=== PATIENT | female | born 1990 | race Caucasian/White ===

== ENCOUNTER 2016-04-29 23:47 | Emergency (ER) | payer MEDICAID ==
[~2016-04-29] VITALS: Ht 165.1 cm; Wt 167.8 kg
[~2016-04-29 23:47] MED LIST: ALBUTEROL0.09 MG/A3 IH; AMOXIL500 M1 PO; AMOXIL500 MG PO; ATENOLOL25 M1 PO; AUGMENTIN1 TA2 PO; BIAXIN500 MG PO; DARVOCET-N 1001 EACH PO; DIFLUCAN150 MG PO; FERROUS SULFAT325 M2 PO; LABETALOL 100M100 M1 PO; MACROBID100 M3 PO; MEDROL 4MG. DOSE4 MG PO; MOTRIN 400MG.400 MG PO; NADOLOL 20 MG T20 MG PO; ORTHO TRI-CYCLE1 TA1 OR; PRENATAL PLUS1 TA1 PO; PRENATAL TABLE1 EACH PO; PYRIDIUM200 M2 PO; SEPTRA DS 800 M1 TAB PO; VISTARIL25 MG PO; ZYRTEC-D 12HR 51 TER PO
[2016-04-29] MEDS ORDERED: BISOPROLOL FM5 MG PO (23:51)
[2016-04-30 00:29] LABS: URINE BILIRUBIN - DIPSTICK NEGATIVE (NEG); URINE BLOOD NEGATIVE (NEG)
--- NOTE | 2016-04-30 00:33 | Emergency Room Report ---
History of Present Illness Time Seen by [id number] Presenting Problem in Triage Pt arrived:Walked Presenting Problem:PT ADVISES SHE WAS LAYING IN BED AND STARTED HAVING A TIGHTNESS IN HER CHEST AND TINGLING IN BOTH ARMS LAST FOR A FEW MINS. 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 N Clinical Suspician of Infection? N Mental Status: 1 - Regular (Normal Baseline) Sepsis Risk:Low Sepsis Risk Have you (or family members/close friends) recently traveled outside the [place]? N If Yes, where/when: Have you had exposure to infectious disease within the past month? N TB? Other? Specify: Source patient, RN notes reviewed, family, old records Exam Limitations no limitations Comment acute episode of ant chest pain with no def palpatation or syncope with no known ht disease Cardiac Chest Pain Chest pain indicative of cardiac No Timing/Duration this evening Severity moderate ALLERGIES Coded Allergies: latex (Mild, I-ITCHING 10/07/15) Onion (R-[id number]/THROAT 10/07/15) PEANUTS (FOOD) (From PEANUTS (FOOD/DRUG)) (E-[id number]/THROAT 10/07/15) Shrimp (10/07/15) cinnamon (10/07/15) methylprednisolone (10/07/15) onion (10/07/15) Home Medications Reported Medications Bisoprolol Fumarate 5 MG PO DAILY #30 History Medical History General CAD? No Angina: No [place]: No Hypertension? Yes Hyperlipidemia? No CHF? No DVT? No PE? No COPD? No Asthma? Yes Anemia? No GERD? Yes Gastric ulcers? No GI Bleed? No Hernia? No Thyroid Problems? No Hypothyroidism? No CVA? No Seizures? No Diabetes? No Insulin Dependent: No Insulin Pump: No Home FSBS? No Renal Insuffiency? No End Stage Renal Disease? No UTI? No Stones? No BPH? No GB Disease: No Nephritic Syndrome? No Asplenia? No Hepatitis? No Sickle Cell Disease? No Arthritis? No Migraines? No Cataracts? No Glaucoma? No MRSA? No HIV? No TB? No Anxiety? No Depression? No Cancer? No More? 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 Respiratory denies cough, denies shortness of breath, denies wheezing Cardiovascular see HPI, chest pain, denies palpitations, denies syncope Gastrointestinal denies abdominal pain, denies diarrhea, denies vomiting Genitourinary denies: dysuria, frequency, hesitancy, hematuria. Musculoskeletal denies back pain, denies joint pain, denies neck pain Skin denies rash Psychiatric/Neurological denies headache, denies seizure Physical Exam Vital Signs Vital Signs Date Time Temp Pulse Resp B/P Pulse O2 O2 Flow FiO2 Ox Delivery Rate 04/29 2348 98.1 71 16 157/92 98 - WBC >12,000 or <4,000 or 10% bands? 2 or more SIRS Criteria Met? B/P:157/92 MAP:113 Creatinine >2.0? UA output<0.5ml/kg/hr for 2 hrs? Platelet count >100,000? Lactate >2.0mmol/1? INR >1.2 or PTT > than 60 sec? Evidence of Organ Dysfunction? Provider documented clinical suspician of infection? N Sepsis Criteria Count: 0 Sepsis Risk: Low Sepsis Risk General Appearance no apparent distress Eye Exam - bilateral eye PERRL, bilateral eye EOMI Ear, Nose, Throat normal ENT inspection Neck supple Respiratory Status No: respiratory distress. Lung Sounds bilateral: lungs clear. 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 No Results/Orders Laboratory Tests 04/30/16 0010: Sodium 140, Potassium 3.9, Chloride 105, Carbon Dioxide 29, BUN 13, Creatinine 0.8, Estimated Creat Clear 290 H, Estimated GFR (MDRD) 89, Glucose 98, Calcium 9.1, Total Bilirubin 0.2, AST 10 L, ALT 21, Alkaline Phosphatase 122 H, Creatine Kinase 71, CK-MB (CK-2) Rel Index 0.7, CK and CKMB Interp 0.5, Troponin I < 0.02, Total Protein 7.5, Albumin 3.3 L, Globulin 4.2 H, Albumin/Globulin Ratio 0.8 L, D-Dimer 110, WBC 10.2, RBC 4.93, Hgb 14.1, Hct 40.4, MCV 82.0 L, RDW 13.8, Plt Count 264, MPV 6.9 L, Gran % 58.0, Gran # 5.9, Lymphocytes % 36.2 , Monocytes % 4.9, Eosinophils % 0.7, Basophils % 0.2, Lymphocytes # 3.7, Monocytes # 0.5, Eosinophils # 0.1, Basophils # 0.0, PUBS MCHC 35.0, MCH 28.7, Urine Color YELLOW, Urine Appearance CLEAR, Urine pH 6.0, Ur Specific [place] 1.025, Urine Protein NEGATIVE, Urine Ketones NEGATIVE, Urine Blood NEGATIVE, Urine Nitrate NEGATIVE, Urine Bilirubin NEGATIVE, Urine Urobilinogen 0.2, Ur Leukocyte Esterase NEGATIVE, Urine WBC OCC, Ur Squamous Epith Cells OCC, Urine Bacteria 1+, Urine Mucus 1+, Urine Glucose NEGATIVE Current Medication Orders Sig/Ramon Start time Last Medication Dose Route Stop Time Status Admin Sodium Chloride 10 ML PRN PRN 04/29 234 AC IV 04/30 2351 Orders Procedure Date/time Status D-DIMER 04/30 0036 Complete CHEST(2 VIEWS-NOT PORTABLE) 04/30 0000 Active ELECTROCARDIOGRAM REQUEST 04/29 2352 Active IV SALINE LOCK 04/29 2352 Active URINALYSIS/COMPLETE 04/29 2352 Complete URINE 04/29 2352 Complete CBC WITH AUTO DIFF 04/29 2352 Complete CARDIAC ENZYMES 04/29 2352 Complete CHEM 12 PROFILE 04/29 2352 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 of ischemic chgs XRAY/CT/US XRAY/CT/US XRAY chest XR interpretation by reviewed by me Xray Results normal/NAD Departure Departure Time of Disposition 0205 Disposition DC Home or Self Care(routine) Clinical Impression Primary Impression: Chest pain Qualifiers: Chest pain type: unspecified Qualified Code: R07.9 - Chest pain, unspecified Condition STABLE Referrals Duane Ayala MD (Family) Patient Instructions DI for Atypical Chest Pain Additional Instructions see pcp for follow up and addt tests Discharge Counseling Counseled pt/family regarding diagnosis, test results, follow up needs ED Critical Care Critical Care No at 0210
--- NOTE | 2016-04-30 00:33 | Emergency Room Report ---
History of Present Illness Time Seen by [id number] Presenting Problem in Triage Pt arrived:Walked Presenting Problem:PT ADVISES SHE WAS LAYING IN BED AND STARTED HAVING A TIGHTNESS IN HER CHEST AND TINGLING IN BOTH ARMS LAST FOR A FEW MINS. 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 N Clinical Suspician of Infection? N Mental Status: 1 - Regular (Normal Baseline) Sepsis Risk:Low Sepsis Risk Have you (or family members/close friends) recently traveled outside the [place]? N If Yes, where/when: Have you had exposure to infectious disease within the past month? N TB? Other? Specify: Source patient, RN notes reviewed, family, old records Exam Limitations no limitations Comment acute episode of ant chest pain with no def palpatation or syncope with no known ht disease Cardiac Chest Pain Chest pain indicative of cardiac No Timing/Duration this evening Severity moderate ALLERGIES Coded Allergies: latex (Mild, I-ITCHING 10/07/15) Onion (A-[id number]-KFLV/THROAT 10/07/15) PEANUTS (FOOD) (From PEANUTS (FOOD/DRUG)) (N-[id number]/THROAT 10/07/15) Shrimp (10/07/15) cinnamon (10/07/15) methylprednisolone (10/07/15) onion (10/07/15) Home Medications Reported Medications Bisoprolol Fumarate 5 MG PO DAILY #30 History Medical History General CAD? No Angina: No [place]: No Hypertension? Yes Hyperlipidemia? No CHF? No DVT? No PE? No COPD? No Asthma? Yes Anemia? No GERD? Yes Gastric ulcers? No GI Bleed? No Hernia? No Thyroid Problems? No Hypothyroidism? No CVA? No Seizures? No Diabetes? No Insulin Dependent: No Insulin Pump: No Home FSBS? No Renal Insuffiency? No End Stage Renal Disease? No UTI? No Stones? No BPH? No GB Disease: No Nephritic Syndrome? No Asplenia? No Hepatitis? No Sickle Cell Disease? No Arthritis? No Migraines? No Cataracts? No Glaucoma? No MRSA? No HIV? No TB? No Anxiety? No Depression? No Cancer? No More? 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 Respiratory denies cough, denies shortness of breath, denies wheezing Cardiovascular see HPI, chest pain, denies palpitations, denies syncope Gastrointestinal denies abdominal pain, denies diarrhea, denies vomiting Genitourinary denies: dysuria, frequency, hesitancy, hematuria. Musculoskeletal denies back pain, denies joint pain, denies neck pain Skin denies rash Psychiatric/Neurological denies headache, denies seizure Physical Exam Vital Signs Vital Signs Date Time Temp Pulse Resp B/P Pulse O2 O2 Flow FiO2 Ox Delivery Rate 04/29 2348 98.1 71 16 157/92 98 - WBC >12,000 or <4,000 or 10% bands? 2 or more SIRS Criteria Met? B/P:157/92 MAP:113 Creatinine >2.0? UA output<0.5ml/kg/hr for 2 hrs? Platelet count >100,000? Lactate >2.0mmol/1? INR >1.2 or PTT > than 60 sec? Evidence of Organ Dysfunction? Provider documented clinical suspician of infection? N Sepsis Criteria Count: 0 Sepsis Risk: Low Sepsis Risk General Appearance no apparent distress Eye Exam - bilateral eye PERRL, bilateral eye EOMI Ear, Nose, Throat normal ENT inspection Neck supple Respiratory Status No: respiratory distress. Lung Sounds bilateral: lungs clear. 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 No Results/Orders Laboratory Tests 04/30/16 0010: Sodium 140, Potassium 3.9, Chloride 105, Carbon Dioxide 29, BUN 13, Creatinine 0.8, Estimated Creat Clear 290 H, Estimated GFR (MDRD) 89, Glucose 98, Calcium 9.1, Total Bilirubin 0.2, AST 10 L, ALT 21, Alkaline Phosphatase 122 H, Creatine Kinase 71, CK-MB (CK-2) Rel Index 0.7, CK and CKMB Interp 0.5, Troponin I < 0.02, Total Protein 7.5, Albumin 3.3 L, Globulin 4.2 H, Albumin/Globulin Ratio 0.8 L, D-Dimer 110, WBC 10.2, RBC 4.93, Hgb 14.1, Hct 40.4, MCV 82.0 L, RDW 13.8, Plt Count 264, MPV 6.9 L, Gran % 58.0, Gran # 5.9, Lymphocytes % 36.2 , Monocytes % 4.9, Eosinophils % 0.7, Basophils % 0.2, Lymphocytes # 3.7, Monocytes # 0.5, Eosinophils # 0.1, Basophils # 0.0, PUBS MCHC 35.0, MCH 28.7, Urine Color YELLOW, Urine Appearance CLEAR, Urine pH 6.0, Ur Specific [place] 1.025, Urine Protein NEGATIVE, Urine Ketones NEGATIVE, Urine Blood NEGATIVE, Urine Nitrate NEGATIVE, Urine Bilirubin NEGATIVE, Urine Urobilinogen 0.2, Ur Leukocyte Esterase NEGATIVE, Urine WBC OCC, Ur Squamous Epith Cells OCC, Urine Bacteria 1+, Urine Mucus 1+, Urine Glucose NEGATIVE Current Medication Orders Sig/Ramon Start time Last Medication Dose Route Stop Time Status Admin Sodium Chloride 10 ML PRN PRN 04/29 234 AC IV 04/30 2351 Orders Procedure Date/time Status D-DIMER 04/30 0036 Complete CHEST(2 VIEWS-NOT PORTABLE) 04/30 0000 Active ELECTROCARDIOGRAM REQUEST 04/29 2352 Active IV SALINE LOCK 04/29 2352 Active URINALYSIS/COMPLETE 04/29 2352 Complete URINE 04/29 2352 Complete CBC WITH AUTO DIFF 04/29 2352 Complete CARDIAC ENZYMES 04/29 2352 Complete CHEM 12 PROFILE 04/29 2352 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 of ischemic chgs XRAY/CT/US XRAY/CT/US XRAY chest XR interpretation by reviewed by me Xray Results normal/NAD Departure Departure Time of Disposition 0205 Disposition DC Home or Self Care(routine) Clinical Impression Primary Impression: Chest pain Qualifiers: Chest pain type: unspecified Qualified Code: R07.9 - Chest pain, unspecified Condition STABLE Referrals Duane Ayala MD (Family) Patient Instructions DI for Atypical Chest Pain Additional Instructions see pcp for follow up and addt tests Discharge Counseling Counseled pt/family regarding diagnosis, test results, follow up needs ED Critical Care Critical Care No at 0210
[2016-04-30 00:34] LABS: HEMOGLOBIN 14.1 g/dL (12.2-16.2); LYMPH # 3.7 K/mm3 (0.7-4.5); LYMPH % 36.2 % (10-50.0)
[2016-04-30 00:36] LABS: URINE SQUAMOUS CELLS OCC #/hpf (0-5)
[2016-04-30 00:59] LABS: BUN 13 mg/dL (7-18)
[2016-04-30 01:00] LABS: GFR (ESTIMATED) 89 ML/MIN (59-)
[2016-04-30 02:14] VITALS: BP 150/70
--- NOTE | 2016-04-30 05:48 | RADIOLOGY REPORT PS360 ---
CHEST(2 VIEWS-NOT PORTABLE) HISTORY: CHEST PAIN ORDERING PHYSICIAN: Kenia Leone MD PATIENT AGE: 25 years COMPARISON: 11/21/2013 FINDINGS: The cardiomediastinal silhouette and pulmonary vascularity are within normal limits. The lungs are clear without infiltrates, suspicious nodules, or pleural effusions. No acute bony abnormalities. IMPRESSION: Negative chest, no acute finding
== END 2016-04-30 02:14 | disposition home or self-care (01) ==
LOC: ER 23:47
PROVIDERS: Emergency Medicine
DX: R07.9 Chest pain, unspecified (principal); I10 Essential (primary) hypertension; K21.9 Gastro-esophageal reflux disease without esophagitis

== ENCOUNTER 2016-09-07 16:12 | Emergency (ER) | payer MEDICAID ==
[~2016-09-07] VITALS: Ht 165.1 cm; Wt 159.7 kg
[~2016-09-07 16:12] MED LIST changes: +BISOPROLOL FM5 MG PO
[2016-09-07] MEDS ORDERED: VENTOLIN H0.09 MG/Ac IH (16:29)
--- OUTSIDE RECORDS SUMMARY | 2016-09-07 16:35 | External Medical Summary Rpt ---
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 20 50 10 10 D JR 1 PH MG AR WI MA LL TA CY IA BL M ET 03 F 93 8 # 03 93 00 07 09 3 28 28 RI 84 FL Ac 06 -1 -2 .0 TE 19 OR ti 21 6- 0- 00 22 EN ve 25 20 20 AI CE 11 10 10 D 5 PH SA AR RA MA H CY L 03 93 8 # 03 93 NA 00 07 09 5 30 30 RI 84 MC Ac DO 09 -2 -2 .0 TE 29 KE ti LO 34 6- 0- 00 96 RI ve L 23 20 20 AI E 20 50 10 10 D JR 1 PH MG AR WI MA LL TA CY IA BL M ET 03 F 93 8 # 03 93 00 07 08 3 28 28 RI 84 FL Ac 06 -1 -2 .0 TE 19 OR ti 21 6- 3- 00 22 EN ve 25 20 20 AI CE 11 10 10 D 5 PH SA AR RA MA H CY L 03 93 8 # 03 93 NA 00 07 08 5 30 30 RI 84 MC Ac DO 09 -2 -2 .0 TE 29 KE ti LO 34 6- 2- 00 96 RI ve L 23 20 20 AI E 20 50 10 10 D JR 1 PH MG AR WI MA LL TA CY IA BL M ET 03 F 93 8 # 03 93 NA 00 07 07 5 30 30 RI 84 MC Ac DO 37 -2 -2 .0 TE 29 KE ti LO 80 6- 6- 00 96 RI ve L 02 20 20 AI E 20 80 10 10 D JR 1 PH MG AR WI MA LL TA CY IA BL M ET 03 F 93 8 # 03 93 00 07 07 3 28 28 RI 84 FL Ac 06 -1 -1 .0 TE 19 OR ti 21 6- 6- 00 22 EN ve 25 20 20 AI CE 11 10 10 D 5 PH SA AR RA MA H CY L 03 93 8 # 03 93 HY 00 06 06 9. 3 [address] 18 -2 -2 00 TE 95 IN ti OX 50 5- 6- 0 30 EY ve YZ 61 20 20 AI IN 30 10 10 D RI E 1 PH CH PA AR AE M MA L 25 CY S MG 03 93 CA 8 P # 03 93 JIMÉNEZ 00 06 06 14 7 RI 83 GA Ac LF 60 -2 -2 .0 TE 95 IN ti AM 35 5- 6- 00 31 EY ve ET 78 20 20 AI HO 12 10 10 D RI XA 8 PH CH ZO AR AE LE MA L -T CY S MP 03 DS 93 8 TA # BL 03 ET 93 NA 00 04 06 2 30 30 RI 83 MC Ac DO 37 -2 -2 .0 TE 09 KE ti LO 80 3- 5- 00 64 RI ve L 02 20 20 AI E 20 80 10 10 D JR 1 PH MG AR WI MA LL TA CY IA BL M ET 03 F 93 8 # 03 93 NA 00 04 05 2 30 30 RI 83 MC Ac DO 37 -2 -2 .0 TE 09 KE ti LO 80 3- 5- 00 64 RI ve L 02 20 20 AI E 20 80 10 10 D JR 1 PH MG AR WI MA LL TA CY IA BL M ET 03 F 93 8 # 03 93 CE 00 05 05 20 10 RI 83 BE Ac FD 78 -1 -1 .0 TE 45 SS ti IN 12 9- 9- 00 39 ON ve IR 17 20 20 AI [address] 30 0 PH EP 0 AR HE MG MA N CY A CA PS 03 UL 93 E 8 # 03 93 TR 45 05 05 80 15 RI 83 MC Ac IA 80 -0 -0 .0 TE 29 KE ti MC 20 7- 7- 00 81 RI ve IN 06 20 20 AI E OL 43 10 10 D JR ON 6 PH E AR WI 0. MA LL 1% CY IA M CR 03 F EA 93 M 8 # 03 93 NA 00 04 04 2 30 30 RI 83 MC Ac DO 37 -2 -2 .0 TE 09 KE ti LO 80 3- 3- 00 64 RI ve L 02 20 20 AI E 20 80 10 10 D JR 1 PH MG AR WI MA LL TA CY IA BL M ET 03 F 93 8 # 03 93 NA 00 01 03 2 30 30 RI 82 MC Ac DO 37 -2 -2 .0 TE 71 KE ti LO 80 1- 5- 00 55 RI ve L 02 20 20 AI E 20 80 10 10 D JR 1 PH MG AR WI MA LL TA CY IA BL M ET 03 F 93 8 # 03 93 NA 00 01 01 00 30 30 RI 81 MC Ac DO 37 -2 -2 .0 TE 81 KE ti LO 80 1- 8- 00 46 RI ve L 02 20 20 AI E 20 80 10 10 D JR 1 PH MG AR WI M LL TA #3 IA BL 93 M ET 8 F NA 00 07 12 05 30 30 RI 79 MC Ac DO 37 -2 -3 .0 TE 32 KE ti LO 80 7- 1- 00 99 RI ve L 02 20 20 AI E 20 80 09 09 D JR 1 PH MG AR WI M LL TA #3 IA BL 93 M ET 8 F NA 00 07 12 04 30 30 RI 79 Ac DO 37 -2 -0 .0 TE 32 KE ti LO 80 7- 3- 00 99 RI ve L 02 20 20 AI E 20 80 09 09 D JR 1 PH MG AR WI M LL TA #3 IA BL 93 M ET 8 F NA 00 07 11 03 30 30 RI 79 Ac DO 37 -2 -0 .0 TE 32 KE ti LO 80 7- 5- 00 99 RI ve L 02 20 20 AI E 20 80 09 09 D JR 1 PH MG AR WI M LL TA #3 IA BL 93 M ET 8 F CE 00 10 10 00 20 7 RI 80 MC Ac FD 78 -1 -2 .0 TE 39 KE ti IN 12 3- 2- 00 50 RI ve IR 17 20 20 AI E 66 09 09 D JR 30 0 PH 0 AR WI MG M LL #3 IA CA 93 M PS 8 F UL E YA 50 10 10 00 28 28 RI 80 MC Ac Z 41 -1 -2 .0 TE 39 KE ti 28 90 3- 2- 00 52 RI ve 40 20 20 AI E TA 50 09 09 D JR BL 3 PH ET AR WI M LL #3 IA 93 M 8 F OF 61 10 10 00 5. 10 RI 80 MC Ac LO 31 -1 -2 00 TE 39 KE ti XA 40 3- 2- 0 51 RI ve CI 01 20 20 AI E N 50 09 09 D JR 0. 5 PH 3% AR WI M LL EA #3 IA R [address] 8 F OP S NA 00 07 10 02 30 30 RI 79 MC Ac DO 37 -2 -0 .0 TE 32 KE ti LO 80 7- 8- 00 99 RI ve L 02 20 20 AI E 20 80 09 09 D JR 1 PH MG AR WI M LL TA #3 IA BL 93 M ET 8 F NA 00 07 09 01 30 30 RI 79 MC Ac DO 37 -2 -1 .0 TE 32 KE ti LO 80 7- 0- 00 99 RI ve L 02 20 20 AI E 20 80 09 09 D JR 1 PH MG AR WI M LL TA #3 IA BL 93 M ET 8 F AM 65 08 09 00 40 10 RI 79 FL Ac OX 86 -2 -1 .0 TE 77 AN ti IC 20 9- 0- 00 79 AG ve IL 01 20 20 AI AN LI 70 09 09 D N 5 PH JA 50 AR ME 0 M S MG #3 P 93 CA 8 PS UL E JIMÉNEZ 00 08 08 00 20 10 RI 79 MC Ac LF 60 -0 -1 .0 TE 45 KE ti AM 35 5- 3- 00 14 RI ve ET 78 20 20 AI E HO 12 09 09 D JR XA 8 PH ZO AR WI LE M LL -T #3 IA MP 93 M 8 F DS TA BL ET NA 00 07 08 00 30 30 RI 79 MC Ac DO 37 -2 -1 .0 TE 32 KE ti LO 80 7- 3- 00 99 RI ve L 02 20 20 AI E 20 80 09 09 D JR 1 PH MG AR WI M LL TA #3 IA BL 93 M ET 8 F YA 50 07 07 00 28 28 RI 79 JU Ac Z 41 -2 -3 .0 TE 28 DY ti 28 90 2- 0- 00 52 ve 40 20 20 AI NA TA 50 09 09 D TA BL 3 PH LI ET AR E M E #3 93 8 JIMÉNEZ 00 07 07 00 20 10 RI 79 JU Ac LF 60 -2 -3 .0 TE 28 DY ti AM 35 2- 0- 00 51 ve ET 78 20 20 AI NA HO 12 09 09 D TA XA 8 PH LI ZO AR E LE M E -T #3 MP 93 8 DS TA BL ET NA 00 01 07 05 30 30 RI 76 BE Ac DO 37 -2 -0 .0 TE 83 SS ti LO 80 6- 2- 00 56 ON ve L 02 20 20 AI 20 [address] 1 PH EP MG AR HE M N TA #3 A BL 93 ET 8 NA 00 01 06 04 30 30 RI 76 BE Ac DO 37 -2 -0 .0 TE 83 SS ti LO 80 6- 4- 00 56 ON ve L 02 20 20 AI 20 [address] 1 PH EP MG AR HE M N TA #3 A BL 93 ET 8 NA 00 01 05 03 30 30 RI 76 BE Ac DO 37 -2 -0 .0 TE 83 SS ti LO 80 6- 7- 00 56 ON ve L 02 20 20 AI 20 [address] 1 PH EP MG AR HE M N TA #3 A BL 93 ET 8 NA 00 01 04 02 30 30 RI 76 BE Ac DO 37 -2 -0 .0 TE 83 SS ti LO 80 6- 9- 00 56 ON ve L 02 20 20 AI 20 [address] 1 PH EP MG AR HE M N TA #3 A BL 93 ET 8 NA 00 01 03 01 30 30 RI 76 BE Ac DO 37 -2 -1 .0 TE 83 SS ti LO 80 6- 2- 00 56 ON ve L 02 20 20 AI 20 [address] 1 PH EP MG AR HE M N TA #3 A BL 93 ET 8 NA 00 01 02 00 30 30 RI 76 BE Ac DO 37 -2 -1 .0 TE 83 SS ti LO 80 6- 2- 00 56 ON ve L 02 20 20 AI 20 [address] 1 PH EP MG AR HE M N TA #3 A BL 93 ET 8 NA 00 08 01 00 30 30 RI 76 BE Ac DO 37 -1 -1 .0 TE 44 SS ti LO 80 7- 5- 00 70 ON ve L 02 20 20 AI 20 [address] 1 PH EP MG AR HE M N TA #3 A BL 93 ET 8 NA 00 08 12 03 30 30 RI 74 BE Ac DO 37 -1 -0 .0 TE 57 SS ti LO 80 7- 4- 00 31 ON ve L 02 20 20 AI 20 [address] 1 PH EP MG AR HE M N TA #3 A BL 93 ET 8 NA 00 08 10 02 30 30 RI 74 BE Ac DO 37 -1 -2 .0 TE 57 SS ti LO 80 7- 3- 00 31 ON ve L 02 20 20 AI 20 [address] 1 PH EP MG AR HE M N TA #3 A BL 93 ET 8 NA 00 08 09 01 30 30 RI 74 BE Ac DO 37 -1 -2 .0 TE 57 SS ti LO 80 7- 6- 00 31 ON ve L 02 20 20 AI 20 [address] 1 PH EP MG AR HE M N TA #3 A BL 93 ET 8 NA 00 08 08 00 30 30 RI 74 BE Ac DO 37 -1 -2 .0 TE 57 SS ti LO 80 7- 8- 00 31 ON ve L 02 20 20 AI 20 [address] 1 PH EP MG AR HE M N TA #3 A BL 93 ET 8 NA 00 03 08 04 30 30 RI 72 BE Ac DO 37 -2 -0 .0 TE 63 SS ti LO 80 7- 1- 00 16 ON ve L 02 20 20 AI 20 [address] 1 PH EP MG AR HE M N TA #3 A BL 93 ET 8 NA 00 03 07 03 30 30 RI 72 BE Ac DO 37 -2 -0 .0 TE 63 SS ti LO 80 7- 3- 00 16 ON ve L 02 20 20 AI 20 [address] 1 PH EP MG AR HE M N TA #3 A BL 93 ET 8 NA 00 03 06 02 30 30 RI 72 BE Ac DO 37 -2 -0 .0 TE 63 SS ti LO 80 7- 5- 00 16 ON ve L 02 20 20 AI 20 [address] 1 PH EP MG AR HE M N TA #3 A BL 93 ET 8 NA 00 03 05 01 30 30 RI 72 No Ac DO 37 -2 -0 .0 TE 63 t ti LO 80 7- 8- 00 16 Av ve L 02 20 20 AI ai 20 80 08 08 D la 1 PH bl MG AR e M TA #3 BL 93 ET 8 NA 00 03 04 00 30 30 RI 72 No Ac DO 37 -2 -1 .0 TE 63 t ti LO 80 7- 0- 00 16 Av ve L 02 20 20 AI ai 20 80 08 08 D la 1 PH bl MG AR e M TA #3 BL 93 ET 8 NA 00 10 04 05 30 30 RI 70 No Ac DO 37 -0 -0 .0 TE 00 t ti LO 80 3- 7- 00 18 Av ve L 02 20 20 AI ai 20 80 07 08 D la 1 PH bl MG AR e M TA #3 BL 93 ET 8 NA 00 10 03 04 30 30 RI 70 No Ac DO 37 -0 -2 .0 TE 00 t ti LO 80 3- 6- 00 18 Av ve L 02 20 20 AI ai 20 80 07 08 D la 1 PH bl MG AR e M TA #3 BL 93 ET 8 WV 00 02 03 00 8. 2 RI 71 No Ac OM 60 -1 -2 00 TE 93 t ti ET 35 0- 6- 0 51 Av ve [place] 43 20 20 AI ai ZI 82 08 08 D la NE 1 PH bl AR e 25 M #3 MG 93 8 TA BL ET Immunization Name Date Route CVX Reacti Commen Provid Is Given on t er Refuse d MCV4 114 Mening CHAVEZ No MENACW [place] [facility] ACYW1 admini 35 IM stered USE ; formul ation not specif ied. MCV4 136 Mening CHAVEZ No MENACW 2011 [facility] [facility] ACYW-1 admini 35 IM stered USE ; formul ation not specif ied. Vital Signs 03-05-2013 23:12 Name Value Interpretat Reference Comment ion Range BP 77 mm[Hg] Diastolic BP Systolic 128 mm[Hg] Heart 96 /min Rate/Pulse O2% 99 % Respiratory 20 /min Rate 03-05-2013 21:03 Name Value Interpretat Reference Comment ion Range BP 68 mm[Hg] Diastolic BP Systolic 117 mm[Hg] Heart 98 /min Rate/Pulse O2% 97 % Respiratory 18 /min Rate 02-02-2013 16:34 Name Value Interpretat Reference Comment ion Range BP 100 mm[Hg] Diastolic BP Systolic 154 mm[Hg] Heart 80 /min Rate/Pulse O2% 96 % Respiratory 20 /min Rate 02-02-2013 15:40 Name Value Interpretat Reference Comment ion Range BP 79 mm[Hg] Diastolic BP Systolic 159 mm[Hg] Heart 79 /min Rate/Pulse O2% 95 % Respiratory 20 /min Rate 01-23-2013 13:40 Name Value Interpretat Reference Comment ion Range BP 69 mm[Hg] Diastolic BP Systolic 104 mm[Hg] Heart 92 /min Rate/Pulse O2% 99 % Respiratory 18 /min Rate 01-23-2013 11:32 Name Value Interpretat Reference Comment ion Range Heart 95 /min Rate/Pulse O2% 97 % Respiratory 12 /min Rate 01-23-2013 11:04 Name Value Interpretat Reference Comment ion Range BP 71 mm[Hg] Diastolic BP Systolic 119 mm[Hg] 01-17-2013 21:25 Name Value Interpretat Reference Comment ion Range Body 98.2 [degF] Temperature BP 98 mm[Hg] Diastolic BP Systolic 129 mm[Hg] Heart 90 /min Rate/Pulse O2% 100 % Respiratory 20 /min Rate 01-17-2013 20:52 Name Value Interpretat Reference Comment ion Range Heart 81 /min Rate/Pulse O2% 96 % Respiratory 21 /min Rate 01-12-2013 22:54 Name Value Interpretat Reference Comment ion Range Body 97.5 [degF] Temperature BP 88 mm[Hg] Diastolic BP Systolic 129 mm[Hg] Heart 91 /min Rate/Pulse O2% 100 % Respiratory 20 /min Rate 01-12-2013 21:51 Name Value Interpretat Reference Comment ion Range Heart 96 /min Rate/Pulse O2% 98 % Respiratory 20 /min Rate 01-12-2013 21:22 Name Value Interpretat Reference Comment ion Range BP 92 mm[Hg] Diastolic BP Systolic 165 mm[Hg] Results Labs Lab Lab Date Result Refere Interp Status Commen Order Detail nces retati t Range on URINALYSIS/COMPLETE (03-05-2013 20:14) URINE 12-15-2 YELLOW YELLOW complet COLOR 013 ed 20:14 URINE 12-15-2 SL CLEAR complet APPEARA 013 CLOUDY ed NCE 20:14 URINE 12-15-2 NEGATIV NEG complet GLUCOSE 013 E ed - 20:14 DIPSTIC K URINE 12-15-2 NEGATIV NEG complet BILIRUB 013 E ed IN - 20:14 DIPSTIC K URINE 12-15-2 NEGATIV NEG complet KETONE 013 E mg/dL ed 20:14 URINE 12-15-2 Greater 1.005-1 complet SPECIFI 013 than .030 ed C 20:14 or GRAVITY equal to 1.030 URINE 12-15-2 NEGATIV NEG complet BLOOD 013 E ed 20:14 URINE 12-15-2 5.5 UNK 5.0-8.5 complet PH 013 ed 20:14 URINE 12-15-2 NEGATIV NEG complet PROTEIN 013 E mg/dL ed - 20:14 DIPSTIC K URINE 12-15-2 0.2 NEG complet UROBILI 013 E.U./dL ed NOGEN - 20:14 DIPSTIC K URINE 12-15-2 NEGATIV NEG complet NITRATE 013 E ed - 20:14 DIPSTIC K URINE 12-15-2 NEGATIV NEG complet LEUK 013 E ed ESTERAS 20:14 E URINE 12-15-2 10-20 0-5 complet SQUAMOU 013 #/hpf ed S CELLS 20:14 URINE 15-2 4+ NONE complet CALCIUM 013 #/hpf ed 20:14 OXALATE CRYSTAL S URINE 15-2 TRACE OCC complet MUCUS 013 ed 20:14 URINALYSIS/COMPLETE (02-02-2013 16:30) URINE 11-14-2 YELLOW YELLOW complet COLOR 013 ed 16:30 URINE 11-14-2 CLEAR CLEAR complet APPEARA 013 ed NCE 16:30 URINE 11-14-2 NEGATIV NEG complet GLUCOSE 013 E ed - 16:30 DIPSTIC K URINE 11-14-2 NEGATIV NEG complet BILIRUB 013 E ed IN - 16:30 DIPSTIC K URINE 11-14-2 NEGATIV NEG complet KETONE 013 E mg/dL ed 16:30 URINE 11-14-2 Less 1.005-1 complet SPECIFI 013 than or .030 ed C 16:30 equal GRAVITY to 1.005 URINE 11-14-2 NEGATIV NEG complet BLOOD 013 E ed 16:30 URINE 11-14-2 6.5 UNK 5.0-8.5 complet PH 013 ed 16:30 URINE 11-14-2 NEGATIV NEG complet PROTEIN 013 E mg/dL ed - 16:30 DIPSTIC K URINE 11-14-2 0.2 NEG complet UROBILI 013 E.U./dL ed NOGEN - 16:30 DIPSTIC K URINE 11-14-2 NEGATIV NEG complet NITRATE 013 E ed - 16:30 DIPSTIC K URINE 11-14-2 NEGATIV NEG complet LEUK 013 E ed ESTERAS 16:30 E URINE 11-14-2 3-5 O complet WBC 013 wbc/hpf ed 16:30 URINE 11-14-2 OCC 0-5 complet SQUAMOU 013 #/hpf ed S CELLS 16:30 AMNISURE RUPTURE TEST (02-02-2013 15:40) AMNISUR 11-14-2 NEGATIV complet E 013 E FOR ed 15:40 RUPTURE RUPTURE TEST URINALYSIS/COMPLETE (01-23-2013 11:15) URINE 11-04-2 YELLOW YELLOW complet COLOR 013 ed 11:15 URINE 11-04-2 CLEAR CLEAR complet APPEARA 013 ed NCE 11:15 URINE 11-04-2 NEGATIV NEG complet GLUCOSE 013 E ed - 11:15 DIPSTIC K URINE 01-23-2 NEGATIV NEG complet BILIRUB 013 E ed IN - 11:15 DIPSTIC K URINE 01-23-2 NEGATIV NEG complet KETONE 013 E mg/dL ed 11:15 URINE 01-23-2 1.010 1.005-1 complet SPECIFI 013 UNK .030 ed C 11:15 GRAVITY URINE 01-23-2 NEGATIV NEG complet BLOOD 013 E ed 11:15 URINE 01-23-2 7.5 UNK 5.0-8.5 complet PH 013 ed 11:15 URINE 01-23-2 NEGATIV NEG complet PROTEIN 013 E mg/dL ed - 11:15 DIPSTIC K URINE 01-23-2 0.2 NEG complet UROBILI 013 E.U./dL ed NOGEN - 11:15 DIPSTIC K URINE 01-23-2 NEGATIV NEG complet NITRATE 013 E ed - 11:15 DIPSTIC K URINE 01-23-2 NEGATIV NEG complet LEUK 013 E ed ESTERAS 11:15 E URINE 01-23-2 OCC 0 complet RBC 013 rbc/hpf ed 11:15 URINE 01-23-2 3-5 O complet WBC 013 wbc/hpf ed 11:15 URINE 01-23-2 3-5 0-5 complet SQUAMOU 013 #/hpf ed S CELLS 11:15 B-HCG Ur Ql (01-17-2013 20:12) B-HCG 01-17-2 POSITIV NEG complet Ur Ql 013 E ed 20:12 URINALYSIS/COMPLETE (01-17-2013 20:12) URINE 01-17-2 YELLOW YELLOW complet COLOR 013 ed 20:12 URINE 01-17-2 SL CLEAR complet APPEARA 013 CLOUDY ed NCE 20:12 URINE 01-17-2 NEGATIV NEG complet GLUCOSE 013 E ed - 20:12 DIPSTIC K URINE 01-17-2 NEGATIV NEG complet BILIRUB 013 E ed IN - 20:12 DIPSTIC K URINE 01-17-2 NEGATIV NEG complet KETONE 013 E mg/dL ed 20:12 URINE 01-17-2 Greater 1.005-1 complet SPECIFI 013 than .030 ed C 20:12 or GRAVITY equal to 1.030 URINE 01-17-2 NEGATIV NEG complet BLOOD 013 E ed 20:12 URINE 01-17-2 6.0 UNK 5.0-8.5 complet PH 013 ed 20:12 URINE 01-17-2 NEGATIV NEG complet PROTEIN 013 E mg/dL ed - 20:12 DIPSTIC K URINE 01-17-2 0.2 NEG complet UROBILI 013 E.U./dL ed NOGEN - 20:12 DIPSTIC K URINE 01-17-2 NEGATIV NEG complet NITRATE 013 E ed - 20:12 DIPSTIC K URINE 01-17-2 NEGATIV NEG complet LEUK 013 E ed ESTERAS 20:12 E URINE 01-17-2 3-5 0 complet RBC 013 rbc/hpf ed 20:12 URINE 01-17-2 OCC O complet WBC 013 wbc/hpf ed 20:12 URINE 01-17-2 10-20 0-5 complet SQUAMOU 013 #/hpf ed S CELLS 20:12 URINE 01-17-2 1+ O complet BACTERI 013 ed A 20:12 URINE 01-17-2 1+ OCC complet MUCUS 013 ed 20:12 URINALYSIS/COMPLETE (01-12-2013 22:30) URINE 24-2 YELLOW YELLOW complet COLOR 013 ed 22:30 URINE 01-12-2 CLEAR CLEAR complet APPEARA 013 ed NCE 22:30 URINE 01-12-2 NEGATIV NEG complet GLUCOSE 013 E ed - 22:30 DIPSTIC K URINE 01-12-2 NEGATIV NEG complet BILIRUB 013 E ed IN - 22:30 DIPSTIC K URINE 01-12-2 1+ NEG complet KETONE 013 mg/dL ed 22:30 URINE 10-24-2 Less 1.005-1 complet SPECIFI 013 than or .030 ed C 22:30 equal GRAVITY to 1.005 URINE 10-24-2 3+ NEG complet BLOOD 013 ed 22:30 URINE 10-24-2 6.0 UNK 5.0-8.5 complet PH 013 ed 22:30 URINE 10-24-2 NEGATIV NEG complet PROTEIN 013 E mg/dL ed - 22:30 DIPSTIC K URINE 10-24-2 0.2 NEG complet UROBILI 013 E.U./dL ed NOGEN - 22:30 DIPSTIC K URINE 10-24-2 NEGATIV NEG complet NITRATE 013 E ed - 22:30 DIPSTIC K URINE 10-24-2 NEGATIV NEG complet LEUK 013 E ed ESTERAS 22:30 E URINE 24-2 5-10 0 complet RBC 013 rbc/hpf ed 22:30 URINE 1024-2 20-50 0-5 complet SQUAMOU 013 #/hpf ed S CELLS 22:30 Procedures Procedure DOS Code Location Performer Comment FIBRIN 24126 LEANDRO REEVES DGRADJ 7 [facility] PRODUCTS INC INC D-DIMER QUAL/SEMI COMFORT ECG 66665 LEANDRO REEVES ROUTINE 7 [facility] ECG INC INC W/LEAST 12 LDS TRCG ONLY W/O I&R CREATINE 84634 LEANDRO REEVES KINASE 7 [facility] TOTAL INC INC BLOOD 79974 LEANDRO REEVES COUNT 7 [facility] COMPLETE INC INC AUTO&AUTO DIFRNTL WBC URNLS DIP 02537 LEANDRO REEVES 7 [facility] STICK/TAB INC INC [place] [address] LEANDRO REEVES TROPONIN 7 [facility] QUANTITAT INC INC OPAL ECG 86432 LEANDRO FERRELL ROUTINE 7 [facility] W/LEAST P 12 LDS I&R ONLY RADIOLOGI 11719 [facility] C EXAM 7 MEDICAL MEDICAL CHEST 2 IMAGING IMAGING VIEWS ASS ASS FRONTAL&L ATERAL URINE 40430 LEANDRO REEVES 7 [facility] TEST INC INC VISUAL COLOR CMPRSN METHS COMPREHEN 98232 LEANDRO REEVES SIVE 7 [facility] METABOLIC INC INC PANEL CREATINE 82643 LEANDRO REEVES KINASE MB 7 [facility] FRACTION INC INC ONLY ECHO 47983 [place] [facility] R-T 6 MEDICAL 2D SERV W/WOM-MOD FOUNDATIO E COMPL N SPEC&COLR D LIPID 76033 LEANDRO REEVES PANEL 6 [facility] INC INC BLOOD 67264 LEANDRO REEVES COUNT 6 [facility] COMPLETE INC INC AUTO&AUTO DIFRNTL WBC COLLECTIO 67134 LEANDRO REEVES N VENOUS 6 [facility] BLOOD INC INC VENIPUNCT URE COMPREHEN 03443 LEANDRO REEVES SIVE 6 [facility] [address] LEANDRO REEVES THYROID 6 [facility] STIMULATI INC INC NG HORMONE TSH DELIVERY [id number] LEANDRO REEVES PRODUCTS 6 [facility] OF INC INC CONCEPTIO N EXTERNAL NEURAXIAL 42311 [facility] FEEBACK LABOR 6 ANESTH REE ANALG/ANE OF THE S PLND BLUE VAGINAL DELIVERY VAGINAL 31424 [facility] DELIVERY 6 PHYSICIAN VARUN ONLY S GROUP W/POSTPAR MIC CARE URNLS DIP 12401 LEANDRO REEVES 6 [facility] STICK/TAB INC INC LET REAGENT AUTO MICROSCOP Y EVAL C/V 98814 LEANDRO REEVES AMNIOTIC 6 [facility] FLUID INC INC PROTEIN QUAL EA SPECIMEN 73204 LEANDRO REEVES NONSTRESS 6 [facility] TEST INC INC BASIC 59954 LEANDRO REEVES METABOLIC 6 [facility] [place] [address] LEANDRO REEVES BLOOD/URI 6 [facility] C ACID INC INC TRANSFERA 28438 LEANDRO REEVES SE 6 [facility] ASPARTATE INC INC AMINO AST SGOT TRANSFERA 08826 LEANDRO REEVES SE 6 [facility] ALANINE INC INC AMINO ALT SGPT URNLS DIP 21090 LEANDRO REEVES 6 [facility] STICK/TAB INC INC LET REAGENT AUTO MICROSCOP Y BLOOD 40051 LEANDRO REEVES COUNT 6 [facility] COMPLETE INC INC AUTO&AUTO DIFRNTL WBC ECG 96395 ASHLEY SINHA ROUTINE 6 MEDICAL NAN ECG SERV W/LEAST FOUNDATIO 12 LDS N I&R ONLY THROMBOPL 05825 LEANDRO REEVES ASTIN 6 [facility] TIME INC INC PARTIAL PLASMA/WH OLE BLOOD CULTURE 42871 LEANDRO REEVES BACTERIAL 6 [facility] INC INC QUANTTATI VE COLONY COUNT URINE FIBRIN 72874 LEANDRO REEVES DGRADJ 6 [facility] PRODUCTS INC INC D-DIMER QUAL/SEMI COMFORT FIBRINOGE 88722 LEANDRO REEVES N 6 [facility] ACTIVITY INC INC PROTHROMB 30793 LEANDRO REEVES IN TIME 6 [facility] INC INC ECG 48188 [facility] ROUTINE 6 Y Y ECG [facility] W/LEAST 12 LDS TRCG ONLY W/O I&R 82367 [facility] NONSTRESS 6 PHYSICIAN CORI TEST S GROUP 65138 [facility] NONSTRESS 6 PHYSICIAN VARUN TEST S GROUP URNLS DIP 61185 LEANDRO REEVES 6 [facility] STICK/TAB INC INC LET REAGENT AUTO MICROSCOP Y CULTURE 59636 [facility] BACTERIAL 6 [facility] INC INC QUANTTATI VE COLONY COUNT URINE US PREG 59649 [facility] UTERUS 6 PHYSICIAN VARUN REAL TIME S GROUP F/U TRNSABDL PER FETUS HANDLG&/O 67122 [facility] R CONVEY 6 PHYSICIAN VARUN OF SPEC S GROUP FOR TR OFFICE TO LAB 54885 [facility] 6 PHYSICIAN VARUN AL S GROUP PROFILE W/O NON-STRES S TESTING PARTICLE 47977 [facility] AGGLUTINA 6 [facility] [place] [address] [facility] INFUSION 6 [facility] THERAPY/P INC INC ROPHYLAXI S /DX 1ST TO 1 HR [address]1998 [facility] NONSTRESS 6 [facility] TEST INC INC UNCLASSIF J3490 [facility] IED DRUGS 6 [facility] INC INC COLLECTIO 15878 [facility] N 6 PHYSICIAN VARUN CAPILLARY S GROUP BLOOD SPECIMEN GLUCOSE 23878 [facility] POST 6 PHYSICIAN PHYSICIAN GLUCOSE S GROUP S GROUP DOSE URNLS DIP 66608 [facility] STICK/TAB INC INC LET REAGENT AUTO MICROSCOP Y EVAL C/V 65408 [facility] AMNIOTIC 6 [facility] FLUID INC INC PROTEIN QUAL EA SPECIMEN 95055 [facility] NONSTRESS 6 PHYSICIAN VARUN TEST S GROUP 35316 [facility] NONSTRESS 6 PHYSICIAN VARUN TEST S GROUP URNLS DIP 20085 [facility] STICK/TAB INC INC LET REAGENT AUTO [place]CROSCOP [place] PREG 03700 [facility] UTERUS 6 [facility] AFTER 1ST IMAGING TRIMEST ASS GESTATION [place] PREG 35852 [facility] UTERUS 6 [facility] W/DETAIL INC INC MONALISA 1ST GESTATION IAADIADOO 36963 [facility]ON 6 [facility] INTERNAL CCUS MED GROUP A UNCLASSIF J3490 [facility] IED DRUGS 6 [facility] INC INC CULTURE 59447 [facility] BCT 6 [facility] ISOL&PRSM INC INC PTV ID ISOLATE EA URINE CULTURE 91278 [facility] BACTERIAL 6 [facility] INC INC QUANTTATI VE COLONY COUNT URINE SUSCEPTIB 06141 [facility] LTY STDY 6 [facility] ANTIMICRB INC INC IAL MICRO/AGA R DILUTJ URNLS DIP 21960 [facility] STICK/TAB INC INC LET REAGENT AUTO MICROSCOP Y RADEX 32122 [facility] ANKLE 6 [facility] COMPLETE INC INC MINIMUM 3 VIEWS RADIOLOGI 77271 [facility] C 6 [facility] EXAMINATI INC INC ON KNEE 3 VIEWS RADIOLOGI 51457 [facility]LE[facility] ALL C 6 MEDICAL EXAMINATI IMAGING ON ANKLE ASS 2 VIEWS RADIOLOGI 62719 [facility] ALL C 6 MEDICAL EXAMINATI IMAGING ON KNEE ASS 1/2 VIEWS INF AGT G0432 [facility] AB DETECT 6 [facility] EIA TECH INC INC HIV-1&/HI V-2 SCR ALPHA-FET 25872 [facility] OPROTEIN 6 [facility] SERUM INC INC OBSTETRIC 74469 [facility] PANEL 6 [facility] INC INC COLLECTIO 82522 [facility] N VENOUS 6 [facility] BLOOD INC INC VENIPUNCT URE GONADOTRO 50942 [facility] PIN 6 [facility] [place] [address] [facility]AN[facility] ESTRIOL [address] [facility] [place] PREG [address]29 [facility] GUILHERME UTERUS 5 PHYSICIAN VARUN REAL TIME S GROUP W/IMAGE DCMTN TRANSVAG IADNA 79574 [facility] CHLAMYDIA 5 [facility] INC INC TRACHOMAT IS AMPLIFIED PROBE TQ IADNA 71904 [facility] NEISSERIA 5 [facility] INC [place] [address] [facility] THYROID 5 [facility] STIMULATI INC INC NG HORMONE TSH COMPREHEN 13286 [facility] SIVE 5 [facility] [facility] METABOLIC INC INC PANEL COLLECTIO 66238 LEANDRO REEVES N VENOUS 5 [facility] BLOOD INC INC VENIPUNCT URE CUL BACT 10181 LEANDRO REEVES XCPT 5 [facility] URINE INC INC BLOOD/STO OL AEROBIC ISOL BLOOD 91295 LEANDRO REEVES COUNT 5 [facility] COMPLETE INC INC AUTO&AUTO DIFRNTL WBC BASIC 77495 LEANDRO REEVES METABOLIC 5 [facility] PANEL INC INC CALCIUM TOTAL TX MISSED 23130 [facility] GUILHERME 5 PHYSICIAN VARUN FIRST S GROUP TRIMESTER SURGICAL ECG 01948 LEANDRO BERRY JR ROUTINE 5 [facility] W/LEAST P 12 LDS I&R ONLY BLOOD 38397 LEANDRO REEVES COUNT 5 [facility] COMPLETE INC INC AUTO&AUTO DIFRNTL WBC ANESTHESI 32497 [facility] NARVAEZ MICHELE A 5 ANESTH INCOMPLET OF THE E/[place] [address] [facility], MICHAEL SURG 5 [facility] PATHOLOGY GROSS&TONY ROSCOPIC EXAM BLOOD 57948 LEANDRO REEVES COUNT 5 [facility] COMPLETE INC INC AUTO&AUTO DIFRNTL WBC URNLS DIP 44790 LEANDRO REEVES 5 [facility] STICK/TAB INC INC LET REAGENT AUTO MICROSCOP Y COMPREHEN 76839 LEANDRO REEVES SIVE 5 [facility] METABOLIC INC INC PANEL GONADOTRO 41663 LEANDRO REEVES PIN 5 [facility] CHORIONIC INC INC QUANTITAT OPAL US PREG 94882 ALVIN RUIZ UTERUS 5 [facility]ICAL JANE REAL TIME IMAGING W/IMAGE ASS DCMTN TRANSVAG US PREG 80983 LEANDRO REEVES UTERUS 5 [facility] REAL TIME INC INC W/IMAGE DCMTN TRANSVAG INF AGT G0432 LEANDRO REEVES AB DETECT 5 [facility] EIA TECH INC INC HIV-1&/HI V-2 SCR OBSTETRIC 49007 LEANDRO REEVES PANEL 5 [facility] INC INC COLLECTIO 95504 LEANDRO REEVES N VENOUS 5 [facility] BLOOD INC INC VENIPUNCT URE IADNA 21988 [facility], SALVADOR CHLAMYDIA 5 [facility] TRACHOMAT IS AMPLIFIED PROBE TQ IADNA 50894 [facility], [facility] NEISSERIA 5 LLC GONORRHOE AE AMPLIFIED PROBE TQ CYTP 91145 [facility], SAL[facility]ADOR CERVICAL/ 5 LLC VAGINAL REQ INTERP PHYSICIAN CYTP C/V 35756 [facility], SAL[facility] AUTO THIN 5 LLC LYR PREPJ SCR MNL RESCR PHYS CONTRACEP A4267 [facility] TIVE 5 [facility] SUPPLY [facility] DEPT [facility] DEPT CONDOM KORI KORI MALE EACH IADNA 57642 [facility] NEISSERIA 5 [facility] DEPT [facility] DEPT GONORRHOE KORI KORI AE AMPLIFIED PROBE TQ URNLS DIP 30415 [facility] 5 [facility] STICK/TAB [facility] DEPT [facility] DEPT LET RGNT KORI KORI NON-AUTO W/O MICRSCP IADNA 25703 [facility] CHLAMYDIA 5 [facility] DEPT TRACHOMAT KORI KORI IS AMPLIFIED PROBE TQ ECG [address] [facility] ROUTINE 4 NNAMDI ECG EMERGENCY W/LEAST PHYS 12 LDS I&R ONLY VAGINAL 51759 GUILHERME VANEGAS DELIVERY 4 VARUN VARUN ONLY W/POSTPAR MCI CARE NEURAXIAL 27660 ALEE [facility] 4 ANALG/ANE S PLND VAGINAL DELIV[place]PA[place] OF 7569 LEANDRO REEVES OTHER 4 [facility] CURRENT INC INC OBSTETRIC LACERATIO N 38620 GUILHERME VANEGAS BIOPHYSIC 4 VARUN VARUN AL PROFILE W/O NON-STRES S TESTING CUL BACT 78238 COMBINED COMBINED XCPT 4 PHYSICIAN PHYSICIAN URINE S LA S LA BLOOD/STO OL AEROBIC ISOL US PREG 93331 VANEGAS VANEGAS UTERUS 4 VARUN VARUN REAL TIME F/U TRNSABDL PER FETUS DOPPLER 66776 VANEGAS VANEGAS VELOCIMET 4 VARUN VARUN RY UMBILICAL ARTERY DOPPLER 32960 VANEGAS VANEGAS VELOCIMET 4 VARUN VARUN RY UMBILICAL ARTERY US PREG 67927 VANEGAS VANEGAS UTERUS 4 VARUN VARUN REAL TIME F/U TRNSABDL PER FETUS 89685 VANEGAS VANEGAS BIOPHYSIC 4 VARUN VARUN AL PROFILE W/O NON-STRES S TESTING COLLECTIO 23909 VANEGAS VANEGAS N 4 VARUN VARUN CAPILLARY BLOOD SPECIMEN GLUCOSE 77114 VANEGAS VANEGAS TOLERANCE 4 VARUN VARUN TEST GTT 3 SPECIMENS 41516 MARBELLA SHEIKHPEL NONSTRESS 4 CORI CORI TEST 67667 MANNIE SHEIKHPEL NONSTRESS 3 MARBELLA CABRERA CORI TEST US PREG 94763 GUILHERME VANEGAS UTERUS 3 VARUN VARUN AFTER TRIMEST GESTATION TISS JENNIFER 86014 LEANDRO REEVES SLIDE 3 [facility] SAMPS INC INC SKN/HR/NL S FNGI/ECTO PARASIT SMR PRIM 72355 LEANDRO REEVES SRC WET 3 [facility] MOUNT INC INC NFCT AGT URNLS DIP 72331 LEANDRO REEVES 3 [facility] STICK/TAB INC INC LET REAGENT AUTO MICROSCOP Y US PREG 58043 SARA SARA UTERUS 3 JANE JANE REAL TIME W/IMAGE DCMTN TRANSVAG URNLS DIP 96504 LEANDRO REEVES 3 [facility] STICK/TAB INC [place] [address] LEANDRO REEVES 3 [facility] UTERUS INC INC LIMITED 1/> FETUSES EVAL C/V 70405 LEANDRO REEVES AMNIOTIC 3 [facility] FLUID INC INC PROTEIN QUAL EA SPECIMEN US PREG 89329 SARA SARA UTERUS 3 JANE JANE AFTER 1ST TRIMEST 1/ GESTATION TISS JENNIFER 30437 LEANDRO REEVES SLIDE 3 [facility] SAMPS INC INC SKN/HR/NL S FNGI/ECTO PARASIT SMR PRIM 22211 LEANDRO REEVES SRC WET 3 [facility] MOUNT INC INC NFCT AGT US PREG 12850 LEANDRO REEVES UTERUS 3 [facility] REAL TIME INC INC W/IMAGE DCMTN TRANSVAG URNLS DIP 86895 LEANDRO REEVES 3 [facility] STICK/TAB INC INC LET REAGENT AUTO MICROSCOP Y URNLS DIP 61707 LEANDRO REEVES 3 [facility] STICK/TAB INC INC LET REAGENT AUTO MICROSCOP Y URINE 61246 LEANDRO REEVES 3 [facility] TEST INC INC VISUAL COLOR CMPRSN METHS US PREG 64941 GUILHERME SNOWE UTERUS 3 VARUN VARUN REAL TIME W/IMAGE DCMTN TRANSVAG URNLS DIP 03994 LEANDRO REEVES 3 [facility] STICK/TAB INC INC LET REAGENT AUTO MICROSCOP Y US PREG 94016 SARA SARA UTERUS 3 JANE JANE REAL TIME W/IMAGE DCMTN TRANSVAG US PREG 72651 VANEGAS VANEGAS UTERUS 3 VARUN VARUN REAL TIME W/IMAGE DCMTN TRANSVAG ANTIBODY 71982 COMBINED COMBINED CHLAMYDIA 3 PHYSICIAN PHYSICIAN S LA S LA CUL BACT 47594 COMBINED COMBINED XCPT 3 PHYSICIAN PHYSICIAN URINE S LA S LA BLOOD/STO OL AEROBIC ISOL URINE 43373 GUILHERME SNOWE 3 VARUN VARUN TEST VISUAL COLOR CMPRSN METHS URINE 47894 LEANDRO REEVES 3 [facility] CENTER VISUAL COLOR CMPRSN METHS DEMO&/PETR 94125 KAILASH KAILASH L OF PT 2 NIKKY NIKKY UTILIZ AERSL GEN/NEB/I NHLR/IP INTRACUTA 22277 KAILASH KAILASH NEOUS 2 NIKKY NIKKY TESTS W/ALLERGE LUCY EXTRACTS PERCUTANE 65478 KAILASH KAILASH OUS TESTS 2 NIKKY NIKKY W/ALLERGE LUCY EXTRACTS BRNCDILAT 69472 KALIASH KAILASH RSPSE 2 NIKKY NIKKY SPMTRY PRE&POST- BRNCDILAT ADMN IM ADM 88263 LEANDRO CHAVEZON PRQ ID 2 [facility] SUB[facility]IM C[facility] CENTER NJXS 1 VACCINE MCV4 14179 LEANDRO REEVES MENACWY 2 [facility] CON[facility] VACC CENTER CENTER GRPS ACYW-135 IM USE URINE 90651 LEANDRO REEVES 2 [facility] TEST INC INC VISUAL COLOR CMPRSN METHS PRESSURIZ 42189 LEANDRO REEVES ED/NONPRE 2 [facility] SSURIZED INC INC INHALATIO N TREATMENT RADIOLOGI 82127 LEANDRO REEVES C EXAM 2 [facility] CHEST 2 INC INC VIEWS FRONTAL&L ATERAL FRAMES V2020 [place] [facility] FELIX YULIYA PURCHASES 2 FITTING 35489 [place] [facility] [place] [facility] SPECTACLE 2 S XCPT APHAKIA MONOFOCAL SPHERE V2100 [place] YUL[facility]YA [place] YUL[facility]YA SINGLE 2 VISION [facility]AN[facility] +/- 4.00 PER LENS DETERMINA 99652 [place] [facility] [place] [facility] TION 2 [facility]RACTIV E STATE OPHTH 19483 [facility] DWYER [place] [facility] MEDICAL 2 XM&EVAL COMPRHNSV ESTAB PT 1/> COMPREHEN 14662 LEANDRO REEVES SIVE 1 [facility] METABOLIC INC INC PANEL IMMUNOASS 53448 LEANDRO LUIS AY NFCT 1 [facility] AGT ANTB INC QUAL/SEMI COMFORT 1 STEP ANTIBODY 04444 LEANDRO REEVES IRASEMA-B 1 [facility] ARR EB INC INC VIRUS VIRAL CAPSID VCA BLOOD 92284 LEANDRO REEVES COUNT 1 [facility] COMPLETE INC INC AUTO&AUTO DIFRNTL WBC IM ADM 10353 LEANDRO REEVES PRQ ID 1 [facility] SUB[facility] CENTER CENTER NJXS 1 [place] [address] LEANDRO REEVES STREPTOCO 1 [facility] CCUS INC INC GROUP A SUSCEPTIB 38959 LEANDRO REEVES LTY STDY 1 [facility] ANTIMICRB INC INC IAL MICRO/AGA R DILUTJ CUL BACT 12623 LEANDRO REEVES AEROBIC 1 [facility] ADDL INC INC METHS DEFINITIV E EA ISOL CUL BACT 42632 LEANDRO REEVES XCPT 1 [facility] URINE INC INC BLOOD/STO OL AEROBIC ISOL RADIOLOGI 91752 LEANDRO REEVES C 1 [facility] EXAMINATI INC INC ON KNEE 3 VIEWS RADEX 92110 LEANDRO REEVES ANKLE 1 [facility] COMPLETE INC [place] [address] [place] [address] LEANDRO REEVES HEAD/BRAI 1 [facility] N W/O INC INC CONTRAST MATERIAL URINE 53153 LEANDRO REEVES 1 [facility] TEST INC INC VISUAL COLOR CMPRSN METHS BASIC 78305 LEANDRO REEVES METABOLIC 1 [facility] PANEL INC INC CALCIUM TOTAL BLOOD 33735 LEANDRO REEVES COUNT 1 [facility] COMPLETE INC INC AUTO&AUTO DIFRNTL WBC URNLS DIP 49075 LEANDRO REEVES 1 [facility] STICK/TAB INC INC LET REAGENT AUTO MICROSCOP Y 3D 44679 LEANDRO REEVES RENDERING 1 [facility] W/INTERP INC INC & POSTPROCE SS SUPERVISI ON OPHTH 97538 ZAKI SHEFFIELD MEDICAL 1 XM&EVAL COMPRE NEW PT 1/> VST FITTING 08875 ZAKI SHEFFIELD SPECTACLE 1 S XCPT APHAKIA MONOFOCAL SPHERE V2100 ZAKI SHEFFIELD SINGLE 1 VISION PLANO +/- 4.00 PER LENS DETERMINA 04425 ZAKI SHEFFIELD TION 1 REFRACTIV E STATE FRAMES V2020 ZAKI SHEFFIELD PURCHASES 1 RADEX 30709 LEANDRO CHAVEZON ANKLE 0 [facility] COMPLETE INC INC MINIMUM 3 VIEWS CLOSURE 8659 LEANDRO REEVES SKIN&SUBC 0 [facility] UTANEOUS INC INC TISSUE OTHER SITES SIMPLE 96958 KRIS NEGRETEMAN REPAIR 0 EMERGENCY III, SCALP/NEC SERVICES JONATAN K/AX/RAJIV T/TRUNK ASSOCIATE 2.5CM/< S CULTURE 41845 LEANDROMURPHY REEVES BACTERIAL 0 [facility] INC INC QUANTTATI VE COLONY COUNT URINE URNLS DIP 11536 LEANDRO REEVES 0 [facility] STICK/TAB INC INC LET REAGENT AUTO MICROSCOP Y URNLS DIP 86628 LEANDRO LEANDRO 9 [facility] STICK/TAB INC INC LET REAGENT AUTO MICROSCOP Y CULTURE 90830 LEANDRO REEVES BCT 9 [facility] ISOL&PRSM INC INC PTV ID ISOLATE EA URINE SUSCEPTIB 40131 LEANDROMURPHY REEVES LTY STDY 9 [facility] ANTIMICRB INC INC IAL MICRO/AGA R DILUTJ CULTURE 34994 LEANDRO REEVES BACTERIAL 9 [facility] INC INC QUANTTATI VE COLONY COUNT URINE BLOOD 12778 LEANDRO REEVES COUNT 9 [facility] COMPLETE INC INC AUTO&AUTO DIFRNTL WBC URNLS DIP 64965 LEANDRO CHAVEZON 9 [facility] STICK/TAB INC INC LET REAGENT AUTO MICROSCOP Y CORTISOL 50963 LEANDRO REEVES TOTAL 9 [facility] INC INC COMPREHEN 18203 LEANDRO REEVES SIVE 9 [facility] [address] LEANDRO REEVES THYROID 9 [facility] STIMULATI INC INC NG HORMONE TSH US PELVIC 42241 LEANDRO REEVES 8 [facility] NONOBSTET INC INC NIHARIKA REAL-TIME IMAGE COMPLETE BLOOD 82044 MANNIE TYSON, COUNT 8 MARBELLA Vazquez HEMOGLOBI N BLOOD 47479 LEANDRO REEVES COUNT 8 [facility] COMPLETE INC INC AUTO&AUTO DIFRNTL WBC CT PELVIS 38032 LEANDRO REEVES W/O 8 [facility] CONTRAST INC INC MATERIAL CULTURE 85129 LEANDRO REEVES BACTERIAL 8 [facility] INC INC QUANTTATI VE COLONY COUNT URINE BASIC 38100 LEANDRO LEANDRO METABOLIC 8 [facility] PANEL INC INC CALCIUM TOTAL URNLS DIP 74017 LEANDRO REEVES 8 [facility] STICK/TAB INC [place] [address] IOWA SARA, ABDOMEN 8 MEDICAL YUMI W/O IMAGING CONTRAST ASSOCIATE MATERIAL S URINE 53065 LEANDRO REEVES 8 [facility] TEST INC INC VISUAL COLOR CMPRSN METHS 3D 08667 LEANDRO REEVES RENDERING 8 [facility] INC INC W/INTERP& POSTPROC DIFF WORK STATION CLOSURE 8659 LEANDRO REEVES SKIN&SUBC 8 [facility] UTANEOUS INC INC TISSUE OTHER SITES SPHERE V2100 FELIX [place], SINGLE 8 AMBER A AMBER A VISION PLANO +/- 4.00 PER LENS FRAMES V2020 FELIX [place], PURCHASES 8 AMBER A AMBER A OPHTH 67774 FELIX [place], MEDICAL 8 AMBER A AMBER A XM&EVAL COMPRE NEW PT 1/> [place] [address] LEANDRO REEVES ABDOMINAL 8 [facility] REAL INC INC TIME W/IMAGE LIMITED URNLS DIP 97247 KEV ANGULO 8 [facility] STICK/TAB [facility] LET REAGENT AUTO MICROSCOP Y BLOOD 75578 KEV ANGULO COUNT 8 [facility] AUTO&AUTO DIFRNTL WBC CULTURE 09459 KEV ANGULO BACTERIAL 8 [facility] QUANTTATI VE COLONY COUNT URINE COMPREHEN 48227 KEV ANGULO SIVE 8 [facility] PANEL COLLECTIO 30858 KEV ANGULO N VENOUS 8 [facility] VENIPUNCT URE FITTING 74442 FELIX, FELIX, SPECTBHUMI 8 AMBER A AMBER A S XCPT APHAKIA MONOFOCAL Encounters Encounter Start End Date Code Location Performer Type Date OFFICE 67466 [facility] OUTPAT[facility]EN 7 7 T VISIT 10 MINUTES EMERGENCY 09382 [facility]DR[facility] 7 7 [facility] DEPARTMEN INC T VISIT MODERATE SEVERITY [facility]OSP[facility] - 7 7 [facility] OUTPATIEN INC T EMERGENCY 76877 [facility] DEPT 7 7 PHYSICIAN VISIT S, PLLC HIGH SEVERITY& THREAT FUNJ OFFICE 24750 [facility] 6 [facility] T VISIT INTERNAL 10 MED MINUTES [facility]OSP[facility] - 6 6 [facility] T [facility] - 6 6 [facility] OUTPATIEN INC T OFFICE 96137 [facility] MIS OUTPATIEN 6 6 [facility] T VISIT INTERNAL 15 MED MINUTES HOSPITAL LE[facility] - 6 6 [facility] INPATIENT INC OFFICE 17677 [facility]L OUTPATIEN 6 6 PHYSICIAN CORI T VISIT S GROUP 15 MINUTES HOSPITAL [facility] - 6 6 [facility] OUTPATIEN INC T OFFICE 86913 [place] [facility] OUTPATIEN 6 6 MEDICAL NAN T VISIT SERV 25 FOUNDATIO MINUTES N OFFICE 00814 [facility] OUTPATI[facility] 6 6 Y T VISIT 5 [facility] UNIVERSIT - 6 6 Y OUTPATIEN HOSPITAL T OFFICE 29155 [facility] VANEGAS OUTPATIEN 6 6 PHYSICIAN VARUN T VISIT S GROUP 15 MINUTES OFFICE 16622 [facility] VANEGAS OUTPATIEN 6 6 PHYSICIAN VARUN T VISIT S GROUP 15 MINUTES HOSPITAL LE[facility]O - 6 6 [facility] T HOSPITAL LE[facility] - 6 6 [facility] OUTPATIEN INC T HOSPITAL LEANDRO - 6 6 [facility] OUTPATIEN INC T OFFICE 20956 [facility] VANEGAS OUTPATIEN 6 6 PHYSICIAN VARUN T VISIT S GROUP 15 MINUTES OFFICE 58419 [facility] VANEGAS OUTPATIEN 6 6 PHYSICIAN VARUN T VISIT S GROUP 15 MINUTES OFFICE 96875 [facility] VANEGAS OUTPATIEN 6 6 PHYSICIAN VARUN T VISIT S GROUP 15 MINUTES HOSPITAL LEANDRO - 6 6 [facility] OUTPATIEN [facility] T OFFICE 13449 [facility] VANEGAS OUTPATIEN 6 6 PHYSICIAN VARUN T VISIT S GROUP 15 MINUTES HOSPITAL LEANDRO - 6 6 [facility] OUTPATIEN [facility] T OFFICE 08881 [facility] VANEGAS OUTPATIEN 6 6 PHYSICIAN VARUN T VISIT S GROUP 15 MINUTES OFFICE 41229 [facility] VANEGAS OUTPATIEN 6 6 PHYSICIAN VARUN T VISIT S GROUP 15 MINUTES HOSPITAL LEANDRO - 6 6 [facility] OUTPATIEN INC T OFFICE 09183 [facility] LUÍSSON OUTPATIEN 6 6 [facility] AV[facility] T VISIT INTERNAL 15 MED MINUTES OFFICE 04690 [facility] VANEGAS OUTPATIEN 6 6 PHYSICIAN VARUN T VISIT S GROUP 15 MINUTES EMERGENCY 98904 DYLAN LEONE 6 6 PHYSICIAN TONY DEPARTMEN S, [facility] T VISIT HIGH/URGE NT SEVERITY HOSPITAL LEANDRO - 6 6 [facility] OUTPATIEN INC T EMERGENCY 47176 LEANDRO 6 6 [facility] DEPARTMEN INC T VISIT LOW/MODER SEVERITY EMERGENCY 47674 [facility] 6 6 [facility] DEPARTMEN INC T VISIT LOW/MODER SEVERITY EMERGENCY 00278 DYLAN LEONE DEPT 6 6 PHYSICIAN TONY VISIT [facility] HIGH SEVERITY& THREAT [facility] LEANDRO - 6 6 [facility] OUTPATIEN INC T OFFICE 72187 [facility] OUTPATIEN 6 6 [facility] T VISIT INTERNAL 15 MED MINUTES HOSPITAL LE[facility]DR[facility] - 6 6 [facility] OUTPATIEN INC T OFFICE 18544 [facility] OUTPATIEN 6 6 PHYSICIAN VARUN T VISIT S GROUP 15 MINUTES HOSPITAL LE[facility] - 5 5 [facility] OUTPATIEN INC T OFFICE 70538 [facility] ERIKA OUTPATIEN 5 5 [facility] T VISIT INTERNAL 15 MED MINUTES HOSPITAL [facility] - 5 5 [facility] OUTPATIEN INC T [facility] - 5 5 [facility] OUTPATIEN INC T [facility]PITAL [facility] - 5 5 [facility] OUTPATIEN INC T EMERGENCY 74690 [facility] 5 5 [facility] DEPARTMEN INC T VISIT LOW/MODER SEVERITY EMERGENCY 27819 DYLAN JON DEPT 5 5 PHYSICIAN U MALAIKA VISIT [facility] HIGH SEVERITY& THREAT [facility] LEANDRO - 5 5 [facility] OUTPATIEN INC T [facility]OSPITAL LE[facility] - 5 5 [facility] OUTPATIEN INC T OFFICE 47243 [facility] 5 5 [facility] T VISIT [facility] DEPT [facility] DEPT 10 [facility] LEANDRO - 5 5 [facility] OUTPATIEN INC T EMERGENCY 72135 DYLAN JON 5 5 PHYSICIAN U MALAIKA DEPARTMEN [facility], PLL[facility] T VISIT MODERATE SEVERITY EMERGENCY 15420 [facility]DRO 5 5 [facility] DEPARTMEN INC T VISIT LIMITED/M INOR PROB EMERGENCY 92438 [facility] DEPT 4 4 NNAMDI VISIT EMERGENCY HIGH PHYS SEVERITY& THREAT FUNCJ EMERGENCY 13359 CHAD CHAD 4 4 TONY TONY DEPARTMEN T VISIT MODERATE SEVERITY HOSPITAL [facility] - 4 4 [facility] OUTPATIEN INC T EMERGENCY 41555 [facility]DR[facility] 4 4 [facility] DEPARTMEN INC T VISIT LOW/MODER SEVERITY [facility]OSPITAL [facility] - 4 4 [facility] INPATIENT INC OFFICE 92068 [facility] VANEGAS OUTPATIEN 4 4 VARUN VARUN T VISIT 15 MINUTES OFFICE 64404 [facility]AS OUTPATIEN 4 4 VARUN VARUN T VISIT 15 MINUTES OFFICE 56268 [facility] VANEGAS OUTPATIEN 4 4 VARUN VARUN T VISIT 15 MINUTES OFFICE 90275 [facility]GAS OUTPATIEN 4 4 VARUN VARUN T VISIT 15 MINUTES OFFICE 29503 [facility] VANEGAS OUTPATIEN 4 4 VARUN VARUN T VISIT 15 MINUTES OFFICE 54175 [facility]AS OUTPATIEN 4 4 VARUN VARUN T VISIT 15 MINUTES OFFICE 10421 GUILHERME SNOWE OUTPATIEN 4 4 VARUN VARUN T VISIT 15 MINUTES OFFICE 97083 [facility]ANEGAS OUTPATIEN 4 4 VARUN VARUN T VISIT 5 MINUTES OFFICE 15638 [facility] VANEGAS OUTPATIEN 4 4 VAURN VARUN T VISIT 15 MINUTES OFFICE 76625 [facility] VANEGAS OUTPATIEN 4 4 VARUN VARUN T VISIT 15 MINUTES OFFICE 37508 [facility] HARPEL OUTPATIEN 4 4 CORI CORI T VISIT 15 MINUTES OFFICE 69169 [facility] VANEGAS OUTPATIEN 3 3 VARUN VARUN T VISIT 15 MINUTES OFFICE 92685 MANNIE TYSON OUTPATIEN 3 3 MARBELLA PERSAUD T VISIT 15 MINUTES Emergency IKE Rodriguez MD (ER) 3 20:22 3 23:13 [facility] LEANDRO - 3 3 [facility] OUTPATIEN INC T EMERGENCY 19689 ZIA CHR ZIA CHR 3 3 DEPARTMEN T VISIT MODERATE SEVERITY EMERGENCY 77869 LEANDRO 3 3 [facility] DEPARTMEN INC T VISIT LOW/MODER SEVERITY OFFICE 54925 [facility]AS OUTPATIEN 3 3 VARUN VARUN T VISIT 15 MINUTES OFFICE 50188 [facility] OUTPATIEN 3 3 VARUN VARUN T VISIT 15 MINUTES Emergency IKE Dugan (ER) 3 15:18 3 17:15 [facility] Jonatan E. EMERGENCY 14976 AMBER DUGAN 3 3 III EDWIN III [facility] DEPARTMEN T VISIT HIGH/URGE NT SEVERITY EMERGENCY 98552 LEANDRO 3 3 [facility] DEPARTMEN INC T VISIT LOW/MODER SEVERITY [facility]OSPITAL [facility] - 3 3 [facility] OUTPATIEN INC T OFFICE 62142 GU[facility]HERME VANEGAS OUTPATIEN 3 3 VARUN VARUN T VISIT 15 MINUTES Emergency IKE Dugan (ER) 3 11:11 3 13:40 [facility] Jonatan E. EMERGENCY 66627 LEANDRO AGUDELOT 3 3 [facility] VISIT INC HIGH SEVERITY& THREAT FUNCJ EMERGENCY 02336 AMBER DUGAN 3 3 III EDWIN III EDWIN DEPARTMEN T VISIT HIGH/URGE NT SEVERITY HOSPITAL LEANDRO - 3 3 [facility] T OFFICE 19565 GUILHERME VANEGAS OUTPATIEN 3 3 VARUN VARUN T VISIT 15 MINUTES Emergency IKE Leone MD (ER) 3 20:12 3 21:26 [facility] EMERGENCY 59429 CHAD LEONE 3 3 [facility] TONY DEPARTMEN T VISIT HIGH/URGE NT SEVERITY EMERGENCY 68039 LEANDRO 3 3 [facility] DEPARTMEN INC T VISIT LOW/MODER SEVERITY [facility] - 3 3 [facility] OUT[facility] T Emergency IKE Leone MD (ER) 3 21:32 3 22:59 [facility] EMERGENCY 26067 CHAD LEONE 3 3 [facility] T[facility]Y DEPARTMEN T VISIT HIGH/URGE NT SEVERITY HOSPITAL [facility] - 3 3 [facility] T EMERGENCY 72795 [facility] 3 3 [facility] DEPARTMEN INC T VISIT MODERATE SEVERITY OFFICE 03011 GUILHERME VANEGAS OUTPATIEN 3 3 VARUN VARUN T NEW 45 MINUTES OFFICE 85734 [facility] REEVES OUTPATIEN 3 [facility] 15 MINUTES OFFICE 98350 AKILASH KAILASH OUTPATIEN 2 2 NIKKY NIKKY T NEW 45 MINUTES OFFICE 32280 ERIKA JAMES OUTPATIEN 2 2 MICHAEL RODRIGUEZ T VISIT 15 MINUTES OFFICE 97260 SHALINI LOYA OUTPATIEN 2 2 EVE PRADO T VISIT 15 MINUTES [facility] - 2 2 [facility] T EMERGENCY 89351 KRIS PEDROELVIN NELSON 2 2 EMERGENCY DEPARTMEN SERVICES T VISIT HIGH/URGE NT SEVERITY EMERGENCY 43797 [facility] 2 2 [facility] DEPART[facility] INC T VISIT MODERATE SEVERITY OFFICE 06780 SHALINI LOYA OUTPATIEN 2 2 EVE PRADO T VISIT 15 MINUTES OFFICE 40835 ERIKA ERIKA OUTPATIEN 2 2 MICHAEL RODRIGUEZ T VISIT 15 MINUTES OFFICE 83042 ERIKA ERKIA OUTPATIEN 1 1 MICHAEL RODRIGUEZ T VISIT 10 MINUTES [facility] 1 [facility] - [facility] 1 [facility] T OFFICE 26563 ERIKA ERIKA OUTPATIEN 1 1 MICHAEL RODRIGUEZ T VISIT 15 MINUTES OFFICE 68510 SHALINI LOYA OUTPATIEN 1 1 EVE PRADO T VISIT 15 MINUTES [facility] - 1 1 [facility] T EMERGENCY 98139 [facility] 1 1 [facility] DEPARTMEN INC T VISIT LOW/MODER SEVERITY EMERGENCY 10137 KRIS DUGAN 1 1 EMERGENCY III [facility] SERVICES T VISIT HIGH/URGE NT SEVERITY OFFICE 37413 [place] ERIKA OUTPATIEN 1 1 [facility] MICHAEL T VISIT INTERNAL 10 MEDI MINUTES OFFICE 17000 [facility] ERIKA OUTPATIEN 1 1 [facility] MICHAEL T VISIT INTERNAL 15 MEDI MINUTES OFFICE 88529 [facility] BESSON OUTPATIEN 1 1 [facility] AVINASH T VISIT INTERNAL 15 MED MINUTES EMERGENCY 93946 LEANDRO 1 1 [facility] DEPARTMEN INC T VISIT MODERATE SEVERITY HOSPITAL [facility] - 1 1 [facility] OUTPATIEN INC T EMERGENCY 02639 KRIS LEONE DEPT 1 1 EMERGENCY TONY VISIT SERVICES HIGH SEVERITY& THREAT FUNCJ EMERGENCY 02248 [facility] 1 1 [facility] DEPARTMEN INC T VISIT LOW/MODER SEVERITY [facility] - 1 1 [facility] T EMERGENCY 58059 KRIS ZAYAS LIBERTY 1 1 EMERGENCY DEPARTMEN SERVICES T VISIT MODERATE SEVERITY OFFICE 66757 [place] ERIKA OUTPATIEN 0 0 ALBERTO RODRIGUEZ T VISIT INTERNAL 15 MEDI MINUTES EMERGENCY 63620 KRIS OTOOLE BAB 0 0 EMERGENCY DEPARTMEN SERVICES T VISIT MODERATE SEVERITY EMERGENCY 83142 [facility] 0 0 [facility] DEPART[facility] INC T VISIT LOW/MODER SEVERITY [facility] - 0 0 [facility] T OFFICE 73541 [place] ERIKA OUTPATIEN 0 0 ALBERTO RODRIGUEZ T VISIT INTERNAL 10 MEDI MINUTES EMERGENCY 81855 [facility] 0 0 [facility] DEPARTMEN INC T VISIT MODERATE SEVERITY EMERGENCY 83940 KRIS SANTIAGOCOREY 0 0 EMERGENCY III, DEPARTMEN SERVICES JONATAN T VISIT HIGH/URGE ASSOCIATE NT S SEVERITY [facility] - 0 0 [facility] T EMERGENCY 38713 [facility] 0 0 [facility] DE[facility] INC T VISIT LOW/MODER SEVERITY [facility] - 0 0 [facility] T OFFICE 07052 [facility] BESNELLY, OUTPATIEN 0 0 ALBERTO ADKINS A T VISIT INTERNAL 15 MED MINUTES OFFICE 05860 [facility] MCKEMIE OUTPATIEN 0 0 ALBERTO RENDON EDWIN T VISIT INTERNAL 15 MED MINUTES [facility] - 0 0 [facility] T OFFICE 19742 [facility] SHALINI OUTPATIEN 0 0 ALBERTO PRADO T VISIT INTERNAL 15 MEDI MINUTES OFFICE 09243 [facility] MCKEMIE OUTPATIEN 9 9 ALBERTO , T VISIT INTERNAL JONATAN F 15 MED MINUTES [facility] - 9 9 [facility] T EMERGENCY 55602 KRIS SOLOMON, 9 9 EMERGENCY [facility] T VISIT MODERATE ASSOCIATE SEVERITY S EMERGENCY 96156 [facility] 9 9 [facility] DEPARTMEN INC T VISIT LOW/MODER SEVERITY OFFICE 95730 [facility] LUÍSNELLY OUTPATIEN 9 9 [facility] JED A T VISIT INTERNAL 15 MED MINUTES HOSPITAL [facility] - 9 9 [facility] [facility] T OFFICE [id number] [place] [facility] OUTPATIEN 9 9 [facility] THUN[facility] JED A T VISIT INTERNAL 15 MED MINUTES HOSPITAL [facility] - 9 9 [facility] INC T OFFICE 05869 [place] LU[facility]SNELLY OUTPATIEN 9 9 [facility] THUN[facility] JED A T VISIT INTERNAL 15 MED MINUTES OFFICE 28785 [place] TYRA OUTPATIEN 9 9 [facility] THUNDER KATHY T VISIT INTERNAL 10 MED MINUTES OFFICE 63099 ROBERTO WHITMORE 8 8 MARBELLA Vazquez T VISIT 15 MINUTES PERIODIC [id number] [place] MCKEMIE PREVENTIV 8 8 [facility], E MED EST INTERNAL [facility] PATIENT MED [place] [facility] LEANDRO - 8 8 [facility] OUTPATIEN INC T OFFICE [id number] MANNIE TYSON, CONSULTAT 8 8 MARBELLA Vazquez ION NEW/ESTAB PATIENT 80 MIN [facility]OSPITAL [facility] - 8 8 [facility] T EMERGENCY 92271 [facility] 8 8 [facility] DEPARTMEN INC T VISIT MODERATE SEVERITY EMERGENCY 65186 KAYLAN KIMBROUGH 8 8 , JEANETTE REID DEPARTMEN T VISIT HIGH/URGE NT SEVERITY [facility]OSP[facility] - 8 8 [facility] T EMERGENCY 15368 [facility] 8 8 [facility] DEPARTMEN INC T VISIT LOW/MODER SEVERITY OFFICE 19595 T[facility]Y FERRELL [facility] 8 8 [facility] THUNDER JED [place] T VISIT INTERNAL 15 MED MINUTES HOSPITAL [facility] - 8 8 [facility] [facility] 8 8 [facility] T EMERGENCY 12[address] [facility], 8 8 NNAMDI LEON Nash [facility] EMERGENCY T VISIT [facility] INC MODERATE SEVERITY EMERGENCY 16146 [place] 8 8 [facility] T VISIT LOW/MODER SEVERITY
--- OUTSIDE RECORDS SUMMARY | 2016-09-07 16:35 | External Medical Summary Rpt ---
Author Author , Organization [employer] Address Unknown Phone Unavailable Care Team Providers Care Structural Architect Name Role Phone TAYLOR AYAKA, TAYLOR AYAKA Unavailable Unavailable BESSON, BESSON Unavailable Unavailable BESSON AVINASH, BESSON Unavailable Unavailable AVINASH BESSON JED A, Unavailable Unavailable BESSON, JED A VELEZ ALL, VELEZ ALL Unavailable Unavailable [facility] Unavailable Unavailable [facility], [facility] LEON WALSH, Unavailable Unavailable LEON WALSH [...] MANNIE R, Unavailable Unavailable HARPEL MANNIE R [facility] Unavailable Unavailable [facility] Unavailable Unavailable [place], [facility] Unavailable Unavailable INC, [facility] Unavailable Unavailable HOSPITAL P, [facility] P KATHY MARY HARVEY, Unavailable Unavailable KATHY [facility], Unavailable Unavailable [facility] OWUSU NAN, OWUSU Unavailable Unavailable NAN WASHINGTON YULIYA, WASHINGTON YULIYA Unavailable Unavailable WASHINGTON YULIYA, WASHINGTON YULIYA Unavailable Unavailable WASHINGTON, AMBER A, Unavailable Unavailable WASHINGTON, AMBER A [facility], Unavailable Unavailable [facility] SHALINI NAN, SHALINI Unavailable Unavailable NAN SHALINI NAN, SHALINI Unavailable Unavailable NAN MICHAEL RICHARD, MICHAEL Unavailable Unavailable RICHARD [facility] Unavailable Unavailable IM[facility], [facility] Unavailable [facility], [facility] JAMAL JR DWI, JAMAL Unavailable Unavailable JR DWI [facility] Un[facility] Un[facility] Unavailable Un[facility], [facility] RASHMI JANELLE, RASHMI JANELLE Unavailable Unavailable SALVADOR, SALVADOR Unavailable Unavailable Kenia Leone MD, Unavailable Unavailable Kenia Leone MD [facility] Unavailable Unavailable SERVICES, [facility] KAILASH NIKKY, Unavailable Unavailable KAILASH [...] [facility]ARM #[id number] [facility] Unavailable Unavailable [id number] # [id number], [facility] [id number] # [id number] SCHULSTAD, JEANETTE, Unavailable Unavailable SCHULSTAD, JEANETTE SCIFRES, SCIFRES Unavailable Unavailable SCIFRES, SCIFRES Unavailable Unavailable SOKAN BAB, SOKAN BAB Unavailable Unavailable SOTINGEANU MALAIKA, Unavailable Unavailable SOTINGEANU MALAIKA [facility], Unavailable Unavailable [facility] Unavailable Unavailable DEPT [facility] DE[facility] Unavailable Unavailable DEPT [facility], [facility] DE[facility] WEHRCOREY III EDWIN, Unavailable Unavailable WELINDSEY III EDWIN DUGAN III EDWIN, Unavailable Unavailable WEHRCOREY III EDWIN DUGAN III, JONATAN, Unavailable Unavailable JONATAN DUGAN III, DENISE CHASE Unavailable Unavailable Jonatan Dugan Unavailable Unavailable III Jonatan CABRERA III, MD Purpose Continuity of Care Document - 04-22-2007 through 2016 Problems Code Diagnosis DOS Provider Status B309 VIRAL 08-06-2016 SCIFRES CONJUNCTIVI TIS UNSPECIFIED I10 ESSENTIAL 04-30-2016 [facility] P N K219 GASTRO-ESOP 04-30-2016 [facility] P WITHOUT ESOPHAGITIS R079 CHEST PAIN 04-30-2016 [place] [facility] [id number] ADVERS EFF 02-28-2016 [facility] UNS RX MEDS VALLEY BIO INTERNAL SUBSTANCES MED INIT ENC R002 PALPITATION 12-12-2015 [facility] S SERV Finding Something 3 E6601 MORBID 12-04-2015 [facility] OBESITY DUE INC TO EXCESS CALORIES Z0000 ENCOUNTER 12-04-2015 [facility] GEN ADULT [facility] MED EXAM INC W/O ABNORMAL FIND O1092 UNS 10-07-2015 [facility] PRE-EXISTIN [facility] G INC HYPERTENSIO N COMP CHILDBIRTH [id number] L & D COMP 10-07-2015 [facility] CORD AROUND [facility] NECK W/O INC COMPRS NA/UNS O80 ENCOUNTER 10-07-2015 [facility] FULL-TERM GROUP UNCOMPLICAT ED DELIVERY F70740 OBESITY 10-07-2015 [facility] COMPLICATIN [facility] G INC THIRD TRIMESTER Z370 SINGLE LIVE 10-07-2015 [facility] Z3A40 40 WEEKS 10-07-2015 [facility] GESTATION [facility] OF INC Z6844 BODY MASS 10-07-2015 [facility] INDEX BMI [facility] 60.0-69.9 INC ADULT Z3483 ENC 10-04-2015 [facility] OTH NORMAL GROUP 3 TRIMESTER O471 FALSE LABOR 10-03-2015 [facility] AT/AFTER PHYS[facility]IANS 37 GROUP COMPLETED WEEKS GEST Z3A39 39 WEEKS 10-03-2015 [facility]STATION [facility] OF INC F17490 OTHER SPEC 10-02-2015 [facility] RELATED COND 3RD TRIMESTER O9989 OTH DZ & 10-02-2015 IN MEDICAL COND COMP SERV PREG [facility] CHILDBIRTH PUERPERIUM R51 HEADACHE 10-02-2015 IN MEDICAL SERV FOUNDATION Z331 10-02-2015 IN MEDICAL STATE SERV INCIDENTAL FOUNDATION Z3480 ENC 09-26-2015 [facility] OTH NORMAL GROUP PREG UNS TRIMESTER O4703 FALSE LABOR 09-13-2015 [facility] BEFORE 37 PHYSICIANS CMPLETE GROUP WEEKS GEST 3RD TRI Z3A36 36 WEEKS 09-13-2015 [facility]STATION [facility] OF INC [id number] MATERNAL 09-11-2015 [facility] EXCESS [facility]YS[facility]ANS GROUP GROWTH 3RD TRI NA/UNS R220 LOCALIZED 09-05-2015 [facility] SWELLING [facility] MASS AND INC LUMP HEAD Z3A35 35 WEEKS 09-05-2015 [facility] GESTATION [facility] OF INC F29390 ABNORMAL 07-12-2015 [facility] GLUCOSE PH[facility]ANS COMPLICATIN GROUP G S97270 OTHER SPEC 07-07-2015 [facility] RELATED INC COND UNS TRIMESTER Z3A00 WEEKS OF 07-07-2015 [facility] GESTATION [facility] OF INC NOT SPECIFIED D16199 OTHER SPEC 06-17-2015 [facility] RELATED INC COND 2ND TRIMESTER O6003 06-17-2015 [facility] WITHOUT GROUP DELIVERY THIRD TRIMESTER R1030 LOWER 06-17-2015 [facility] ABDOMINAL [facility] PAIN INC UNSPECIFIED Z3A24 24 WEEKS 06-17-2015 [facility] GESTATION [facility] OF INC Z3492 ENC 05-28-2015 [place] [facility]ICAL NORMAL IMAGING ASS UNS 2 TRIMESTER Z36 ENCOUNTER 05-28-2015 [facility] FOR [facility] INC SCREENING OF MOTHER Z3A21 21 WEEKS 05-28-2015 [facility] MEDICAL OF IMAGING ASS J029 ACUTE 05-24-2015 [facility] PHARYNGITIS VALLEY INTERNAL UNSPECIFIED MED A41600 UNSPECIFIED 05-10-2015 [facility] ASTHMA [facility] UNCOMPLICAT INC ED N3000 ACUTE 05-10-2015 [facility] CYSTITIS [facility]ANS, WITHOUT PLLC HEMATURIA N390 URINARY 05-10-2015 [facility] TRACT PHYSICIANS, INFECTION PLLC SITE NOT SPECIFIED Z3A20 20 WEEKS 05-10-2015 [facility]ATION [facility] OF INC P53709 PAIN IN 05-08-2015 [place] RIGHT KNEE [facility] E06581 PAIN IN 05-08-2015 [place] RIGHT ANKLE [facility]ICAL IM[facility]ING ASS V4630QC SPRAIN 05-08-2015 [facility] UNSPECIFIED PHYSICIANS, SITE RT PLLC KNEE INITIAL ENCNTR A3859GY UNS INJURY 05-08-2015 [place] RT LOWER MEDICAL LEG INITIAL IMAGING ASS ENCOUNTER T10167U SPRAIN 05-08-2015 [facility] ROSE PHYSICIANS, LIGAMENT PLLC ROGHT ANKLE INITIAL ENC D75994K UNSPECIFIED 05-08-2015 [place] INJURY MEDICAL RIGHT ANKLE IMAGING ASS INITIAL ENCOUNTER Z3A19 19 WEEKS 05-08-2015 [facility] GESTATION [facility] OF INC L739 FOLLICULAR 04-26-2015 [facility] DISORDER [place] UNSPECIFIED INTERNAL MED Q49879 UTERINE 02-28-2015 [facility] SIZE-DATE PHYSICIANS DISCREPANCY GROUP FIRST TRIMESTER J351 HYPERTROPHY 01-22-2015 [facility] OF TONSILS [place] INTERNAL MED L309 DERMATITIS 01-22-2015 [facility] UNSPECIFIED [place] INTERNAL MED R0600 DYSPNEA 01-22-2015 [facility] UNSPECIFIED [place] INTERNAL MED R0982 POSTNASAL 01-22-2015 [facility] DRIP [place] INTERNAL MED 632 MISSED 12-04-2014 [facility] 58310 INCOMPLETE 12-04-2014 [facility] SPONTANEOUS [facility] AB WITHOUT MENTION COMP 4019 UNSPECIFIED 12-03-2014 [facility] ESSENTIAL [facility] HYPERTENSIO INC N 58946 ASTHMA, 12-03-2014 [facility] UNSPECIFIED [facility] , INC UNSPECIFIED STATUS 75870 UNSPEC 12-03-2014 [place] [facility] E[facility]LY [facility] ANTEPARTUM 25382 OTHER 12-03-2014 [facility] SPECIFED PHYSICIANS, COMPLICATIO PLLC N ANTEPARTUM V221 SUPERVISION 11-13-2014 [facility] OF OTHER MEM [facility] NORMAL INC V2881 ENCOUNTER 11-13-2014 [place] FOR MEDICAL ANATOMIC IMAGING ASS SURVEY 31037 PAP SMER 11-08-2014 [facility] CERV W/LW LLC GRADE SQUAMOUS INTRAEPITH LES V745 SCREENING 11-08-2014 [facility] EXAMINATION LLC FOR VENEREAL DISEASE V016 CONTACT 10-19-2014 [facility] WITH OR DISTRICT EXPOSURE TO [facility] DEPT VENEREAL KORI DISEASES 0340 STREPTOCOCC 08-17-2014 [facility] GIL PHYSICIANS, THROAT PLLC 03495 OTHER CHEST 11-21-2013 [facility] PHYS 52858 PHLEBITIS&T 09-03-2013 [facility] HROMBOPHLEB [facility] SUP VEINS INC UPPER EXTREM 4519 PHLEBITIS&T 09-03-2013 CH[facility] TONY HROMBOPHLEB ITIS OF UNSPECIFIED SITE 650 NORMAL 07-21-2013 [facility] DELIVERY 06874 1-DEG 07-21-2013 [facility] [place] [address] FIRST-DEGRE 07-21-2013 [facility] E PERINEAL [facility] LACERATION INC WITH DELIVERY V270 OUTCOME OF 07-21-2013 [facility] DELIVERY [facility] SINGLE INC LIVEBORN V220 SUPERVISION 07-18-2013 [facility] BOND OF NORMAL FIRST 58676 EXCESS 06-14-2013 [facility] VARUN GROWTH AFFECT MGMT MOTH ANTPRTM 37868 POLYHYDRAMN 05-23-2013 [facility] VARUN IOS ANTEPARTUM COMPLICATIO N 06647 ABNORMAL 05-08-2013 [facility] VARUN MATERNAL GLUCOSE TOLERANCE ANTEPARTUM 96868 OTHER 03-31-2013 [facility] CORI THREATENED LABOR, ANTEPARTUM V283 ENCOUNTER 03-09-2013 [facility] BOND ROUTINE SCREEN MALFORMATIO N ULTRASONIC 599.0 599.0 URIN 03-05-2013 [place] TRACT [facility] INFECTION Hospital NOS 5990 URINARY 03-05-2013 [place] TRA[facility] INFECTION INC SITE NOT SPECIFIED 646.83 646.83 PREG 03-05-2013 [facility] NEC-ANTEPAR Hospital T 7881 DYSURIA 03-05-2013 [facility] CHR 401.9 401.9 02-02-2013 [place] HYPERTENSIO [facility] Hospital 493.90 493.90 02-02-2013 [place] ASTHMA, [facility] UNSPECIFIED Hospital 596.89 596.89 02-02-2013 [facility] DISORDERS OF BLADDER 20241 OTHER 02-02-2013 WEHRMAN III SPECIFIED EDWIN DISORDERS OF BLADDER 18411 UNSPEC PROB 02-02-2013 [facility] JANE W/AMNIOTIC CAVITY&MEMB ANTPRTM 785.1 785.1 02-02-2013 [place] PALPITATION [facility] 7851 PALPITATION 02-02-2013 [facility] S [facility] INC V15.05 V15.05 02-02-2013 [place] ALLERGY TO [facility] OTHER FOODS Hospital V1505 PERSONAL 02-02-2013 [facility] HISTORY OF [facility]OS[facility] ALLERGY TO INC OTHER FOODS V7231 ROUTINE 02-02-2013 WE[facility] III GYNECOLOGIC EDWIN AL EXAMINATION 413.9 413.9 01-23-2013 [place] ANGINA [facility] PECTORIS [facility] NEC/NOS 4139 OTHER AND 01-23-2013 [facility] UNSPECIFIED MEM HOS[facility] ANGINA INC PECTORIS 21249 UNSPECIFIED 01-23-2013 WE[facility] III VAGINITIS EDWIN AND VULVOVAGINI TIS 20197 OTH 01-23-2013 [facility] CONGENITAL/ JANE ACQ ABNORM CERV ANTPRTM COND/COMP 28702 ABDOMINAL 01-23-2013 WEHRMAN III PAIN, EDWIN UNSPECIFIED SITE V222 01-23-2013 [facility] STATE, JANE INCIDENTAL 648.93 648.93 OTH 01-17-2013 [facility] COND-ANTEPA [facility] RTUM 23061 OTH CURRENT 01-17-2013 [facility] CONDS MEM HOSP CLASSIFIABL INC E ELSW ANTPRTM 724.2 724.2 01-17-2013 [facility] LUMB[facility]O 01-17-2013 [facility] 07925 ABDOMINAL 01-17-2013 CH[facility] TONY PAIN OTHER SPECIFIED SITE 41531 SPOTTING 01-13-2013 [facility] VARUN COMP ANTEPARTUM COND/COMP 6268 OTH D/O 01-12-2013 [facility] TONY MENSTRUATIO N&OTH ABN BLEED FE GNT TRACT 640.03 640.03 01-12-2013 [facility] ART 88245 THREATENED 01-12-2013 [facility] , [facility] ANTEPARTUM INC 642.93 642.93 01-12-2013 [facility] NOS-ANTEPAR [facility] MIC 60000 UNSPECIFIED 01-12-2013 [facility] HYPERTENSIO INC N ANTEPARTUM V14.8 V14.8 01-12-2013 [place] HX-DRUG [facility] V148 PERSONAL 01-12-2013 [facility] HISTORY [facility] ALLERGY OTH INC SPEC MEDICINAL AGTS V15.01 V15.01 01-12-2013 [place] ALLERGY TO [facility] V15.02 V15.02 01-12-2013 [facility] ALLERGY TO [facility] MILK Hospital PRODUCTS V15.04 V15.04 01-12-2013 [place] ALLERGY TO [facility] SEAFOOD [facility] V1501 PERSONAL 01-12-2013 [facility] HISTORY OF [facility] ALLERGY TO INC PEANUTS V1502 PERSONAL 01-12-2013 [facility] ALLERGY TO INC MILK PRODUCTS V1504 PERSONAL 01-12-2013 [facility] ALLERGY TO INC SEAFOOD 25597 OBESITY, 12-21-2012 [facility] VARUN UNSPECIFIED V7242 12-21-2012 [facility] VARUN EXAMINATION OR TEST POSITIVE RESULT V2689 OTHER 12-05-2012 [facility] RODRÍGUEZ SPECIFIED [facility] MANAGEMENT 4770 ALLERGIC 07-30-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 RHINITIS NIKKY DUE TO POLLEN 4772 ALLERGIC 07-30-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 RHINITIS NIKKY DUE TO ANIMAL HAIR AND DANDER 4778 ALLERGIC 07-30-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 RHINITIS NIKKY DUE TO OTHER ALLERGEN 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 58045 EXTRINSIC 07-30-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 ASTHMA, NIKKY UNSPECIFIED V727 DIAGNOSTIC 07-30-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 SKIN AND NIKKY SENSITIZATI ON TESTS 9164 HIP THI 06-26-2011 E[facility]KA LEG&ANK MICHAEL INSECT BITE NONVENOMOUS W/O INF 74783 PAIN IN 05-11-2011 SHALINI PRADO JOINT, LOWER LEG V069 NEED PROPH 05-07-2011 [facility] RODRÍGUEZ VACCINATION HEALTH W/UNSPEC CENTER COMB VACCINE 4660 ACUTE 04-18-2011 [facility] BRONCHITIS [facility] INC 490 BRONCHITIS 04-18-2011 [facility] NOT EMERGENCY SPECIFIED SERVICES ACUTE OR CHRONIC 7862 COUGH 04-18-2011 [facility] JANE 462 ACUTE 04-13-2011 SHALINI PRADO PHARYNGITIS V720 EXAMINATION 04-13-2011 [place] YULIYA OF EYES AND VISION 3829 UNSPECIFIED 04-02-2011 E[facility]KA OTITIS MICHAEL MEDIA V259 UNSPECIFIED 02-25-2011 ERIKA MICHAEL CONTRACEPTI VE MANAGEMENT 50438 ACUTE 01-23-2011 SHALINI PRADO SEROUS OTITIS MEDIA 98979 PAIN IN 11-26-2010 [place] JOINT, MEDICAL ANKLE AND IMAGING ASS FOOT 8449 SPRAIN&STRA 11-26-2010 KR[facility] IN OF EMERGENCY UNSPECIFIED SERVICES SITE OF KNEE&LEG 43285 UNSPECIFIED 11-26-2010 [facility] SITE OF EMERGENCY ANKLE SERVICES SPRAIN AND STRAIN 4619 ACUTE 07-28-2010 [facility] SINUSITIS, VALLEY UNSPECIFIED INTERNAL MEDI 7820 DISTURBANCE 07-08-2010 [facility] OF SKIN VALLEY SENSATION INTERNAL MED 3449 UNSPECIFIED 07-05-2010 [facility] PARALYSIS EMERGENCY SERVICES 3671 MYOPIA 05-29-2010 HAINES GUA 42144 REGULAR 05-29-2010 [facility]INES GUA ASTIGMATISM 5206 DISTURBANCE [...] MED ACUT/CHRON 4720 CHRONIC 08-07-2009 [facility] RHINITIS [place] INTERNAL MED 6269 UNS D/O 07-12-2009 [facility] MENSTRUATIO [place] N&OTH ABN INTERNAL BLEED FE MEDI GNT TRACT 14403 UNSPECIFIED 01-01-2009 [facility] INFECTIVE [place] OTITIS INTERNAL EXTERNA MED 4659 ACUTE URIS 11-17-2008 [facility] OF [facility]OS[facility] UNSPECIFIED INC SITE V719 OBSERVATION 10-10-2008 [place] FOR VALLEY UNSPECIFIED INTERNAL SUSPECTED MED CONDITION 7840 HEADACHE 09-11-2008 [place] DOVER INTERNAL MED 06033 OTHER 08-29-2008 [facility] MALAISE AND [facility] FATIGUE INC 7835 POLYDIPSIA 08-29-2008 [facility] INC 460 ACUTE 06-04-2008 [facility] NASOPHARYNG [place] ITIS INTERNAL MED 2534 OTHER 12-09-2007 MANNIE Vazquez ANTERIOR MARBELLA CABRERA PITUITARY DISORDERS 6280 FEMALE 12-09-2007 MANNIE Vazquez INFERTILITY [facility] CABRERA ASSOCIATED WITH ANOVULATION 7850 UNSPECIFIED 10-14-2007 [facility] TACHYCARDIA INTERNAL MED V202 ROUTINE 10-14-2007 [facility] INFANT OR VALLEY CHILD INTERNAL HEALTH MED CHECK 6259 UNSPEC 08-05-2007 [place] [facility] W/FEMALE ASSOCIATES GENITAL ORGANS V780 SCREENING 07-29-2007 MANNIE Vazquez FOR IRON MARBELLA CABRERA DEFICIENCY ANEMIA 47248 MORBID 07-19-2007 SCHULSTAD, OBESITY JEANETTE 29652 NAUSEA 07-19-2007 SCHULSTAD, ALONE JEANETTE 07218 ABDOMINAL 07-19-2007 SCHULSTAD, PAIN RIGHT JEANETTE LOWER QUADRANT 66677 ABDOMINAL 05-06-2007 [facility] PAIN, VALLEY GENERALIZED INTERNAL MED 3670 HYPERMETROP 05-02-2007 HIGINIO [place] 97696 ABDOMINAL 05-02-2007 [place] PAIN RIGHT MEDICAL UPPER IMAGING [facility] 60391 DIARRHEA 05-01-2007 [facility] N EMERGENCY PHYS INC 625.9 Allergies, Adverse Reactions, Alerts Type Drug Allergy Food Allergy Adverse Reaction to Substance Substance Reaction Severity Methylprednisolone Unknown Unknown MILK Unknown Unknown Cinnamon Oil Unknown Unknown Peanuts D-ELVXEZ-VQQG/THROAT Unknown Onion K-USMEEU-DRTT/THROAT Unknown PEANUTS (FOOD) I-JKFYHC-SEAJ/THROAT Unknown Shrimp Unknown Unknown Medications Na ND [...] 18 -0 -0 .0 00 TE ti FL 50 7- 9- 00 01 ve OL [...] 18 -1 -1 .0 00 TE ti FL 50 0- 2- 00 01 ve OL [...] 37 -0 -1 .0 00 TE ti FL 80 9- 4- 00 01 ve OL 52 20 20 17 AI OL 30 17 17 44 D 1 52 PH FU AR MA MA RA CY TE 5 #3 93 MG 8 TA B BI 00 01 02 30 30 00 RI Ac SO 18 -2 -2 .0 00 TE ti FL 50 2- 4- 00 01 ve OL [...] 18 -1 -1 .0 00 TE ti FL 50 2- 3- 00 01 ve OL [...] ti LO 34 7- 7- 00 56 AR ve L 23 20 20 AI E 20 50 11 11 D JR 1 PH MG AR WI MA LL TA CY IA BL M ET 03 F 93 8 # 03 93 OR 50 10 10 2 28 28 RI 90 MC Ac TH 45 -1 -1 .0 TE 35 KE ti O 80 7- 7- 00 57 AR ve TR 25 20 20 AI E I- 11 11 11 D JR CY 5 PH CL AR WI EN MA LL CY IA LO M 03 F TA 93 BL 8 ET # 03 93 NA 00 07 09 2 30 30 RI 89 MC Ac DO 09 -2 -1 .0 TE 21 KE ti LO 34 5- 8- 00 12 AR ve L 23 20 20 AI E 20 50 11 11 D JR 1 PH MG AR WI MA LL TA CY IA BL M ET 03 F 93 8 # 03 93 OR 50 03 09 5 28 28 RI 87 MC Ac TH 45 -2 -1 .0 TE 71 KE ti O 80 9- 3- 00 22 AR ve TR 25 20 20 AI E I- 11 11 11 D JR CY 5 PH CL AR WI EN MA LL CY IA LO M 03 F TA 93 BL 8 ET # 03 93 NA 00 07 08 2 30 30 RI 89 MC Ac DO 09 -2 -2 .0 TE 21 KE ti LO 34 5- 1- 00 12 AR ve L 23 20 20 AI E 20 50 11 11 D JR 1 PH MG AR WI MA LL TA CY IA BL M ET 03 F 93 8 # 03 93 OR 50 03 08 5 28 28 RI 87 MC Ac TH 45 -2 -0 .0 TE 71 KE ti O 80 9- 9- 00 22 AR ve TR 25 20 20 AI E I- 11 11 11 D JR CY 5 PH CL AR WI EN MA LL CY IA LO M 03 F TA 93 BL 8 ET # 03 93 NA 00 07 07 2 30 30 RI 89 Ac DO 09 -2 -2 .0 TE 21 KE ti LO 34 5- 5- 00 12 AR ve L 23 20 20 AI E 20 50 11 11 D JR 1 PH MG AR WI MA LL TA CY IA BL M ET 03 F 93 8 # 03 93 OR 50 03 07 5 28 28 RI 87 Ac TH 45 -2 -0 .0 TE 71 KE ti O 80 9- 9- 00 22 AR ve TR 25 20 20 AI E I- 11 11 11 D JR CY 5 PH CL AR WI EN MA LL CY IA LO M 03 F TA 93 BL 8 ET # 03 93 NA 00 04 06 2 30 30 RI 88 Ac DO 09 -2 -2 .0 TE 04 KE ti LO 34 2- 0- 00 61 AR ve L 23 20 20 AI E 20 50 11 11 D JR 1 PH MG AR WI MA LL TA CY IA BL M ET 03 F 93 8 # 03 93 OR 50 03 06 5 28 28 RI 87 Ac TH 45 -2 -0 .0 TE 71 KE ti O 80 9- 8- 00 22 AR ve TR 25 20 20 AI E I- 11 11 11 D JR CY 5 PH CL AR WI EN MA LL CY IA LO M 03 F TA 93 BL 8 ET # 03 93 NA 00 04 05 2 30 30 RI 88 Ac DO 09 -2 -2 .0 TE 04 KE ti LO 34 2- 3- 00 61 AR ve L 23 20 20 AI E [...] KE ti 21 9- 4- 00 22 AR ve 25 20 20 AI E 11 11 11 D JR 5 PH AR WI MA LL CY IA M 03 F 93 8 # 03 93 NA 00 04 04 2 30 30 RI 88 Ac DO 2 -2 .0 TE 04 KE ti LO 34 2- 2- 00 61 AR ve L 23 20 20 AI E 20 50 11 11 D JR 1 PH MG AR WI MA LL TA CY IA BL M ET 03 F 93 8 # 03 93 00 03 03 5 28 28 RI 87 Ac 06 -2 -2 .0 TE 71 KE ti 21 9- 9- 00 22 AR ve 25 20 20 AI E 11 11 11 D JR 5 PH AR WI MA LL CY IA M 03 F 93 8 # 03 93 NA 00 01 03 2 30 30 RI 86 Ac DO -2 -2 .0 TE 75 KE ti LO 34 4- 4- 00 71 AR ve L 23 20 20 AI E 20 50 11 11 D JR 1 PH MG AR WI MA LL TA CY IA BL M ET 03 F 93 8 # 03 93 00 11 02 5 28 28 RI 85 Ac 06 -1 -2 .0 TE 99 KE ti 21 1- 3- 00 42 AR ve 25 20 20 AI E 11 10 11 D JR 5 PH AR WI MA LL CY IA M 03 F 93 8 # 03 93 NA 00 01 02 2 30 30 RI 86 Ac DO 2 -2 .0 TE 75 KE ti LO 34 4- 2- 00 71 AR ve L 23 20 20 AI E [...] 20 AI LI 30 11 11 D AR N 5 PH CH 50 AR AE 0 MA L MG CY S CA 03 PS 93 UL 8 E # 03 93 NA 00 01 01 2 30 30 RI 86 Ac DO -2 -2 .0 TE 75 KE ti LO 34 4- 4- 00 71 AR ve L 23 20 20 AI E 20 50 11 11 D JR 1 PH MG AR WI MA LL TA CY IA BL M ET 03 F 93 8 # 03 93 00 11 01 5 28 28 RI 85 Ac 06 -1 -2 .0 TE 99 KE ti 21 1- 3- 00 42 AR ve 25 20 20 AI E 11 [...] KE ti 21 1- 5- 00 42 AR ve 25 20 20 AI E 11 10 10 D JR 5 PH AR WI MA LL CY IA M 03 F 93 8 # 03 93 NA 00 07 12 5 30 30 RI 84 MC Ac DO 09 -2 -2 .0 TE 29 KE ti LO 34 6- 3- 00 96 AR ve L 23 20 20 AI E 20 50 10 10 D JR 1 PH MG AR WI MA LL TA CY IA BL M ET 03 F 93 8 # 03 93 00 11 11 5 28 28 RI 85 MC Ac 06 -1 -2 .0 TE 99 KE ti 21 1- 8- 00 42 AR ve 25 20 20 AI E 11 10 10 D JR 5 PH AR WI MA LL CY IA M 03 F 93 8 # 03 93 NA 00 07 11 5 30 30 RI 84 MC Ac DO 09 -2 -2 .0 TE 29 KE ti LO 34 6- 6- 00 96 AR ve L 23 20 20 AI E 20 50 10 10 D JR 1 PH MG AR WI MA LL TA CY IA BL M ET 03 F 93 8 # 03 93 AM 00 11 11 20 10 RI 85 MC Ac OX 78 -1 -1 .0 TE 77 KE ti IC 15 1- 1- 00 79 AR ve IL 06 20 20 AI E LI 10 10 10 D JR N 1 PH 87 AR WI 5 MA LL MG CY IA M TA 03 F BL 93 ET 8 # 03 93 60 11 11 12 4 RI 85 MC Ac 25 -1 -1 0. TE 77 KE ti 80 1- 1- 00 80 AR ve 23 20 20 0 AI E [...] ti LO 34 6- 9- 00 96 AR ve L 23 20 20 AI E [...] ti LO 34 6- 0- 00 96 AR ve L 23 20 20 AI E [...] ti LO 34 6- 2- 00 96 AR ve L 23 20 20 AI E 20 50 10 10 D JR 1 PH MG AR WI MA LL TA CY IA BL M ET 03 F 93 8 # 03 93 NA 00 07 07 5 30 30 RI 84 MC Ac DO 37 -2 -2 .0 TE 29 KE ti LO 80 6- 6- 00 96 AR ve L 02 20 20 AI E [...] 20 AI IN 30 10 10 D AR E 1 PH CH PA AR AE M MA L 25 CY S MG 03 93 CA 8 P # 03 93 JIMÉNEZ 00 06 06 14 7 RI 83 GA Ac LF 60 -2 -2 .0 TE 95 IN ti AM 35 5- 6- 00 31 EY ve ET 78 20 20 AI HO 12 10 10 D AR XA 8 PH CH ZO AR AE LE MA L -T CY S MP 03 DS 93 8 TA # BL 03 ET 93 NA 00 04 06 2 30 30 RI 83 MC Ac DO 37 -2 -2 .0 TE 09 KE ti LO 80 3- 5- 00 64 AR ve L 02 20 20 AI E 20 80 10 10 D JR 1 PH MG AR WI MA LL TA CY IA BL M ET 03 F 93 8 # 03 93 NA 00 04 05 2 30 30 RI 83 MC Ac DO 37 -2 -2 .0 TE 09 KE ti LO 80 3- 5- 00 64 AR ve L 02 20 20 AI E [...] ti MC 20 7- 7- 00 81 AR ve IN 06 20 20 AI E OL 43 10 10 D JR ON 6 PH E AR WI 0. MA LL 1% CY IA M CR 03 F EA 93 M 8 # 03 93 NA 00 04 04 2 30 30 RI 83 MC Ac DO 37 -2 -2 .0 TE 09 KE ti LO 80 3- 3- 00 64 AR ve L 02 20 20 AI E 20 80 10 10 D JR 1 PH MG AR WI MA LL TA CY IA BL M ET 03 F 93 8 # 03 93 NA 00 01 03 2 30 30 RI 82 MC Ac DO 37 -2 -2 .0 TE 71 KE ti LO 80 1- 5- 00 55 AR ve L 02 20 20 AI E 20 80 10 10 D JR 1 PH MG AR WI MA LL TA CY IA BL M ET 03 F 93 8 # 03 93 NA 00 01 01 00 30 30 RI 81 MC Ac DO 37 -2 -2 .0 TE 81 KE ti LO 80 1- 8- 00 46 AR ve L 02 20 20 AI E 20 80 10 10 D JR 1 PH MG AR [place] M LL TA #3 IA BL 93 M ET 8 F NA 00 07 12 05 30 30 RI 79 MC Ac DO 37 -2 -3 .0 TE 32 KE ti LO 80 7- 1- 00 99 AR ve L 02 20 20 AI E 20 80 09 09 D JR 1 PH MG AR [place] M LL TA #3 IA BL 93 M ET 8 F NA 00 07 12 04 30 30 RI 79 Ac DO 37 -2 -0 .0 TE 32 KE ti LO 80 7- 3- 00 99 AR ve L 02 20 20 AI E 20 80 09 09 D JR 1 PH MG AR [place] M LL TA #3 IA BL 93 M ET 8 F NA 00 07 11 03 30 30 RI 79 Ac DO 37 -2 -0 .0 TE 32 KE ti LO 80 7- 5- 00 99 AR ve L 02 20 20 AI E 20 80 09 09 D JR 1 PH MG AR [place] M LL TA #3 IA BL 93 M ET 8 F CE 00 10 10 00 20 7 RI 80 MC Ac FD 78 -1 -2 .0 TE 39 KE ti IN 12 3- 2- 00 50 AR ve IR 17 20 20 AI E 66 09 09 D JR 30 0 PH 0 AR WI MG M LL #3 IA CA 93 M PS 8 F UL E YA 50 10 10 00 28 28 RI 80 MC Ac Z 41 -1 -2 .0 TE 39 KE ti 28 90 3- 2- 00 52 AR ve 40 20 20 AI E TA 50 09 09 D JR BL 3 PH ET AR WI M LL #3 IA 93 M 8 F OF 61 10 10 00 5. 10 RI 80 MC Ac LO 31 -1 -2 00 TE 39 KE ti XA 40 3- 2- 0 51 AR ve CI 01 20 20 AI E N 50 09 09 D JR 0. 5 PH 3% AR [place] M LL EA #3 IA R [address] 8 F OP S NA 00 07 10 02 30 30 RI 79 MC Ac DO 37 -2 -0 .0 TE 32 KE ti LO 80 7- 8- 00 99 AR ve L 02 20 20 AI E 20 80 09 09 D JR 1 PH MG AR WI M LL TA #3 IA BL 93 M ET 8 F NA 00 07 09 01 30 30 RI 79 MC Ac DO 37 -2 -1 .0 TE 32 KE ti LO 80 7- 0- 00 99 AR ve L 02 20 20 AI E [...] ti AM 35 5- 3- 00 14 AR ve ET 78 20 20 AI E HO 12 09 09 D JR XA 8 PH ZO AR WI LE M LL -T #3 IA MP 93 M 8 F DS TA BL ET NA 00 07 08 00 30 30 RI 79 MC Ac DO 37 -2 -1 .0 TE 32 KE ti LO 80 7- 3- 00 99 AR ve L 02 20 20 AI E [...] M TA #3 BL 93 ET 8 FL 00 02 03 00 8. 2 RI [...] Procedure DOS Code Location Performer Comment FIBRIN [id number] LEANDRO REEVES DGRADJ 7 [facility] D-DIMER QUAL/SEMI COMFORT ECG [id number] LEANDRO REEVES ROUTINE 7 [facility] [place] [facility] [place] HOSP ECG INC INC W/LEAST 12 LDS TRCG ONLY W/O I&R CREATINE 76163 LEANDRO REEVES KINASE 7 [facility] TOTAL INC INC BLOOD 00601 LEANDRO REEVES COUNT 7 [facility] COMPLETE INC INC AUTO&AUTO DIFRNTL WBC URNLS DIP 42898 LEANDRO REEVES 7 [facility] STICK/TAB INC INC [place] [address] LEANDRO REEVES TROPONIN 7 [facility] QUANTITAT INC INC OPAL ECG 87133 LEANDRO FERRELL ROUTINE 7 [facility] W/LEAST P 12 LDS I&R ONLY RADIOLOGI 93806 [facility] C EXAM 7 MEDICAL MEDICAL CHEST 2 IMAGING IMAGING VIEWS ASS ASS FRONTAL&L ATERAL URINE 99483 LEANDRO REEVES 7 [facility] TEST INC INC VISUAL COLOR CMPRSN METHS COMPREHEN 09115 LEANDRO REEVES SIVE 7 [facility] METABOLIC INC INC PANEL CREATINE 82178 LEANDRO REEVES KINASE MB 7 [facility] FRACTION INC INC ONLY ECHO 22659 [place] [facility] R[facility]T 6 MEDICAL 2D SERV W/WOM-MOD FOUNDATIO E COMPL N SPEC&COLR D LIPID 82725 LEANDRO REEVES PANEL 6 [facility] INC INC BLOOD 53688 LEANDRO REEVES COUNT 6 [facility] COMPLETE INC INC AUTO&AUTO DIFRNTL WBC COLLECTIO 79568 LEANDRO REEVES N VENOUS 6 [facility] BLOOD INC INC VENIPUNCT URE COMPREHEN 42533 LEANDRO REEVES SIVE 6 [facility] [place] [address] LEANDRO REEVES THYROID 6 [facility] STIMULATI INC INC NG HORMONE TSH DELIVERY [id number] LEANDRO REEVES PRODUCTS 6 [facility] OF INC INC CONCEPTIO N EXTERNAL NEURAXIAL 84738 [facility] FEEBACK LABOR 6 ANESTH REE ANALG/ANE OF THE S PLND BLUE VAGINAL DELIVERY VAGINAL 04294 [facility] DELIVERY 6 PHYSICIAN VARUN ONLY S GROUP W/POSTPAR MIC CARE URNLS DIP 61928 LEANDRO REEVES 6 [facility] STICK/TAB INC INC LET REAGENT AUTO MICROSCOP Y EVAL C/V 79777 LEANDRO REEVES AMNIOTIC 6 [facility] FLUID INC INC PROTEIN QUAL EA SPECIMEN 05105 LEANDRO REEVES NONSTRESS 6 [facility] TEST INC INC BASIC 56654 LEANDRO REEVES METABOLIC 6 [facility] [place] [address] LEANDRO REEVES BLOOD/URI 6 [facility] C ACID INC INC TRANSFERA 12106 LEANDRO REEVES SE 6 [facility] ASPARTATE INC INC AMINO AST SGOT TRANSFERA 85276 LEANDRO REEVES SE 6 [facility] ALANINE INC INC AMINO ALT SGPT URNLS DIP 83224 LEANDRO REEVES 6 [facility] STICK/TAB INC INC LET REAGENT AUTO MICROSCOP Y BLOOD 70075 LEANDRO REEVES COUNT 6 [facility] COMPLETE INC INC AUTO&AUTO DIFRNTL WBC ECG 39853 ASHLEY SINHA ROUTINE 6 MEDICAL NAN ECG SERV W/LEAST FOUNDATIO 12 LDS N I&R ONLY THROMBOPL 65918 LEANDRO REEVES ASTIN 6 [facility] TIME INC INC PARTIAL PLASMA/WH OLE BLOOD CULTURE 87381 LEANDRO REEVES BACTERIAL 6 [facility] INC INC QUANTTATI VE COLONY COUNT URINE FIBRIN 89247 LEANDRO REEVES DGRADJ 6 [facility] PRODUCTS INC INC D-DIMER QUAL/SEMI COMFORT FIBRINOGE 87214 LEANDRO REEVES N 6 [facility] ACTIVITY INC INC PROTHROMB 55568 LEANDRO REEVES IN TIME 6 [facility] INC INC ECG 55461 [facility] ROUTINE 6 Y Y ECG [facility] W/LEAST 12 LDS TRCG ONLY W/O I&R 12898 [facility] NONSTRESS 6 PHYSICIAN CORI TEST S GROUP 77265 [facility] NONSTRESS 6 PHYSICIAN VARUN TEST S GROUP URNLS DIP 33798 LEANDRO REEVES 6 [facility] STICK/TAB INC INC LET REAGENT AUTO MICROSCOP Y CULTURE 52737 LEANDRO REEVES BACTERIAL 6 [facility] INC INC QUANTTATI VE COLONY COUNT URINE US PREG 76367 [facility] UTERUS 6 PHYSICIAN VARUN REAL TIME S GROUP F/U TRNSABDL PER FETUS HANDLG&/O 81488 [facility] R CONVEY 6 PHYSICIAN VARUN OF SPEC S GROUP FOR TR OFFICE TO LAB 31299 [facility] BIOPHYSIC 6 PHYSICIAN VARUN AL S GROUP PROFILE W/O NON-STRES S TESTING PARTICLE 15089 LEANDRO REEVES AGGLUTINA 6 [facility] [place] [address] LEANDRO REEVES INFUSION 6 [facility] THERAPY/P INC INC ROPHYLAXI S /DX 1ST TO 1 HR 96209 LEANDRO REEVES NONSTRESS 6 [facility] TEST INC INC UNCLASSIF J3490 LEANDRO REEVES IED DRUGS 6 [facility] INC INC COLLECTIO 85996 [facility] N 6 PHYSICIAN VARUN CAPILLARY S GROUP BLOOD SPECIMEN GLUCOSE 80575 [facility] POST 6 PHYSICIAN PHYSICIAN GLUCOSE S GROUP S GROUP DOSE URNLS DIP 21155 LEANDRO REEVES 6 [facility] STICK/TAB INC INC LET REAGENT AUTO MICROSCOP Y EVAL C/V 80873 LEANDRO REEVES AMNIOTIC 6 [facility] FLUID INC INC PROTEIN QUAL EA SPECIMEN 91130 [facility] NONSTRESS 6 PHYSICIAN VARUN TEST S GROUP 83471 [facility] NONSTRESS 6 PHYSICIAN VARUN TEST S GROUP URNLS DIP 76497 LEANDRO REEVES 6 [facility] STICK/TAB INC INC LET REAGENT AUTO MICROSCOP Y US PREG 62863 [place] [facility] UTERUS 6 MEDICAL JANE AFTER 1ST IMAGING TRIMEST ASS GESTATION US PREG 18240 LEANDRO REEVES UTERUS 6 [facility] W/DETAIL INC INC MONALISA 1ST GESTATION IAADIADOO 36492 [place] BESSON 6 [facility] STREPTOCO INTERNAL CCUS MED GROUP A UNCLASSIF J3490 LEANDRO REEVES IED DRUGS 6 [facility] INC INC CULTURE 81562 LEANDRO REEVES BCT 6 [facility] ISOL&PRSM INC INC PTV ID ISOLATE EA URINE CULTURE 87363 LEANDRO REEVES BACTERIAL 6 [facility] INC INC QUANTTATI VE COLONY COUNT URINE SUSCEPTIB 61071 LEANDRO REEVES LTY STDY 6 [facility] ANTIMICRB INC INC IAL MICRO/AGA R DILUTJ URNLS DIP 78193 LEANDRO REEVES 6 [facility] STICK/TAB INC INC LET REAGENT AUTO MICROSCOP Y RADEX 37631 LEANDRO REEVES ANKLE 6 [facility] COMPLETE INC INC MINIMUM 3 VIEWS RADIOLOGI 86820 LEANDRO REEVES C 6 [facility] EXAMINATI INC INC ON KNEE 3 VIEWS RADIOLOGI 33525 [place] VELEZ ALL C 6 MEDICAL EXAMINATI IMAGING ON ANKLE ASS 2 VIEWS RADIOLOGI 21186 [place] VELEZ ALL C 6 MEDICAL EXAMINATI IMAGING ON KNEE ASS 1/2 VIEWS INF AGT G0432 LEANDRO REEVES AB DETECT 6 [facility] EIA TECH INC INC HIV-1&/HI V-2 SCR ALPHA-FET 82029 LEANDRO REEVES OPROTEIN 6 [facility] SERUM INC INC OBSTETRIC 31365 LEANDRO REEVES PANEL 6 [facility] INC INC COLLECTIO 19521 LEANDRO REEVES N VENOUS 6 [facility] BLOOD INC INC VENIPUNCT URE GONADOTRO 06082 LEANDRO REEVES PIN 6 [facility] CHORIONIC [place] [address] LEANDRO REEVES ESTRIOL 6 MEM [facility] INC INC US PREG 27472 [facility] GUIL[facility] UTERUS 5 PHYSICIAN VARUN REAL TIME S GROUP W/IMAGE DCMTN TRANSVAG IADNA 95611 LEANDRO REEVES CHLAMYDIA 5 [facility] INC INC TRACHOMAT IS AMPLIFIED PROBE TQ IADNA 11813 LAENDRO REEVES NEISSERIA 5 [facility] INC INC GONORRHO[place] [address] LEANDRO REEVES THYROID 5 [facility] STIMULATI INC INC NG HORMONE TSH COMPREHEN 68173 LEANDRO REEVES SIVE 5 [facility] METABOLIC INC INC PANEL COLLECTIO 34551 LEANDRO REEVES N VENOUS 5 [facility] BLOOD INC INC VENIPUNCT URE CUL BACT 25665 LEANDRO REEVES XCPT 5 [facility] URINE INC INC BLOOD/STO OL AEROBIC ISOL BLOOD 20613 LEANDRO REEVES COUNT 5 [facility] COMPLETE INC INC AUTO&AUTO DIFRNTL WBC BASIC 06604 LEANDRO REEVES METABOLIC 5 [facility] PANEL INC INC CALCIUM TOTAL TX MISSED 93344 [facility] 5 PHYSICIAN VARUN FIRST S GROUP TRIMESTER SURGICAL ECG 36362 LEANDRO BERRY JR ROUTINE 5 [facility] W/LEAST P 12 LDS I&R ONLY BLOOD 45244 LEANDRO REEVES COUNT 5 [facility] COMPLETE INC INC AUTO&AUTO DIFRNTL WBC ANESTHESI 67273 [facility] NARVAEZ MICHELE A 5 ANESTH INCOMPLET OF THE E/[place] [address] [facility], MICHAEL SURG 5 [facility] PATHOLOGY GROSS&TONY ROSCOPIC EXAM BLOOD 78101 LEANDRO REEVES COUNT 5 [facility] COMPLETE INC INC AUTO&AUTO DIFRNTL WBC URNLS DIP 56224 LEANDRO REEVES 5 [facility] STICK/TAB INC INC LET REAGENT AUTO MICROSCOP Y COMPREHEN 49387 LEANDRO REEVES SIVE 5 [facility] METABOLIC INC INC PANEL GONADOTRO 06303 LEANDRO REEVES PIN 5 [facility] CHORIONIC INC INC QUANTITAT OPAL US PREG 07046 [facility] R[facility]Z UTERUS 5 MEDICAL JANE REAL TIME IMAGING W/IMAGE ASS DCMTN TRANSVAG US PREG 77778 LEANDRO REEVES UTERUS 5 [facility] REAL TIME INC INC W/IMAGE DCMTN TRANSVAG INF AGT G0432 LEANDRO REEVES AB DETECT 5 [facility] EIA TECH INC INC HIV-1&/HI V-2 SCR OBSTETRIC 88087 LEANDRO REEVES PANEL 5 [facility] INC INC COLLECTIO 65439 LEANDRO REEVES N VENOUS 5 [facility] BLOOD INC INC VENIPUNCT URE IADNA 52654 [facility] CHLAMYDIA 5 [facility] TRACHOMAT IS AMPLIFIED PROBE TQ IADNA 59850 [facility] NEISSERIA [facility] GONORRHOE AE AMPLIFIED PROBE TQ CYTP 05942 [facility] CERVICAL/ 5 LLC VAGINAL REQ INTERP PHYSICIAN CYTP C/V 05424 [facility], [facility] AUTO THIN 5 LLC LYR PREPJ SCR MNL RESCR PHYS CONTRACEP A4267 [facility] TIVE 5 [facility] SUPPLY [facility] DEPT [facility] DEPT CONDOM KORI KORI MALE EACH IADNA 93863 [facility] NEISSERIA 5 [facility] DEPT [facility] DEPT GONORRHOE KOIR KORI AE AMPLIFIED PROBE TQ URNLS DIP 82341 [facility] 5 [facility] STICK/TAB [facility] DEPT [facility] DEPT LET RGNT KORI KORI NON-AUTO W/O MICRSCP IADNA 71243 [facility] CHLAMYDIA 5 [facility] TRACHOMAT KORI KORI IS AMPLIFIED PROBE TQ ECG 87333 [facility] ROUTINE 4 NNAMDI ECG EMERGENCY W/LEAST PHYS 12 LDS I&R ONLY VAGINAL 85995 [facility] DELIVERY 4 VARUN VARUN ONLY W/POSTPAR MIC CARE NEURAXIAL 93853 A[facility] 4 ANALG/ANE S PLND VAGINAL DELIVERY REPAIR OF 7569 LEANDRO REEVES OTHER 4 [facility] CURRENT INC INC OBSTETRIC LACERATIO N 97784 [facility] BIOPHYSIC 4 VARUN VARUN AL PROFILE W/O NON-STRES S TESTING CUL BACT 59547 COMBINED COMBINED XCPT 4 PHYSICIAN PHYSICIAN URINE S LA S LA BLOOD/STO OL AEROBIC ISOL US PREG 38963 [facility]AS VANEGAS UTERUS 4 VARUN VARUN REAL TIME F/U TRNSABDL PER FETUS DOPPLER 60730 VANEGAS VANEGAS VELOCIMET 4 VARUN VARUN RY UMBILICAL ARTERY DOPPLER 60405 [facility]AS VANE[facility]AS VELOCIMET 4 VARUN VARUN RY UMBILICAL ARTERY US PREG 58434 [facility]ANE[facility]AS UTERUS 4 VARUN VARUN REAL TIME F/U TRNSABDL PER FETUS 85264 [facility] BIOPHYSIC 4 VARUN VARUN AL PROFILE W/O NON-STRES S TESTING COLLECTIO 18299 [facility] VANEGAS N 4 VARUN VARUN CAPILLARY BLOOD SPECIMEN GLUCOSE 31387 [facility] VANE[facility]AS TOLERANCE 4 VARUN VARUN TEST GTT 3 SPECIMENS 78682 MARBELLA SHEIKHPEL NONSTRESS 4 CORI CORI TEST 53651 MANNIE SHEIKHPEL NONSTRESS 3 MARBELLA CABRERA CORI TEST US PREG 05912 [facility] UTERUS 3 VARUN VARUN AFTER TRIMEST GESTATION TISS JENNIFER 95351 LEANDRO REEVES SLIDE 3 [facility] SAMPS INC INC SKN/HR/NL S FNGI/ECTO PARASIT SMR PRIM 75818 LEANDRO REEVES SRC WET 3 [facility] MOUNT INC INC NFCT AGT URNLS DIP 76127 LEANDRO REEVES 3 [facility] STICK/TAB INC INC LET REAGENT AUTO MICROSCOP Y US PREG 24331 SARA SARA UTERUS 3 JANE JANE REAL TIME W/IMAGE DCMTN TRANSVAG URNLS DIP 50133 LEANDRO REEVES 3 [facility] STICK/TAB INC [place] [address] LEANDRO REEVES 3 [facility] UTERUS INC INC LIMITED 1/> FETUSES EVAL C/V 32611 LEANDRO REEVES AMNIOTIC 3 [facility] FLUID INC INC PROTEIN QUAL EA SPECIMEN US PREG 90075 SARA SARA UTERUS 3 JANE JANE AFTER 1ST TRIMEST 1/ GESTATION TISS JENNIFER 27728 LEANDRO REEVES SLIDE 3 [facility] SAMPS INC INC SKN/HR/NL S FNGI/ECTO PARASIT SMR PRIM 99643 LEANDRO REEVES SRC WET 3 [facility] MOUNT INC INC NFCT AGT US PREG 72555 LEANDRO REEVES UTERUS 3 [facility] REAL TIME INC INC W/IMAGE DCMTN TRANSVAG URNLS DIP 31768 LEANDRO REEVES 3 [facility] STICK/TAB INC INC LET REAGENT AUTO MICROSCOP Y URNLS DIP 76146 LEANDRO REEVES 3 [facility] STICK/TAB INC INC LET REAGENT AUTO MICROSCOP Y URINE 09576 LEANDRO REEVES 3 [facility] TEST INC INC VISUAL COLOR CMPRSN METHS US PREG 75662 GUILHERME SNOWE UTERUS 3 VARUN VARUN REAL TIME W/IMAGE DCMTN TRANSVAG URNLS DIP 17970 LEANDRO REEVES 3 [facility] STICK/TAB INC INC LET REAGENT AUTO MICROSCOP Y US PREG 42397 SARA SARA UTERUS 3 JANE JANE REAL TIME W/IMAGE DCMTN TRANSVAG US PREG 80436 VANEGAS VANEGAS UTERUS 3 VARUN VARUN REAL TIME W/IMAGE DCMTN TRANSVAG ANTIBODY 69065 COMBINED COMBINED CHLAMYDIA 3 PHYSICIAN PHYSICIAN S LA S LA CUL BACT 29871 COMBINED COMBINED XCPT 3 PHYSICIAN PHYSICIAN URINE S LA S LA BLOOD/STO OL AEROBIC ISOL URINE 14233 GUILHERME SNOWE 3 VARUN VARUN TEST VISUAL COLOR CMPRSN METHS URINE 61247 LEANDRO REEVES 3 [facility] CENTER VISUAL COLOR CMPRSN METHS DEMO&/PETR 17402 KAILASH KAILASH L OF PT 2 NIKKY NIKKY UTILIZ AERSL GEN/NEB/I NHLR/IP INTRACUTA 12828 KAILASH KAILASH NEOUS 2 NIKKY NIKKY TESTS W/ALLERGE LUCY EXTRACTS PERCUTANE 41094 KAILASH KAILASH OUS TESTS 2 NIKKY NIKKY W/ALLERGE LUCY EXTRACTS BRNCDILAT 77873 KAILASH KAILASH RSPSE 2 NIKKY NIKKY SPMTRY PRE&POST- BRNCDILAT ADMN IM ADM 79189 LEANDRO CHAVEZON PRQ ID 2 [facility] SUBQ/IM CENTER CENTER NJXS 1 VACCINE MCV4 07834 LEANDRO REEVES MENACWY 2 [facility] CONJ VACC CENTER CENTER GRPS ACYW-135 IM USE URINE 73852 LEANDRO REEVES 2 [facility] TEST INC INC VISUAL COLOR CMPRSN METHS PRESSURIZ 88222 LEANDRO REEVES ED/NONPRE 2 [facility] SSURIZED INC INC INHALATIO N TREATMENT RADIOLOGI 45319 LEANDRO REEVES C EXAM 2 [facility] CHEST 2 INC INC VIEWS FRONTAL&L ATERAL FRAMES V2020 [place] [facility] FELIX YULIYA PURCHASES 2 FITTING 20127 [place] [facility] [place] [facility] SPECTACLE 2 S XCPT APHAKIA MONOFOCAL SPHERE V2100 [place] [facility] [facility] SINGLE 2 VISION [facility]ANO +/- 4.00 PER LENS DETERMINA 59429 [place] [facility] [place] [facility] TION 2 REFRACTIV E STATE OPHTH 46035 [facility] DWYER [place] [facility] MEDICAL 2 XM&EVAL COMPRHNSV ESTAB PT 1/> COMPREHEN 27453 LEANDRO REEVES SIVE 1 [facility] METABOLIC INC INC PANEL IMMUNOASS 41264 LEANDRO LUIS AY NFCT 1 [facility] AGT ANTB INC QUAL/SEMI COMFORT 1 STEP ANTIBODY 21053 LEANDRO REEVES IRASEMA-B 1 [facility] ARR EB INC INC VIRUS VIRAL CAPSID VCA BLOOD 05857 LEANDRO REEVES COUNT 1 [facility] COMPLETE INC INC AUTO&AUTO DIFRNTL WBC IM ADM 48666 LEANDRO REEVES PRQ ID 1 [facility] SUBQ[facility]IM CENTER CENTER NJXS 1 [place] [address] LEANDRO REEVES STREPTOCO 1 [facility] CCUS INC INC GROUP A SUSCEPTIB 38167 LEANDRO REEVES LTY STDY 1 [facility] ANTIMICRB INC INC IAL MICRO/AGA R DILUTJ CUL BACT 97751 LEANDRO REEVES AEROBIC 1 [facility] ADDL INC INC METHS DEFINITIV E EA ISOL CUL BACT 68781 LEANDRO REEVES XCPT 1 [facility] URINE INC INC BLOOD/STO OL AEROBIC ISOL RADIOLOGI 59205 LEANDRO REEVES C 1 [facility] EXAMINATI INC INC ON KNEE 3 VIEWS RADEX 11160 LEANDRO REEVES ANKLE 1 [facility] COMPLETE INC [place] MINIM[place] [address] [place] [address] LEANDRO REEVES HEAD/BRAI 1 [facility] N W/O INC INC CONTRAST MATERIAL URINE 85061 LEANDRO REEVES 1 [facility] TEST INC INC VISUAL COLOR CMPRSN METHS BASIC 41117 LEANDRO REEVES METABOLIC 1 [facility] PANEL INC INC CALCIUM TOTAL BLOOD 19865 LEANDRO REEVES COUNT 1 [facility] COMPLETE INC INC AUTO&AUTO DIFRNTL WBC URNLS DIP 06179 LEANDRO REEVES 1 [facility] STICK/TAB INC INC LET REAGENT AUTO MICROSCOP Y 3D 66130 LEANDRO REEVES RENDERING 1 [facility] W/INTERP INC INC & POSTPROCE SS SUPERVISI ON OPHTH 25839 [facility]FE[facility] MEDICAL 1 XM&EVAL COMPRE NEW PT 1/> VST FITTING 93616 ZAKI SHEFFIELD SPECTACLE 1 S XCPT APHAKIA MONOFOCAL SPHERE V2100 ZAKI SHEFFIELD SINGLE 1 VISION PLANO +/- 4.00 PER LENS DETERMINA 73829 ZAKI SHEFFIELD TION 1 REFRACTIV E STATE FRAMES V2020 ZAKI SHEFFIELD PURCHASES 1 RADEX 81102 LEANDRO CHAVEZON ANKLE 0 [facility] COMPLETE INC INC MINIMUM 3 VIEWS CLOSURE 8659 LEANDRO REEVES SKIN&SUBC 0 [facility] UTANEOUS INC INC TISSUE OTHER SITES SIMPLE 09259 KRIS NEGRETEMAN REPAIR 0 EMERGENCY III, SCALP/NEC SERVICES JONATAN K/AX/RAJIV T/TRUNK ASSOCIATE 2.5CM/< S CULTURE 34878 LEANDROMURPHY REEVES BACTERIAL 0 [facility] INC INC QUANTTATI VE COLONY COUNT URINE URNLS DIP 96766 LEANDRO REEVES 0 [facility] STICK/TAB INC INC LET REAGENT AUTO MICROSCOP Y URNLS DIP 09799 LEANDRO LEANDRO 9 [facility] STICK/TAB INC INC LET REAGENT AUTO MICROSCOP Y CULTURE 95940 LEANDRO REEVES BCT 9 [facility] ISOL&PRSM INC INC PTV ID ISOLATE EA URINE SUSCEPTIB 10228 LEANDROMURPHY REEVES LTY STDY 9 [facility] ANTIMICRB INC INC IAL MICRO/AGA R DILUTJ CULTURE 57938 LEANDRO REEVES BACTERIAL 9 [facility] INC INC QUANTTATI VE COLONY COUNT URINE BLOOD 81844 LEANDRO REEVES COUNT 9 [facility] COMPLETE INC INC AUTO&AUTO DIFRNTL WBC URNLS DIP 09717 LEANDRO CHAVEZON 9 [facility] STICK/TAB INC INC LET REAGENT AUTO MICROSCOP Y CORTISOL 28361 LEANDRO REEVES TOTAL 9 [facility] INC INC COMPREHEN 56995 LEANDRO REEVES SIVE 9 [facility] [address] LEANDRO REEVES THYROID 9 [facility] STIMULATI INC INC NG HORMONE TSH US PELVIC 00341 LEANDRO REEVES 8 [facility] NONOBSTET INC INC NIHARIKA REAL-TIME IMAGE COMPLETE BLOOD 02949 MANNIE TYSON, COUNT 8 MARBELLA Vazquez HEMOGLOBI N BLOOD 58429 LEANDRO REEVES COUNT 8 [facility] COMPLETE INC INC AUTO&AUTO DIFRNTL WBC CT PELVIS 43328 LEANDRO REEVES W/O 8 [facility] CONTRAST INC INC MATERIAL CULTURE 44378 LEANDRO REEVES BACTERIAL 8 [facility] INC INC QUANTTATI VE COLONY COUNT URINE BASIC 58856 LEANDRO LEANDRO METABOLIC 8 [facility] PANEL INC INC CALCIUM TOTAL URNLS DIP 88889 LEANDRO REEVES 8 [facility] STICK/TAB INC [place] [address] [place] SARA, ABDOMEN 8 MEDICAL YUMI W/O IMAGING CONTRAST ASSOCIATE MATERIAL S URINE 05079 LEANDRO REEVES 8 [facility] TEST INC INC VISUAL COLOR CMPRSN METHS 3D 07515 LEANDRO REEVES RENDERING 8 [facility] INC INC W/INTERP& POSTPROC DIFF WORK STATION CLOSURE 8659 LEANDRO REEVES SKIN&SUBC 8 [facility] UTANEOUS INC INC TISSUE OTHER SITES SPHERE V2100 FELIX [place], SINGLE 8 AMBER A AMBER A VISION PLANO +/- 4.00 PER LENS FRAMES V2020 FELIX [place], PURCHASES 8 AMBER A AMBER A OPHTH 95689 FELIX [place], MEDICAL 8 AMBER A AMBER A XM&EVAL COMPRE NEW PT 1/> [place] [address] LEANDRO REEVES ABDOMINAL 8 [facility] REAL INC INC TIME W/IMAGE LIMITED URNLS DIP 59999 KEV ANGULO 8 [facility] STICK/TAB [facility] LET REAGENT AUTO MICROSCOP Y BLOOD 92582 KEV ANGULO COUNT 8 [facility] AUTO&AUTO DIFRNTL WBC CULTURE 53898 KEV ANGULO BACTERIAL [address] [facility] QUANTTATI VE COLONY COUNT URINE COMPREHEN 45712 KEV ANGULO SIVE 8 [facility] PANEL COLLECTIO 08550 KEV ANGULO N VENOUS 8 [facility] VENIPUNCT URE FITTING 23202 FELIX, FELIX, SPECTBHUMI 8 AMBER A AMBER A S XCPT APHAKIA MONOFOCAL Encounters Encounter Start End Date Code Location Performer Type Date OFFICE 49494 PAM SCIES OUTPATIEN 7 7 T VISIT 10 MINUTES EMERGENCY 85496 [facility] 7 7 [facility] DEPARTMEN INC T VISIT MODERATE SEVERITY [facility] - [facility] 7 [facility] OUTPATIEN INC T EMERGENCY 54852 [facility] DEPT 7 7 PHYSICIAN VISIT S, [facility] HIGH SEVERITY& THREAT FUNJ OFFICE 98258 [facility] 6 6 [facility] T VISIT INTERNAL 10 MED MINUTES [facility]OSP[facility] - 6 6 [facility] T [facility] - 6 6 [facility] OUTPATIEN INC T OFFICE 23893 [facility]IS OUTPATIEN 6 6 [facility] T VISIT INTERNAL 15 MED MINUTES [facility] 6 6 [facility] INPATIENT INC OFFICE 07000 [facility] 6 6 PHYSICIAN CORI T VISIT S GROUP 15 MINUTES [facility]OSP[facility] - 6 6 [facility] OUTPATIEN INC T OFFICE 44653 [place] [facility] OUTPATIEN 6 6 MEDICAL NAN T VISIT SERV 25 FOUNDATIO MINUTES N OFFICE 33044 UN[facility] OUTPATIEN 6 6 Y T VISIT 5 [facility] UNIVERSIT - 6 6 Y OUTPATIEN HOSPITAL T OFFICE 85140 [facility] 6 6 PHYSICIAN VARUN T VISIT S GROUP 15 MINUTES OFFICE 56766 [facility] 6 6 PHYSICIAN VARUN T VISIT S GROUP 15 MINUTES [facility]OSPITAL [facility] - 6 6 [facility] INC T [facility] - 6 6 [facility]PATIEN INC T [facility] 6 6 [facility] OUTPATIEN INC T OFFICE 90341 [facility] 6 6 PHYSICIAN VARUN T VISIT S GROUP 15 MINUTES OFFICE 43762 [facility] 6 6 PHYSICIAN VARUN T VISIT S GROUP 15 MINUTES OFFICE 83737 [facility] 6 6 PHYSICIAN VARUN T VISIT S GROUP 15 MINUTES HOSPITAL [facility] - 6 6 [facility] T OFFICE 69953 [facility] 6 6 PHYSICIAN VARUN T [facility]ISIT S GROUP 15 MINUTES [facility]OSPITAL [facility] - 6 6 [facility]EN [facility] T OFFICE 23101 [facility] 6 6 PHYSICIAN VARUN T VISIT S GROUP 15 MINUTES OFFICE 53273 [facility] 6 6 PHYSICIAN VARUN T VISIT S GROUP 15 MINUTES HOSPITAL [facility] - 6 6 [facility] OUTPATIEN INC T OFFICE 34327 [facility] OUTPATIEN 6 6 [facility] T VISIT INTERNAL 15 MED MINUTES OFFICE 57246 [facility] 6 6 PHYSICIAN VARUN T VISIT S GROUP 15 MINUTES EMERGENCY 10628 DYLAN LEONE 6 6 PHYSICIAN TONY DEPARTMEN S, [facility] T VISIT HIGH/URGE NT SEVERITY HOSPITAL [facility] - 6 6 [facility] OUTPATIEN INC T EMERGENCY 94822 [facility] 6 6 [facility] DEPARTMEN INC T VISIT LOW/MODER SEVERITY EMERGENCY 78728 [facility] 6 6 [facility] DEPARTMEN INC T VISIT LOW/MODER SEVERITY EMERGENCY 15934 DYLAN LEONE DEPT 6 6 PHYSICIAN TONY VISIT [facility] HIGH SEVERITY& THREAT [facility] - 6 6 [facility] T OFFICE 80973 [facility] 6 6 [facility] T VISIT INTERNAL 15 MED MINUTES [facility] - 6 6 [facility] T OFFICE 07324 [facility] OUTPATIEN 6 6 PHYSICIAN VARUN T VISIT S GROUP 15 MINUTES HOSP[facility] - 5 5 [facility] T OFFICE 36837 [facility] OUTPATIEN 5 5 [facility] T VISIT INTERNAL 15 MED MINUTES [facility] - 5 5 [facility] 5 5 [facility] - 5 5 [facility] T EMERGENCY 65369 [facility] 5 5 [facility] DEPARTMEN INC T VISIT LOW/MODER SEVERITY EMERGENCY 90488 DYLAN JON DEPT 5 5 PHYSICIAN U MALAIKA VISIT [facility] HIGH SEVERITY& THREAT [facility] - 5 5 [facility] T [facility] 5 5 [facility] T OFFICE 57572 [facility] 5 5 [facility] T VISIT [facility] DEPT [facility] 10 [facility]ANDRO - 5 5 [facility] OUT[facility] INC T EMERGENCY 40563 DYLAN JON 5 5 PHYSICIAN U [facility]PARTMEN [facility] T VISIT MODERATE SEVERITY EMERGENCY 10976 [facility] 5 5 [facility] DE[facility] T VISIT LIMITED/M INOR PROB EMERGENCY 92643 [facility] DE[facility] 4 4 NNAMDI VISIT EMERGENCY HIGH PHYS SEVERITY& THREAT FUNCJ EMERGENCY 71871 CHAD CHAD 4 4 TONY TONY DEPARTMEN T VISIT MODERATE SEVERITY [facility] - 4 4 [facility] T EMERGENCY 79202 [facility] 4 4 [facility] DE[facility] T VISIT LOW/MODER SEVERITY [facility] - 4 4 [facility] INPATIENT INC OFFICE 60702 GUILHERME VANEGAS OUTPATIEN 4 4 VARUN VARUN T VISIT 15 MINUTES OFFICE 45021 [facility] VANEGAS OUTPATIEN 4 4 VARUN VARUN T VISIT 15 MINUTES OFFICE 31626 [facility] VANEGAS OUTPATIEN 4 4 VARUN VARUN T VISIT 15 MINUTES OFFICE 88093 GU[facility]HER[facility] VANEGAS OUTPATIEN 4 4 VARUN VARUN T VISIT 15 MINUTES OFFICE 04537 GU[facility]HERME VANEGAS OUTPATIEN 4 4 VARUN VARUN T VISIT 15 MINUTES OFFICE 01243 GU[facility]HERME VANEGAS OUTPATIEN 4 4 VARUN VARUN T VISIT 15 MINUTES OFFICE 43881 GUILHERME SNOWE OUTPATIEN 4 4 VARUN VARUN T VISIT 15 MINUTES OFFICE 10365 GU[facility]HERME VANEGAS OUTPATIEN 4 4 VARUN VARUN T VISIT 5 MINUTES OFFICE 88174 GU[facility]HER[facility] VANEGAS OUTPATIEN 4 4 VARUN VARUN T VISIT 15 MINUTES OFFICE 62382 GUILHERME VANEGAS OUTPATIEN 4 4 VARUN VARUN T VISIT 15 MINUTES OFFICE 89254 HARPEL HARPEL OUTPATIEN 4 4 CORI CORI T VISIT 15 MINUTES OFFICE 58511 GUILHERME VANEGAS OUTPATIEN 3 3 VARUN VARUN T VISIT 15 MINUTES OFFICE 99121 MANNIE TYSON OUTPATIEN 3 3 MARBELLA PERSAUD T VISIT 15 MINUTES Emergency IKE Rodriguez MD (ER) 3 20:22 3 23:13 [facility]DR[facility] - 3 3 [facility] OUTPATIEN INC T EMERGENCY 50588 ZIA CHR ZIA CHR 3 3 DEPARTMEN T VISIT MODERATE SEVERITY EMERGENCY 20150 [facility] 3 3 [facility] DEPART[facility] INC T VISIT LOW/MODER SEVERITY OFFICE 12308 GUILHERME VANEGAS OUTPATIEN 3 3 VARUN VARUN T VISIT 15 MINUTES OFFICE 66545 GUILHERME VANEGAS OUTPATIEN 3 3 VARUN VARUN T VISIT 15 MINUTES Emergency IKE Dugan (ER) 3 15:18 3 17:15 [facility] Jonatan E. EMERGENCY 07974 AMBER DUGAN 3 3 III EDWIN III [facility] DEPARTMEN T VISIT HIGH/URGE NT SEVERITY EMERGENCY 14440 [facility] 3 3 [facility] T VISIT LOW/MODER SEVERITY [facility] - 3 3 [facility] OUT[facility] T OFFICE 76140 GUILHERME VANEGAS OUTPATIEN 3 3 VARUN VARUN T VISIT 15 MINUTES Emergency IKE Dugan (ER) 3 11:11 3 13:40 [facility] Jonatan E. EMERGENCY 31501 [facility] AGUDELOT 3 3 [facility] VISIT INC HIGH SEVERITY& THREAT FUNCJ EMERGENCY 55952 AMBER DUGAN 3 3 III EDWIN III EDWIN DEPARTMEN T VISIT HIGH/URGE NT SEVERITY [facility]OSPITAL [facility] - 3 3 [facility] OUT[facility] T OFFICE 14011 GUILHERME VANEGAS OUTPATIEN 3 3 VARUN VARUN T VISIT 15 MINUTES Emergency IKE Leone MD (ER) 3 20:12 3 21:26 [facility] EMERGENCY 08035 CHAD LEONE 3 3 [facility] TONY DEPARTMEN T VISIT HIGH/URGE NT SEVERITY EMERGENCY 29366 [facility] 3 3 [facility] DEPARTMEN INC T VISIT LOW/MODER SEVERITY [facility]OSP[facility] - 3 3 [facility] OUTPATIEN INC T Emergency IKE Leone MD (ER) 3 21:32 3 22:59 [facility] EMERGENCY 30045 CHAD LEONE 3 3 [facility] TONY DEPARTMEN T VISIT HIGH/URGE NT SEVERITY HOSPITAL [facility] - 3 3 [facility] OUT[facility]IEN INC T EMERGENCY 99708 [facility] 3 3 [facility] DEPARTMEN INC T VISIT MODERATE SEVERITY OFFICE 92861 GUILHERME VANEGAS OUTPATIEN 3 3 VARUN VARUN T NEW 45 MINUTES OFFICE 17336 [facility] REEVES OUTPATIEN 3 3 [facility] T VISIT [facility] CENTER 15 MINUTES OFFICE 41933 KAILASH KAILASH OUTPATIEN 2 2 NIKKY NIKKY T NEW 45 MINUTES OFFICE 82990 ERIKA JAMES OUTPATIEN 2 2 MICHAEL RODRIGUEZ T VISIT 15 MINUTES OFFICE 40161 SHALINI LOYA OUTPATIEN 2 2 EVE PRADO T VISIT 15 MINUTES HOSPITAL [facility] - 2 2 [facility] T EMERGENCY 79428 KRIS PEDROELVIN NELSON 2 2 EMERGENCY DEPARTMEN SERVICES T VISIT HIGH/URGE NT SEVERITY EMERGENCY 70711 [facility] 2 2 [facility] DEPARTMEN INC T VISIT MODERATE SEVERITY OFFICE 47664 SHALINI LOYA OUTPATIEN 2 2 EVE PRADO T VISIT 15 MINUTES OFFICE 00701 ERIKA ERIKA OUTPATIEN 2 2 MICHAEL RODRIGUEZ T VISIT 15 MINUTES OFFICE 45866 ERIKA ERIKA OUTPATIEN 1 1 MICHAEL RODRIGUEZ T VISIT 10 MINUTES HOSP[facility] - 1 1 [facility] T [facility] - 1 1 [facility] T OFFICE 39857 ERIKA ERIKA OUTPATIEN 1 1 MICHAEL RODRIGUEZ T VISIT 15 MINUTES OFFICE 37159 SHALINI LOYA OUTPATIEN 1 1 EVE PRADO T VISIT 15 MINUTES HOSPITAL [facility] - 1 1 [facility] OUTPATIEN INC T EMERGENCY 90742 [facility] 1 1 [facility] DEPARTMEN INC T VISIT LOW/MODER SEVERITY EMERGENCY 74973 KRIS DUGAN 1 1 EMERGENCY III [facility] T VISIT HIGH/URGE NT SEVERITY OFFICE 93814 [facility] E[facility] OUTPATIEN 1 1 DOVER MICHAEL T VISIT INTERNAL 10 MEDI MINUTES OFFICE 78868 [facility] OUTPATIEN 1 1 DOVER MICHAEL T VISIT INTERNAL 15 MEDI MINUTES OFFICE 57270 [facility] BESSON OUTPATIEN 1 1 DOVER AVINASH T VISIT INTERNAL 15 MED MINUTES EMERGENCY 32573 [facility] 1 1 [facility] DEPARTMEN INC T VISIT MODERATE SEVERITY HOSPITAL [facility] - 1 1 [facility] OUTPATIEN INC T EMERGENCY 72686 KRIS LEONE DEPT 1 1 EMERGENCY TONY VISIT SERVICES HIGH SEVERITY& THREAT FUNCJ EMERGENCY 13132 [facility] 1 1 [facility] DEPARTMEN INC T VISIT LOW/MODER SEVERITY [facility] - 1 1 [facility] OUT[facility]EN INC T EMERGENCY 68790 KRIS ZAYAS LIBERTY 1 1 EMERGENCY DEPARTMEN SERVICES T VISIT MODERATE SEVERITY OFFICE 51979 [facility] OUTPATIEN 0 0 ALBERTO RODRIGUEZ T VISIT INTERNAL 15 MEDI MINUTES EMERGENCY 72627 KRIS OTOOLE BAB 0 0 EMERGENCY DEPARTMEN SERVICES T VISIT MODERATE SEVERITY EMERGENCY 71003 [facility] 0 0 [facility] DEPARTMEN INC T VISIT LOW/MODER SEVERITY [facility] - 0 0 [facility] OUT[facility] T OFFICE 55070 [facility] OUTPATIEN 0 0 ALBERTO RODRIGUEZ T VISIT INTERNAL 10 MEDI MINUTES EMERGENCY 99540 [facility] 0 0 [facility] DEPARTMEN INC T VISIT MODERATE SEVERITY EMERGENCY 52834 KRIS SANTIAGOCOREY 0 0 EMERGENCY III, DEPARTMEN SERVICES JONATAN T VISIT HIGH/URGE ASSOCIATE NT S SEVERITY [facility]OSPITAL [facility] - 0 0 [facility] OUT[facility]EN INC T EMERGENCY 41942 [facility] 0 0 [facility] DEPARTMEN INC T VISIT LOW/MODER SEVERITY [facility] - 0 0 [facility] T OFFICE 19333 [facility] BESNELLY, OUTPATIEN 0 0 ALBERTO ADKINS A T VISIT INTERNAL 15 MED MINUTES OFFICE 01697 [facility] MCKEMIE OUTPATIEN 0 0 ALBERTO RENDON EDWIN T VISIT INTERNAL 15 MED MINUTES HOSPITAL [facility] - 0 0 [facility] OUT[facility]EN INC T OFFICE 65918 [facility] SHALINI OUTPATIEN 0 0 ALBERTO PRADO T VISIT INTERNAL 15 MEDI MINUTES OFFICE 88509 [facility] MCKEMIE OUTPATIEN 9 9 ALBERTO , T VISIT INTERNAL JONATAN F 15 MED MINUTES HOSP[facility] - 9 9 [facility] OUT[facility] INC T EMERGENCY 76202 KRIS SOLOMON, 9 9 [facility] MODERATE ASSOCIATE SEVERITY S EMERGENCY 78189 [facility] 9 9 [facility] DEPARTMEN INC T VISIT LOW/MODER SEVERITY OFFICE 35903 [facility] LUÍSNELLY OUTPATIEN 9 9 DOVER JED A T VISIT INTERNAL 15 MED MINUTES HOSPITAL [facility] - 9 9 [facility] OUTPATIEN INC T OFFICE 78912 [facility] LUÍSNELLY OUTPATIEN 9 9 DOVER JED A T VISIT INTERNAL 15 MED MINUTES HOSPITAL [facility] - 9 9 [facility] OUTPATIEN INC T OFFICE 63811 [facility] LUÍSNELLY OUTPATIEN 9 9 DOVER JED A T VISIT INTERNAL 15 MED MINUTES OFFICE 16697 [facility] TYRA OUTPATIEN 9 9 DOVER KATHY T VISIT INTERNAL 10 MED MINUTES OFFICE 54674 ROBERTO WHITMORE 8 8 MARBELLA Vazquez T VISIT 15 MINUTES PERIODIC 23491 [facility] MCKEMIE PREVENTIV 8 8 [facility], E MED EST INTERNAL [facility] PATIENT MED [facility] LEAN[facility] - 8 8 [facility] OUTPATIEN INC T OFFICE 71702 MANNIE TYSON, CONSULTAT 8 8 MARBELLA Vazquez ION NEW/ESTAB PATIENT 80 MIN HOSPITAL [facility] - 8 8 [facility] OUT[facility]EN INC T EMERGENCY 86419 [facility] 8 8 [facility] DEPARTMEN INC T VISIT MODERATE SEVERITY EMERGENCY 22840 KAYLAN KIMBROUGH 8 8 , JEANETTE REID DEPARTMEN T VISIT HIGH/URGE NT SEVERITY HOSPITAL [facility] - 8 8 [facility] OUT[facility] INC T EMERGENCY 78379 [facility] 8 8 [facility] DEPARTMEN INC T VISIT LOW/MODER SEVERITY OFFICE 19211 TAMY FERRELL [facility] 8 8 DOVER JED [place] T VISIT INTERNAL 15 MED MINUTES HOSPITAL [facility] - 8 8 [facility] [place] - 8 8 [facility] T EMERGENCY 86510 [facility], 8 8 NNAMDI LEON Nash [facility] EMERGENCY T VISIT [facility] INC MODERATE SEVERITY EMERGENCY 06734 [place] 8 8 [facility] T VISIT LOW/MODER SEVERITY
--- OUTSIDE RECORDS SUMMARY | 2016-09-07 16:44 | External Medical Summary Rpt ---
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 20 20 AI NA TA 50 09 09 D TA BL 3 PH LI ET AR E M E #3 93 8 NA 00 01 07 05 30 30 [...] M TA #3 BL 93 ET 8 KS 00 02 03 00 8. 2 RI [...] Given on t er Refuse d MCV4 Mening CHAVEZ No MENACW [place] [facility] ACYW-1 admini 35 IM stered USE ; formul ation not specif ied. MCV4 Mening CHAVEZ No MENACW 2011 [place] [facility] ACYW-1 admini 35 IM stered USE ; formul ation not specif ied. Procedures Procedure DOS Code Location Performer Comment CREATINE 89571 LEANDRO REEVES KINASE 7 [facility] TOTAL INC INC URINE 77582 LEAN[address] [facility] TEST INC INC VISUAL COLOR CMPRSN METHS COMPREHEN 38860 LEANDRO REEVES [address]IVE [facility] METABOLIC INC INC PANEL CREATINE 64241 LEANDRO REEVES KINASE MB [address] [facility] FRACTION INC INC ONLY URNLS DIP [address] [facility] STICK/TAB INC INC [place] [address] LEANDRO REEVES TROPONIN 7 [facility] QUANTITAT INC INC OPAL BLOOD 57624 LEANDRO REEVES COUNT [address] [facility] COMPLETE INC INC AUTO&AUTO DIFRNTL WBC ECG 86709 LEANDRO FERRELL ROUTINE 7 [facility] W/LEAST P 12 LDS I&R ONLY RADIOLOGI 98305 [facility] C EXAM 7 MEDICAL MEDICAL CHEST 2 IMAGING IMAGING VIEWS ASS ASS FRONTAL&L ATERAL FIBRIN 39310 LEANDRO [address]EEEVS DGRADJ [address] [facility] PRODUCTS INC INC D-DIMER QUAL/SEMI COMFORT ECG 04223 LEANDRO REEVES ROUTINE 7 [facility] ECG INC INC W/LEAST 12 LDS TRCG ONLY W/O I&R ECHO 37623 [facility] 6 MEDICAL 2D SERV W/WOM-MOD FOUNDATIO E COMPL N SPEC&COLR D LIPID 61697 LEANDRO REEVES PANEL 6 [facility] INC INC BLOOD 44405 LEANDRO REEVES COUNT 6 [facility] COMPLETE INC INC AUTO&AUTO DIFRNTL WBC COLLECTIO 07040 LEANDRO REEVES N VENOUS 6 [facility] BLOOD INC INC VENIPUNCT URE COMPREHEN 16491 LEANDRO REEVES SIVE 6 [facility] [place] [address] LEANDRO REEVES THYROID 6 [facility] STIMULATI INC INC NG HORMONE TSH VAGINAL 95037 [facility] VANEGAS DELIVERY 6 PHYSICIAN VARUN ONLY S GROUP W/POSTPAR MIC CARE DELIVERY [id number] LEANDRO LEANDRO PRODUCTS [address] [facility] OF INC INC CONCEPTIO N EXTERNAL NEURAXIAL 27664 [facility] FEEBACK LABOR 6 ANESTH REE ANALG/ANE OF THE S PLND BLUE VAGINAL DELIVERY 02500 [facility] HARPEL NONSTRESS 6 PHYSICIAN CORI TEST S GROUP EVAL C/V 07097 LEANDRO REEVES AMNIOTIC 6 [facility] FLUID INC INC PROTEIN QUAL EA SPECIMEN URNLS DIP 38307 LEANDRO CHAVEZON 6 [facility] STICK/TAB INC INC LET REAGENT AUTO MICROSCOP Y URNLS DIP 95605 LEANDRO REEVES 6 [facility] STICK/TAB INC INC LET REAGENT AUTO MICROSCOP Y ECG 37291 [place] SINHA ROUTINE 6 MEDICAL NAN ECG SERV W/LEAST FOUNDATIO 12 LDS N I&R ONLY FIBRIN 26466 LEANDRO REEVES DGRADJ 6 [facility] PRODUCTS INC INC D-DIMER QUAL/SEMI COMFORT FIBRINOGE 04768 LEANDRO REEVES N 6 [facility] ACTIVITY INC INC PROTHROMB 00415 LEANDRO REEVES IN TIME 6 [facility] INC INC ECG 93386 [facility] UNIVERSIT ROUTINE 6 Y Y ECG HOSPITAL HOSPITAL W/LEAST 12 LDS TRCG ONLY W/O I&R TRANSFERA 21108 LEANDRO REEVES SE 6 [facility] ASPARTATE INC INC AMINO AST SGOT TRANSFERA 79990 LEANDRO REEVES SE 6 [facility] ALANINE INC INC AMINO ALT SGPT BLOOD 77103 LEANDRO REEVES COUNT 6 [facility] COMPLETE INC INC AUTO&AUTO DIFRNTL WBC 88704 [facility] HARPEL NONSTRESS 6 PHYSICIAN CORI TEST S GROUP BASIC 23941 LEANDRO REEVES METABOLIC 6 [facility] [place] [address] LEANDRO REEVES BLOOD/URI 6 [facility] C ACID INC INC THROMBOPL 80487 LEANDRO REEVES ASTIN 6 [facility] TIME INC INC PARTIAL PLASMA/WH OLE BLOOD CULTURE 22286 LEANDRO REEVES BACTERIAL 6 [facility] INC INC QUANTTATI VE COLONY COUNT URINE CULTURE 41855 LEANDRO REEVES BACTERIAL 6 [facility] INC INC QUANTTATI VE COLONY COUNT URINE 74634 [facility] VANEGAS NONSTRESS 6 PHYSICIAN VARUN TEST S GROUP URNLS DIP 12097 LEANDRO REEVES 6 [facility] STICK/TAB INC INC LET REAGENT AUTO MICROSCOP Y US PREG 35644 [facility] GUILHERME UTERUS 6 PHYSICIAN VARUN REAL TIME S GROUP F/U TRNSABDL PER FETUS HANDLG&/O 41212 [facility] VANEGAS R CONVEY 6 PHYSICIAN VARUN OF SPEC S GROUP FOR TR OFFICE TO LAB PARTICLE 95043 LEANDRO REEVES AGGLUTINA 6 [facility] TION INC INC SCREEN EACH ANTIBODY 72365 [facility] GUILHERME BIOPHYSIC 6 PHYSICIAN VARUN AL S GROUP PROFILE W/O NON-STRES S TESTING UNCLASSIF J3490 LEANDRO REEVES IED DRUGS 6 [facility] INC INC 22668 [facility] HARPEL NONSTRESS 6 [place] [address] LEANDRO REEVES INFUSION 6 [facility] THERAPY/P INC INC ROPHYLAXI S /DX 1ST TO 1 HR GLUCOSE 19815 [facility] POST 6 PHYSICIAN PHYSICIAN GLUCOSE S GROUP S GROUP DOSE COLLECTIO 91556 [facility] VANEGAS N 6 PHYSICIAN VARUN CAPILLARY S GROUP BLOOD SPECIMEN EVAL C/V 52990 LEANDRO REEVES AMNIOTIC 6 [facility] FLUID INC INC PROTEIN QUAL EA SPECIMEN URNLS DIP 96684 LEANDRO REEVES 6 [facility] STICK/TAB INC INC [place] Y 50913 LEANDROMURPHY REEVES NONSTRESS 6 [facility] TEST INC INC 73586 LEANDRO CHAVEZON NONSTRESS 6 [facility] TEST INC INC URNLS DIP 72392 LEANDRO REEVES 6 [facility] STICK/TAB INC INC LET REAGENT AUTO MICROSCOP Y US PREG 17755 LEANDRO LEANDRO UTERUS 6 [facility] W/DETAIL INC INC MONALISA 1ST GESTATION US PREG 54822 [facility] RUIZ UTERUS 6 MEDICAL JANE AFTER 1ST IMAGING TRIMEST ASS GESTATION IAADIADOO 17267 [place] B[place]ON 6 [place] [facility] STREPTOCO INTERNAL CCUS MED GROUP A UNCLASSIF J3490 LEANDRO REEVES IED DRUGS 6 [facility] INC INC CULTURE 21487 LEANDRO REEVES BACTERIAL 6 [facility] INC INC QUANTTATI VE COLONY COUNT URINE CULTURE 83848 LEANDRO REEVES BCT 6 [facility] ISOL&PRSM INC INC PTV ID ISOLATE EA URINE URNLS DIP 67256 LEANDRO REEVES 6 [facility] STICK/TAB INC INC LET REAGENT AUTO MICROSCOP Y SUSCEPTIB 97982 LEANDRO REEVES LTY STDY 6 [facility] ANTIMICRB INC INC IAL MICRO/AGA R DILUTJ RADIOLOGI 74539 [place] VELEZ ALL C 6 MEDICAL EXAMINATI IMAGING ON KNEE ASS 1/2 VIEWS RADIOLOGI 38092 LEANDRO REEVES C 6 [facility] EXAMINATI INC INC ON KNEE 3 VIEWS RADIOLOGI 68718 [place] VELEZ ALL C 6 MEDICAL EXAMINATI IMAGING ON ANKLE ASS 2 VIEWS RADEX 53703 LEANDRO REEVES ANKLE 6 [facility] COMPLETE INC INC MINIMUM 3 VIEWS COLLECTIO 45581 LEANDRO REEVES N VENOUS 6 [facility] BLOOD INC INC VENIPUNCT URE OBSTETRIC 65599 LEANDRO REEVES PANEL 6 [facility] INC INC ALPHA-FET 18293 LEANDRO REEVES OPROTEIN 6 [facility] SERUM INC INC GONADOTRO 87432 LEANDRO REEVES PIN 6 [facility] CHORIONIC INC INC QUANTITAT OPAL INF AGT G0432 LEANDRO REEVES AB DETECT 6 [facility] EIA TECH INC INC HIV-1&/HI [place]-2 [place] [address] LEANDRO REEVES ESTRIOL 6 [facility] INC INC US PREG 12766 [facility] VANEGAS UTERUS 5 PHYSICIAN VARUN REAL TIME S GROUP W/IMAGE DCMTN TRANSVAG IADNA 23966 LEANDRO REEVES CHLAMYDIA 5 [facility] INC INC TRACHOMAT IS AMPLIFIED PROBE TQ IADNA 42064 LEANDRO REEVES NEISSERIA [address] [facility] INC INC GONORRHOE AE AMPLIFIED PROBE TQ COLLECTIO 21081 LEANDRO REEVES N VENOUS 5 [facility] BLOOD INC INC VENIPUNCT URE COMPREHEN 70066 LEANDRO REEVES SIVE 5 [facility] [place] [address] LEANDRO REEVES THYROID 5 [facility] STIMULATI INC INC NG HORMONE TSH BLOOD 28189 LEANDRO REEVES COUNT 5 [facility] COMPLETE INC INC AUTO&AUTO DIFRNTL WBC CUL BACT 68365 LEANDRO REEVES XCPT [address] [facility] URINE INC INC BLOOD/STO OL AEROBIC ISOL BASIC 20687 ELANDRO REEVES METABOLIC [address] [facility] PANEL INC INC CALCIUM TOTAL TX MISSED 26164 LEANDRO REEVES 5 [facility] FIRST INC INC TRIMESTER SURGICAL ECG 98186 LEANDRO BERRY JR ROUTINE 5 [facility] W/LEAST P 12 LDS I&R ONLY BLOOD 70030 LEANDRO REEVES COUNT 5 [facility] COMPLETE INC INC AUTO&[place] [address] [facility], MICHAEL SURG 5 [facility] PATHOLOGY GROSS&TONY ROSCOPIC EXAM ANESTHESI 13150 [facility] NARVAEZ MICHELE A 5 ANESTH INCOMPLET OF THE E/MISSED BLUE COMPREHEN 44202 LEANDRO REEVES SIVE 5 [facility] METABOLIC INC INC PANEL URNLS DIP 09852 LEANDRO REEVES 5 [facility] STICK/TAB INC INC LET REAGENT AUTO MICROSCOP Y BLOOD 19634 LEANDRO REEVES COUNT 5 [facility] COMPLETE INC INC AUTO&AUTO DIFRNTL WBC GONADOTRO 01513 LEANDRO REEVES PIN 5 [facility] CHORIONIC INC INC QUANTITAT OPLA US PREG 47538 [facility] SARA UTERUS 5 MEDICAL JANE REAL TIME IMAGING W/IMAGE ASS DCMTN TRANSVAG US PREG 51765 [facility] SARA UTERUS 5 MEDICAL JANE REAL TIME IMAGING W/IMAGE ASS DCMTN TRANSVAG COLLECTIO 73724 LEANDRO REEVES N VENOUS 5 [facility] BLOOD INC INC VENIPUNCT URE OBSTETRIC 96586 LEANDRO REEVES PANEL 5 [facility] INC INC INF AGT G0432 LEANDRO REEVES AB DETECT 5 [facility] EIA TECH INC INC HIV-1&/HI V-2 SCR IADNA 05799 [facility] CHLAMYD[facility] TRACHOMAT IS AMPLIFIED PROBE TQ IADNA 24017 [facility] NEISSERIA [facility] GONORRHOE AE AMPLIFIED PROBE TQ CYTP 93255 [facility] LABSTARASALVADOR CERVICAL/ 5 LLC VAGINAL REQ INTERP PHYSICIAN CYTP C/V 23725 [facility], [facility] AUTO THIN 5 [facility] LYR PREPJ SCR MNL RESCR PHYS URNLS DIP 78089 [facility] STICK/TAB TH DEPT HLTH DEPT LET RGNT KORI KORI NON-AUTO W/O MICRSCP IADNA 92063 [facility] DEPT HLTH DEPT GONORRHOE KORI KORI AE AMPLIFIED PROBE TQ IADNA 64687 [facility] DEPT TH DEPT TRACHOMAT KORI KORI IS AMPLIFIED PROBE TQ CONTRACEP A4267 [facility] SUPPLY HLTH DEPT HLTH DEPT CONDOM KORI KORI MALE EACH ECG 38997 [facility] ROUTINE 4 NNAMDI ECG EMERGENCY W/LEAST PHYS 12 LDS I&R ONLY VAGINAL 08895 GUIL[facility] VANEGAS DELIVERY 4 VARUN VARUN ONLY W/POSTPAR MIC CARE NEURAXIAL 19588 ALEE PINEDA VICK[facility] 4 ANALG/ANE S PLND [place]IN[place] 7569 LEANDRO REEVES OTHER 4 [facility] INC INC OBSTETRIC LACERATIO N 83712 GU[facility] VANEGAS BIOPHYSIC 4 VARUN VARUN AL PROFILE W/O NON-STRES S TESTING CUL BACT 59877 COMBINED COMBINED XCPT 4 PHYSICIAN PHYSICIAN URINE S LA S LA BLOOD/STO OL AEROBIC ISOL DOPPLER 75645 GU[facility] VANEGAS VELOCIMET 4 VARUN VARUN RY UMBILICAL ARTERY US PREG 44524 [facility] VANEGAS UTERUS 4 VARUN VARUN REAL TIME F/U TRNSABDL PER FETUS US PREG 75593 VANEGAS VANEGAS UTERUS 4 VARUN VARUN REAL TIME F/U TRNSABDL PER FETUS 99051 [facility] VANEGAS BIOPHYSIC 4 VARUN VARUN AL PROFILE W/O NON-STRES S TESTING DOPPLER 47672 [facility] VANEGAS VELOCIMET 4 VARUN VARUN RY UMBILICAL ARTERY COLLECTIO 22008 GU[facility]ME VANEGAS N 4 VARUN VARUN CAPILLARY BLOOD SPECIMEN GLUCOSE 21643 GU[facility] VANEGAS TOLERANCE 4 VARUN VARUN TEST GTT 3 SPECIMENS 88970 MARBELLA TYSON NONSTRESS 4 CORI CORI TEST 74325 MANNIE George SHEIKHPEL NONSTRESS 3 MARBELLA CABRERA CORI TEST US PREG 70637 GUILHERME VANEGAS UTERUS 3 VARUN VARUN AFTER 1ST TRIMEST GESTATION SMR PRIM 96348 LEANDRO REEVES SRC WET 3 [facility] INC INC NFCT AGT TISS JENNIFER 15156 LEANDRO REEVES SLIDE 3 [facility] INC INC SKN/HR/NL S FNGI/ECTO PARASIT URNLS DIP 22358 LEANDRO REEVES 3 [facility] STICK/TAB INC INC LET REAGENT AUTO MICROSCOP Y URNLS DIP 22947 LEANDRO REEVES 3 [facility] STICK/TAB INC INC LET REAGENT AUTO MICROSCOP Y [place] PREG 99798 SARA SARA UTERUS 3 JANE JANE REAL TIME W/[place] [address] LEANDRO REEVES 3 [facility] UTERUS INC INC LIMITED 1/> FETUSES EVAL C/V 17500 LEANDROMURPHY REEVES AMNIOTIC [address] [facility] FLUID INC INC PROTEIN QUAL EA SPECIMEN SMR PRIM 64839 LEANDRO REEVES SRC WET 3 [facility] INC INC NFCT AGT TISS JENNIFER 75563 LEANDRO REEVES SLIDE 3 [facility] SAMPS INC INC SKN/HR/NL S FNGI/ECTO PARASIT US PREG 54299 SARA SARA UTERUS 3 JANE JANE AFTER 1ST TRIMEST 1/ GESTATION [place] PREG 47588 LEANDRO LEANDRO UTERUS 3 [facility] REAL TIME INC INC W/IMAGE DCMTN TRANSVAG URNLS DIP 46732 LEANDRO REEVES 3 [facility] STICK/TAB INC INC LET REAGENT AUTO MICROSCOP Y URNLS DIP 46108 LEANDRO REEVES 3 [facility] STICK/TAB INC INC LET REAGENT AUTO MICROSCOP Y URINE 60354 LEANDRO LEANDRO 3 [facility] TEST INC INC VISUAL COLOR CMPRSN METHS US PREG 36323 VANEGAS VANEGAS UTERUS 3 VARUN VARUN REAL TIME W/IMAGE DCMTN TRANSVAG URNLS DIP 28337 LEANDRO LEANDRO 3 [facility] STICK/TAB INC INC LET REAGENT AUTO MICROSCOP Y US PREG 11845 LEANDRO REEVES UTERUS 3 [facility] REAL TIME INC INC W/IMAGE DCMTN TRANSVAG US PREG 75239 VANEGAS VANEGAS UTERUS 3 VARUN VARUN REAL TIME W/IMAGE DCMTN TRANSVAG ANTIBODY 81938 COMBINED COMBINED CHLAMYDIA 3 PHYSICIAN PHYSICIAN S LA S LA CUL BACT 04165 COMBINED COMBINED XCPT 3 PHYSICIAN PHYSICIAN URINE S LA S LA BLOOD/STO OL AEROBIC ISOL URINE 43732 GUILHERME VANEGAS 3 VARUN VARUN TEST VISUAL COLOR CMPRSN METHS URINE 43089 LEANDRO REEVES 3 [facility] HEALTH TEST CENTER CENTER VISUAL COLOR CMPRSN METHS DEMO&/PETR 94325 KAILASH KAILASH L OF PT 2 NIKKY NIKKY UTILIZ AERSL GEN/NEB/I NHLR/IP BRNCDILAT 19196 KAILASH KAILASH RSPSE 2 NIKKY NIKKY SPMTRY PRE&POST- BRNCDILAT ADMN PERCUTANE 85391 KAILASH KAILASH OUS TESTS 2 NIKKY NIKKY W/ALLERGE LUCY EXTRACTS INTRACUTA 43056 KAILASH KAILASH NEOUS 2 NIKKY NIKKY TESTS W/ALLERGE LUCY EXTRACTS MCV4 45233 LEANDRO REEVES MENACWY 2 [facility] CONJ VACC CENTER CENTER GRPS ACYW-135 IM USE IM ADM 94314 LEANDRO REEVES PRQ ID 2 [facility] SUBQ/IM CENTER CENTER NJXS 1 VACCINE URINE 18031 LEANDRO REEVES 2 [facility] TEST INC INC VISUAL COLOR CMPRSN METHS PRESSURIZ 04210 LEANDRO REEVES ED/NONPRE 2 [facility] SSURIZED INC INC INHALATIO N TREATMENT RADIOLOGI 63632 SARA SARA C EXAM 2 JANE JANE CHEST 2 VIEWS FRONTAL&L ATERAL FRAMES V2020 FELIX DWYER PURCHASES 2 DETERMINA 52202 FELIX DWYER TION 2 REFRACTIV E STATE SPHERE V2100 [facility] YULIYA SINGLE 2 VISION PLANO +/- 4.00 PER LENS FITTING 75365 F[place] YULIYA SPECTACLE 2 S XCPT APHAKIA MONOFOCAL OPHTH 30399 FELIX DWYER MEDICAL 2 XM&EVAL COMPRHNSV ESTAB PT 1/> ANTIBODY 61759 LEANDRO REEVES IRASEMA-B 1 [facility] ARR EB INC INC VIRUS VIRAL CAPSID VCA BLOOD 94323 LEANDRO REEVES COUNT 1 [facility] COMPLETE INC INC AUTO&AUTO DIFRNTL WBC COMPREHEN 83325 LEANDRO REEVES SIVE 1 [facility] METABOLIC INC INC PANEL IMMUNOASS 22620 LEANDRO LUIS AY NFCT 1 [facility] AGT ANTB INC QUAL/SEMI COMFORT 1 STEP IM ADM 00018 LEANDRO REEVES PRQ ID 1 [facility] SUBQ/IM CENTER CENTER [place]XS 1 [place] [address] LEANDRO REEVES STREPTOCO 1 [facility] CCUS INC INC GROUP A SUSCEPTIB 29346 LEANDRO REEVES LTY STDY 1 [facility] ANTIMICRB INC INC IAL MICRO/AGA R DILUTJ CUL BACT 48448 LEANDRO REEVES XCPT 1 [facility] URINE INC INC BLOOD/STO OL AEROBIC ISOL CUL BACT 13666 LEANDRO REEVES AEROBIC 1 [facility] ADDL INC INC METHS DEFINITIV E EA ISOL RADIOLOGI 42029 [facility] SARA C 1 MEDICAL JANE EXAMINATI IMAGING ON KNEE 3 ASS VIEWS RADEX 93536 ALVIN SARA ANKLE 1 MEDICAL JANE COMPLETE IMAGING MINIMUM 3 ASS VIEWS URNLS DIP 61292 LEANDRO REEVES 1 [facility] STICK/TAB INC INC LET REAGENT AUTO MICROSCOP Y BLOOD 14583 LEANDRO REEVES COUNT 1 [facility] COMPLETE INC INC AUTO&AUTO DIFRNTL WBC 3D 56902 ALVIN SARA RENDERING 1 MEDICAL JANE W/INTERP IMAGING & ASS POSTPROCE SS SUPERVISI ON BASIC 64921 LEANDRO REEVES METABOLIC 1 [facility] PANEL INC INC CALCIUM TOTAL URINE 15704 LEANDRO REEVES 1 [facility] TEST INC [place] [address] ANTONGunjan SARA HEAD/BRAI 1 MEDICAL JAEN N W/O IMAGING CONTRAST ASS MATERIAL SPHERE V2100 ZAKI SHEFFEILD SINGLE 1 VISION PLANO +/- 4.00 PER LENS FITTING 08271 ZAKI SHEFFIELD SPECTACLE 1 S XCPT APHAKIA MONOFOCAL OPHTH 73731 ZAKI SHEFFIELD MEDICAL 1 XM&EVAL COMPRE NEW PT 1/> VST FRAMES V2020 ZAKI SHEFFIELD PURCHASES 1 DETERMINA 20032 ZAKI SHEFFIELD TION 1 REFRACTIV E STATE RADEX 82575 [facility] SARA ANKLE 0 MEDICAL JANE COMPLETE IMAGING MINIMUM 3 ASS VIEWS SIMPLE 53809 KRIS SANTIAGOHRMAN REPAIR 0 EMERGENCY III, SCALP/NEC SERVICES CONTRERAS K/AX/RAJIV T/TRUNK ASSOCIATE 2.5CM/< S CLOSURE 8659 [facility] SKIN&SUBC 0 [facility] UTANEOUS INC INC TISSUE OTHER SITES CULTURE 68043 [facility] BACTERIAL 0 [facility] INC INC QUANTTATI VE COLONY COUNT URINE URNLS DIP 19424 [facility] 0 [facility] STICK/TAB INC INC LET REAGENT AUTO MICROSCOP Y SUSCEPTIB 49866 [facility] LTY STDY 9 [facility] ANTIMICRB INC INC IAL MICRO/AGA R DILUTJ URNLS DIP 86584 [facility] 9 [facility] STICK/TAB INC INC LET REAGENT AUTO MICROSCOP Y CULTURE 34704 [facility] BCT 9 [facility] ISOL&PRSM INC INC PTV ID ISOLATE EA URINE CULTURE 15517 [facility] BACTERIAL 9 [facility] INC INC QUANTTATI VE COLONY COUNT URINE CORTISOL 41271 [facility] TOTAL 9 [facility] INC INC URNLS DIP 95428 LENA[facility] REEVES 9 [facility] STICK/TAB INC INC LET REAGENT AUTO MICROSCOP Y BLOOD 14488 [facility] COUNT 9 [facility] COMPLETE INC INC AUTO&[place] [address] [facility] THYROID 9 [facility] STIMULATI INC INC NG HORMONE TSH COMPREHEN 07503 [facility] R[facility] SIVE 9 [facility] METABOLIC INC INC PANEL US PELVIC 09178 [facility], 8 MEDICAL YUMI NONOBSTET IMAGING NIHARIKA ASSOCIATE REAL-TIME S IMAGE COMPLETE BLOOD 71540 MANNIE TYSON, COUNT 8 [place] [address] [facility] ABDOMEN 8 [facility] W/O INC INC CONTRAST MATERIAL BLOOD 04616 [facility] COUNT 8 [facility] COMPLETE INC INC AUTO&AUTO DIFRNTL WBC URNLS DIP 45990 [facility] 8 [facility] STICK/TAB INC INC LET REAGENT AUTO MICROSCOP Y BASIC 02000 [facility] R[facility] METABOLIC 8 [facility] PANEL INC INC CALCIUM TOTAL CULTURE 84660 [facility]EEV[facility] BACTERIAL 8 [facility] INC INC QUANTTATI VE COLONY COUNT URINE CT PELVIS 56789 [facility] GANSARA, W/O 8 MEDICAL YUMI CONTRAST IMAGING MATERIAL ASSOCIATE S URINE 53485 [facility] 8 [facility] TEST INC INC VISUAL COLOR CMPRSN [place] 3D 03403 [facility] SARA, RENDERING 8 MEDICAL YUMI IMAGING W/INTERP& ASSOCIATE POSTPROC S DIFF WORK STATION CLOSURE 8659 [facility] SKIN&SUBC 8 [facility] UTANEOUS INC INC TISSUE OTHER SITES OPHTH 11488 FELIX [place], JESUS 8 AMBER A AMBER A XM&EVAL COMPRE NEW PT 1/> [place] [address] [facility] JOHN, ABDOMINAL 8 MEDICAL JENNIFER P REAL IMAGING TIME ASSOCIATE W/IMAGE S LIMITED FRAMES V2020 FELIX [place], PURCHASES 8 AMBER A AMBER A SPHERE V2100 FELIX [place], SINGLE 8 AMBER A AMBER A VISION PLANO +/- 4.00 PER LENS CULTURE [address] BACTERIAL [address] [facility] QUANTTATI VE COLONY COUNT URINE BLOOD 96857 KEV VASQUEZON COUNT 8 [facility] AUTO&AUTO DIFRNTL WBC URNLS DIP 58868 KEV ANGULO 8 [facility] LET REAGENT AUTO MICROSCOP Y COLLECTIO 44851 KEV ANGULO N VENOUS 8 [facility] BLOOD [facility] VENIPUNCT URE COMPREHEN 48433 KEV ANGULO SIVE 8 [facility] METABOLIC [facility] PANEL FITTING 67137 [place], [place], SPECTACLE 8 AMBER A AMBER A S XCPT APHAKIA MONOFOCAL Encounters Encounter Start End Date Code Location Performer Type Date OFFICE 20588 [facility] OUTPATIEN 7 7 T VISIT 10 [facility] LEANDRO - 7 7 [facility] T EMERGENCY 94619 LEANDRO 7 7 [facility] DEPARTMEN [facility] T VISIT MODERATE SEVERITY EMERGENCY 01211 [facility] DEPT 7 7 PHYSICIAN VISIT S, [facility] HIGH SEVERITY& THREAT FUN OFFICE 37767 [facility] OUT[facility] 6 6 [facility] VIS[facility] INTERNAL 10 MED [facility]AN[facility] - 6 6 [facility]IEN [facility] LEANDRO - 6 6 [facility] 19907 [facility] MIS OUTPATIEN 6 6 [facility] T VISIT INTERNAL 15 MED [facility] - [facility] 6 [facility] IN[facility]IENT INC OFFICE 01734 [facility] OUT[facility] 6 6 PHYSICIAN CORI T VISIT S GROUP 15 [facility] - 6 6 [facility] - [facility] 49921 [facility] OUTPATIEN 6 6 Y T VISIT 5 HOSPITAL MINUTES OFFICE 28875 ASHLEY RIDERX OUTPATIEN 6 6 MEDICAL NAN T VISIT SERV 25 FOUNDATIO MINUTES N OFFICE 92936 [facility] VANEGAS OUTPATIEN 6 6 PHYSICIAN VARUN T VISIT S GROUP 15 MINUTES OFFICE 29798 [facility] VANE[facility]AS OUTPATIEN 6 6 PHYSICIAN VARUN T VISIT S GROUP 15 MINUTES [facility]OSP[facility] - 6 6 [facility] T [facility] - 6 6 [facility] T [facility] - 6 6 [facility] T OFFICE 12652 [facility] VANEGAS OUTPATIEN 6 6 PHYSICIAN VARUN T VISIT S GROUP 15 MINUTES OFFICE 96013 [facility] OUTPATIEN 6 6 PHYSICIAN VARUN T VISIT S GROUP 15 MINUTES OFFICE 55427 [facility] OUTPATIEN 6 6 PHYSICIAN VARUN T VISIT S GROUP 15 MINUTES [facility]OSP[facility] - 6 6 [facility] OUT[facility] INC T OFFICE 32660 [facility] OUTPATIEN 6 6 PHYSICIAN VARUN T VISIT S GROUP 15 MINUTES [facility]OSP[facility] - 6 6 [facility] OUT[facility] INC T OFFICE 23316 [facility] OUTPATIEN 6 6 PHYSICIAN VARUN T VISIT S GROUP 15 MINUTES OFFICE 96824 [facility] OUTPATIEN 6 6 PHYSICIAN VARUN T VISIT S GROUP 15 MINUTES [facility]OSP[facility] - 6 6 [facility] OUT[facility] T OFFICE 14353 [facility] OUTPATIEN 6 6 [facility] AVINASH T VISIT INTERNAL 15 MED MINUTES OFFICE 65250 [facility] OUTPATIEN 6 6 PHYSICIAN VARUN T VISIT S GROUP 15 MINUTES EMERGENCY 20130 DYLAN BONILLA 6 6 PHYSICIAN TONY DEPARTMEN S, [facility] T VISIT HIGH/URGE NT SEVERITY EMERGENCY 73085 [facility] 6 6 [facility] DEPARTMEN INC T VISIT LOW/MODER SEVERITY [facility] - 6 6 [facility] OUTPATIEN INC T EMERGENCY 42539 DYLAN BONILLA DEPT 6 6 PHYSICIAN TONY VISIT S, [facility] HIGH SEVERITY& THREAT FUNCJ EMERGENCY 52607 [facility] 6 6 [facility] DEPARTMEN [facility] T VISIT LOW/MODER SEVERITY [facility]OSP[facility] - 6 6 [facility] OUTPATIEN INC T OFFICE 43335 [facility] LU[facility]SSON OUTPATIEN 6 6 [facility] VISIT INTERNAL 15 MED MINUTES OFFICE 02370 [facility] 6 6 PHYSICIAN VARUN T VISIT S GROUP 15 MINUTES [facility]OSP[facility] - 6 6 [facility] OUTPATIEN INC T [facility] 5 5 [facility] OUTPATI[facility] INC T OFFICE 95100 [facility] ERIKA OUTPATIEN 5 5 [facility] T VISIT INTERNAL 15 MED MINUTES [facility]OSP[facility] - 5 5 [facility] INC T [facility] - 5 5 [facility] OUTPATIEN INC T EMERGENCY 67493 DYLAN JON DEPT 5 5 PHYSICIAN U MALAIKA VISIT S, [facility] HIGH SEVERITY& THREAT [facility] - 5 5 [facility] OUTPATIEN INC T EMERGENCY 36323 [facility] 5 5 [facility] DEPARTMEN INC T VISIT LOW/MODER SEVERITY [facility] - 5 5 [facility]PAT[facility] INC T [facility] - 5 5 [facility] T OFFICE 11313 [facility] 5 5 [facility] T VISIT [facility] DE[facility] DEPT 10 KORI KORI MINUTES EMERGENCY 83963 DYLAN JON 5 5 PHYSICIAN U [place] DEPARTMEN S, [facility] T VISIT MODERATE SEVERITY EMERGENCY 20883 [facility] 5 5 [facility] DEPARTMEN INC T VISIT LIMITED/M INOR PROB [facility] - 5 5 [facility] OUTPATIEN INC T EMERGENCY 84625 [facility] DE[facility] 4 4 NNAMDI VISIT EMERGENCY HIGH PHYS SEVERITY& THREAT FUNJ EMERGENCY 37832 CHAD BONILLA 4 4 [facility] DEPARTMEN T VISIT MODERATE SEVERITY EMERGENCY 60369 [facility] 4 4 [facility] DEPART[facility] INC T VISIT LOW/MODER SEVERITY [facility] - 4 4 [facility]EN [facility] T [facility] - 4 4 [facility] INPATIENT INC OFFICE 91549 VANEGASJohanna SNOWE OUTPATIEN 4 4 VARUN VARUN T VISIT 15 MINUTES OFFICE 84954 [facility] OUTPATIEN 4 4 VARUN VARUN T VISIT 15 MINUTES OFFICE 42028 [facility]AS OUTPATIEN 4 4 VARUN VARUN T VISIT 15 MINUTES OFFICE 50038 [facility]AS OUTPATIEN 4 4 VARUN VARUN T VISIT 15 MINUTES OFFICE 71116 [facility]ANE[facility]AS OUTPATIEN 4 4 VARUN VARUN T VISIT 15 MINUTES OFFICE 59184 [facility] VANE[facility]AS OUTPATIEN 4 4 VARUN VARUN T VISIT 15 MINUTES OFFICE 37392 [facility] VANEGAS OUTPATIEN 4 4 VARUN VARUN T VISIT 15 MINUTES OFFICE 48773 VANE[facility]AS VANEGAS OUTPATIEN 4 4 VARUN VARUN T VISIT 5 MINUTES OFFICE 97866 GUILHERME VANEGAS OUTPATIEN 4 4 VARUN VARUN T VISIT 15 MINUTES OFFICE 88191 [facility] VANEGAS OUTPATIEN 4 4 VARUN VARUN T VISIT 15 MINUTES OFFICE 41658 MARBELLA TYSON OUTPATIEN 4 4 CORI CORI T VISIT 15 MINUTES OFFICE 95216 [facility]ME VANEGAS OUTPATIEN 3 3 VARUN VARUN T VISIT 15 MINUTES OFFICE 14730 MANNIE TYSON OUTPATIEN 3 3 MARBELLA PERSAUD T VISIT 15 MINUTES [facility]OSPITAL [facility] - 3 3 [facility] OUTPATIEN INC T EMERGENCY 23974 PUND CHR PUND CHR 3 3 DEPARTMEN T VISIT MODERATE SEVERITY EMERGENCY 39598 [facility] 3 3 [facility] DEPARTMEN INC T VISIT LOW/MODER SEVERITY OFFICE 31058 GUILHERME VANEGAS OUTPATIEN 3 3 VARUN VARUN T VISIT 15 MINUTES OFFICE 92647 GU[facility]HERME VANEGAS OUTPATIEN 3 3 VARUN VARUN T VISIT 15 MINUTES EMERGENCY 57989 AMBER CLARK 3 3 III [facility] HIGH[facility]URGE NT SEVERITY EMERGENCY 11067 [facility] 3 3 [facility] DEPARTMEN INC T VISIT LOW/MODER SEVERITY [facility] - 3 3 [facility] OUTPATIEN INC T OFFICE 85793 GUILHERME VANEGAS OUTPATIEN 3 3 VARUN VARUN T VISIT 15 MINUTES EMERGENCY 47188 [facility] DEPT 3 3 [facility] VISIT INC HIGH SEVERITY& THREAT FUNC [facility] - 3 3 [facility] OUTPATIEN INC T EMERGENCY 81513 AMBER CLARK 3 3 III EDWIN III EDWIN DEPARTMEN T VISIT HIGH/URGE NT SEVERITY OFFICE 30822 VANE[facility]AS VANEGAS OUTPATIEN 3 3 VARUN VARUN T VISIT 15 MINUTES EMERGENCY 32848 CHAD BONILLA 3 3 TONY TONY DEPARTMEN T VISIT HIGH/URGE NT SEVERITY [facility] - 3 3 [facility] OUTPATIEN INC T EMERGENCY 53581 [facility] 3 3 [facility] DEPARTMEN INC T VISIT LOW/MODER SEVERITY EMERGENCY 62853 CHAD BONILLA 3 3 TONY TONY DEPARTMEN T VISIT HIGH/URGE NT SEVERITY EMERGENCY 48537 [facility] 3 3 [facility] DEPARTMEN INC T VISIT MODERATE SEVERITY [facility] - 3 3 [facility] OUTPATIEN INC T OFFICE 88889 GUILHERME VANEGAS OUTPATIEN 3 3 VARUN VARUN T NEW 45 MINUTES OFFICE 23418 [facility] COUCHEN 3 3 [facility] T VISIT CENTER CENTER 15 MINUTES OFFICE 50695 KAILASH KAILASH OUTPATIEN 2 2 NIKKY NIKKY T NEW 45 MINUTES OFFICE 59459 ERIKA JAMES OUTPATIEN 2 2 MICHAEL MICHAEL T VISIT 15 MINUTES OFFICE 82722 SHALINI LOYA OUTPATIEN 2 2 NAN NAN T VISIT 15 MINUTES EMERGENCY 32111 KRIS NELSON 2 2 EMERGENCY DEPARTMEN SERVICES T VISIT HIGH/URGE NT SEVERITY [facility] - 2 2 [facility] OUTPATIEN INC T EMERGENCY 98391 [facility] 2 2 [facility] DEPARTMEN INC T VISIT MODERATE SEVERITY OFFICE 47657 SHALINI LOYA OUTPATIEN 2 2 NAN NAN T VISIT 15 MINUTES OFFICE 01001 ERIKA ERIKA OUTPATIEN 2 2 MICHAEL MICHAEL T VISIT 15 MINUTES OFFICE 15723 ERIKA JAMES OUTPATIEN 1 1 MICHAEL MICHAEL T VISIT 10 MINUTES [facility]OSP[facility] - 1 1 [facility] T [facility] - 1 1 [facility] OUT[facility]IEN INC T OFFICE 92733 ERIKA ERIKA OUTPATIEN 1 1 MICHAEL RODRIGUEZ T VISIT 15 MINUTES OFFICE 18570 SHALINI LOYA OUTPATIEN 1 1 EVE PRADO T VISIT 15 MINUTES EMERGENCY 62611 KRIS CLARK 1 1 EMERGENCY III EDWIN DEPARTMEN SERVICES T VISIT HIGH/URGE NT SEVERITY [facility] - 1 1 [facility] OUTPATIEN INC T EMERGENCY 89209 [facility] 1 1 [facility] DEPARTMEN INC T VISIT LOW/MODER SEVERITY OFFICE 42315 [facility] E[facility]KA OUTPATIEN 1 1 [place] MICHAEL T VISIT INTERNAL 10 MEDI MINUTES OFFICE 51796 [facility] ERIKA OUTPATIEN 1 1 [place] MICHAEL T VISIT INTERNAL 15 MEDI MINUTES OFFICE 94737 [facility] B[facility]ON OUTPATIEN 1 1 [facility] T VISIT INTERNAL 15 MED MINUTES EMERGENCY 31438 [facility] 1 1 [facility] DEPARTMEN INC T VISIT MODERATE SEVERITY [facility]OSP[facility] - 1 1 [facility] OUTPAT[facility]EN INC T EMERGENCY 67581 KRIS BONILLA DEPT 1 1 EMERGENCY TONY VISIT SERVICES HIGH SEVERITY& THREAT FUNJ EMERGENCY 85650 KRIS KOENIG 1 1 EMERGENCY DEPARTMEN SERVICES T VISIT MODERATE SEVERITY [facility] - 1 1 [facility] OUTPAT[facility]EN INC T EMERGENCY 25639 [facility] 1 1 [facility] DEPARTMEN INC T VISIT LOW/MODER SEVERITY OFFICE 00199 [facility] ERIKA OUTPATIEN 0 0 [place] MICHAEL T VISIT INTERNAL 15 MEDI MINUTES EMERGENCY 38919 [facility] 0 0 [facility] DEPARTMEN INC T VISIT LOW/MODER SEVERITY EMERGENCY 75242 KRIS BOTELLOSantosh NELSON 0 0 EMERGENCY DEPARTMEN SERVICES T VISIT MODERATE SEVERITY [facility] - 0 0 [facility] OUTPAT[facility] INC T OFFICE 13188 [facility] E[facility]KA OUTPATIEN 0 0 ALBERTO RODRIGUEZ T VISIT INTERNAL 10 MEDI MINUTES EMERGENCY 61173 [facility] 0 0 [facility] DEPARTMEN INC T VISIT MODERATE SEVERITY EMERGENCY 31692 KRIS SANTIAGOCOREY 0 0 EMERGENCY III, DEPARTMEN SERVICES CONTRERAS T VISIT HIGH/URGE ASSOCIATE NT S SEVERITY [facility] - 0 0 [facility] OUTPATIEN INC T EMERGENCY 44952 [facility] 0 0 [facility] DEPARTMEN INC T VISIT LOW/MODER SEVERITY [facility] - 0 0 [facility] OUTPATI[facility] INC T OFFICE 83800 [facility] B[facility], OUTPATIEN 0 0 ALBERTO JED A T VISIT INTERNAL 15 MED MINUTES OFFICE 69293 [facility] MCKEMIE OUTPATIEN 0 0 ALBERTO RENDON EDWIN T VISIT INTERNAL 15 MED MINUTES [facility] - 0 0 [facility] OUTPAT[facility] INC T OFFICE 11275 [facility] SHALINI OUTPATIEN 0 0 ALBERTO PRADO T VISIT INTERNAL 15 MEDI MINUTES OFFICE 09800 [facility] MCKEMIE OUTPATIEN 9 9 ALBERTO RENDON, T VISIT INTERNAL CONTRERAS F 15 MED MINUTES [facility] - 9 9 [facility] OUTPATIEN INC T EMERGENCY 96324 [facility] 9 9 [facility] DEPARTMEN INC T VISIT LOW/MODER SEVERITY EMERGENCY 58162 KRIS SOLOMON, 9 9 EMERGENCY KRISTIE P DEPARTMEN SERVICES T VISIT MODERATE ASSOCIATE SEVERITY S OFFICE 78190 [facility], OUTPATIEN 9 9 [facility] JED A T VISIT INTERNAL 15 MED MINUTES [facility]OSPITAL [facility] - 9 9 [facility] INC T OFFICE 43601 [facility] LUÍSNELLY OUTPATIEN 9 9 ALBERTO Hull T VISIT INTERNAL 15 MED MINUTES HOSPITAL [facility] - 9 9 [facility] OUTPATIEN INC T OFFICE 92892 [facility] LUÍSNELLY OUTPATIEN 9 9 ALBERTO Hull T VISIT INTERNAL 15 MED MINUTES OFFICE 67232 [facility] TYRA OUTPATIEN 9 9 [place] KATHY T VISIT INTERNAL 10 MED MINUTES OFFICE 38787 [facility] 8 8 MARBELLA Vazquez T VISIT 15 MINUTES PERIODIC 27553 [place] EMELYDEVANTEMIE PREVENTIV 8 8 [facility] MED EST INTERNAL CONTRERAS PATIENT [facility] - 8 8 [facility] OUTPATIEN INC T OFFICE 27151 MANNIE TYSON, CONSULTAT 8 8 MARBELLA Vazquez ION NEW/ESTAB PATIENT 80 MIN EMERGENCY 07171 KAYLAN KIMBROUGH 8 8 , JEANETTE REID [facility] T VISIT HIGH/URGE NT SEVERITY EMERGENCY 71907 [facility] 8 8 [facility] INC T VISIT MODERATE SEVERITY [facility]OSPITAL [facility] - 8 8 [facility] OUTPATIEN INC T EMERGENCY 76245 [facility] 8 8 [facility]OW/MODER SEVERITY [facility] - 8 8 [facility] OUTPATIEN INC T OFFICE 31778 [facility] GHASSAN OUTPATIKAY 8 8 [place] JED Hull T VISIT INTERNAL 15 MED MINUTES HOSPITAL [facility] - 8 8 [facility] OUTPATIEN INC T EMERGENCY 58904 [place] 8 8 [facility] T VISIT LOW/MODER SEVERITY HOSPITAL [facility] 8 8 [facility] T EMERGENCY 09980 [place] [address] 8 NNAMDI Nash [facility] EMERGENCY T VISIT [facility] MODERATE SEVERITY
--- OUTSIDE RECORDS SUMMARY | 2016-09-07 16:44 | External Medical Summary Rpt ---
Author Author , Organization [employer] Address Unknown Phone Unavailable Care Team Providers Care Block Mechanic Name Role Phone CLAUDIA AYAKA, TAYLOR AYAKA Unavailable Unavailable BESSON, BESSON Unavailable Unavailable BESSON AVINASH, BESSON Unavailable Unavailable AVINASH BESSON, JED A, Unavailable Unavailable BESSON, JED A VELEZ ALL, VELEZ ALL Unavailable Unavailable [facility] Unavailable Unavailable [facility], [facility] LEON WALSH, Unavailable Unavailable LEON WALSH VARUN, [...] MANNIE R, Unavailable Unavailable HARPEL, MANNIE R [facility] Unavailable Unavailable [facility], [facility] Unavailable Unavailable [facility], [facility] Unavailable Unavailable INC, [facility] Unavailable Unavailable HOSPITAL P, [facility] KATHY MARY HARVEY, Unavailable Unavailable KATHY [facility], Unavailable Unavailable [facility] OWUSU NAN, OWUSU Unavailable Unavailable NAN WASHINGTON YULIYA, WASHINGTON YULIYA Unavailable Unavailable WASHINGTON YULIYA, WASHINGTON YULIYA Unavailable Unavailable AMBER WASHINGTON A, Unavailable Unavailable FELIX AMBER A [facility], Unavailable Unavailable [facility] SHALINI PRADO, SHALINI Unavailable Unavailable EVE LOYA NAN, SHALINI Unavailable Unavailable NAN MICHAEL RICHARD, MICHAEL Unavailable Unavailable RICHARD [facility] Unavailable Unavailable [facility], [facility] Unavailable [facility], [facility] JAMAL JR DWI, JAMAL Unavailable Unavailable JR DWI [facility] Unavailable Unavailable [facility], [facility] Unavailable Un[facility] RASHMI JANELLE, RASHMI JANELLE Unavailable Unavailable SALVADOR, SALVADOR Unavailable Unavailable [facility] Unavailable Unavailable SERVICES, [facility] KAILASH NIKKY, Unavailable Unavailable KAILASH NIKKY KAILASH NIKKY, Unavailable Unavailable KAILASH NIKKY MCKEMIE JR EDWIN, Unavailable Unavailable MCKEMIE JR EDWIN LUPEMIE , CONTRERAS Unavailable Unavailable F, ANGELA RENDON CONTRERAS F HAINES GUA, HAINES GUA Unavailable Unavailable HAINES GUA, HAINES GUA Unavailable Unavailable JENNIFER LOPEZ P, Unavailable Unavailable JOHNJENNIFER RODRIGUEZ P VICKERS EDWIN, VICKERS EDWIN Unavailable Unavailable VICKERS EDWIN, VICKERS EDWIN Unavailable Unavailable [facility], Unavailable [facility]available [facility], [facility] PUND CHR, PUND CHR Unavailable Unavailable P[facility]D CHR, PUND CHR Unavailable Unavailable [id number], Unavailable Unavailable [id number] Unavailable Unavailable [id number] [address] [id number], [facility] [id number] # [id number] SCHULSTAD, JEANETTE, Unavailable Unavailable SCHULSTAD, JEANETTE SCIFRES, SCIFRES Unavailable Unavailable SCIFRES, SCIFRES Unavailable Unavailable SOKAN BAB, SOKAN BAB Unavailable Unavailable SOTINGEANU MALAIKA, Unavailable Unavailable SOTINGEANU MALAIKA [facility] Unavailable Unavailable [facility], [facility], Unavailable Unavailable [facility] Unavailable Unavailable DEPT [facility] DEPT [facility] Unavailable Unavailable [facility] KORI WEHRMAN III EDWIN, Unavailable Unavailable WEHRMAN III EDWIN WEHRMAN III EDWIN, Unavailable Unavailable WEHRMAN III EDWIN SANTIAGOHRCOREY IIICONTRERAS, Unavailable Unavailable AMBER IIICONTRERAS, DENISE CHASE Unavailable Unavailable Purpose Continuity of Care Document - 04-22-2007 through 2016 Problems Code Diagnosis DOS Provider Status B309 VIRAL 08-06-2016 SCIFRES CONJUNCTIVI TIS UNSPECIFIED I10 ESSENTIAL 04-30-2016 [facility] GASTRO-ESOP 04-30-2016 [facility] P WITHOUT ESOPHAGITIS R079 CHEST PAIN 04-30-2016 [place] [id number] ADVERS EFF 02-28-2016 [facility] UNS RX [facility]S [facility] BIO INTERNAL SUBSTANCES MED INIT ENC R002 PALPITATION 12-12-2015 [facility] E6601 MORBID 12-04-2015 [facility]ERE [facility] OBESITY DUE INC TO EXCESS CALORIES Z0000 ENCOUNTER 12-04-2015 [facility] GEN ADULT [facility] MED EXAM INC W/O ABNORMAL FIND O1092 UNS 10-07-2015 [facility] PRE-EXISTIN [facility] G INC HYPERTENSIO N COMP CHILDBIRTH [id number] L & D COMP 10-07-2015 [facility] CORD AROUND [facility] NECK W/O INC COMPRS NA/UNS O80 ENCOUNTER 10-07-2015 [facility] FULL-TERM GROUP UNCOMPLICAT ED DELIVERY I98549 OBESITY 10-07-2015 [facility]PLICATIN [facility] G INC THIRD TRIMESTER Z370 SINGLE LIVE 10-07-2015 [facility] Z3A40 40 WEEKS 10-07-2015 [facility] GESTATION [facility] OF INC Z6844 BODY MASS 10-07-2015 [facility] INDEX BMI [facility] 60.0-69.9 INC ADULT Z3483 ENC 10-04-2015 [facility] SUPERVISION PHYSICIANS OTH NORMAL GROUP 3 TRIMESTER O471 FALSE LABOR 10-03-2015 [facility] AT/AFTER PHYSICIANS 37 GROUP COMPLETED WEEKS GEST Z3A39 39 WEEKS 10-03-2015 [facility]ATION [facility] OF INC F60344 OTHER SPEC 10-02-2015 [facility] RELATED COND 3RD TRIMESTER O9989 OTH DZ & 10-02-2015 [place] [facility] SERV PREG [facility] CHILDBIRTH PUERPERIUM R51 HEADACHE 10-02-2015 [employer] MEDICAL SERV FOUNDATION Z331 10-02-2015 [place] [facility] INCIDENTAL [facility] Z3480 ENC 09-26-2015 [facility] SUPERVISION PHYSICIANS OTH NORMAL GROUP PREG UNS TRIMESTER O4703 FALSE LABOR 09-13-2015 [facility] BEFORE 37 PHYSICIANS CMPLETE GROUP WEEKS GEST 3RD TRI Z3A36 36 WEEKS 09-13-2015 [facility] GESTATION [facility] OF INC [id number] MATERNAL 09-11-2015 [facility] CARE EXCESS PHYSICIANS GROUP GROWTH 3RD TRI NA/UNS R220 LOCALIZED 09-05-2015 [facility] SWELLING [facility] MASS AND INC LUMP HEAD Z3A35 35 WEEKS 09-05-2015 [facility]STATION [facility] OF INC O71435 ABNORMAL 07-12-2015 [facility] GLUCOSE PHYSICIANS COMPLICATIN GROUP G K79230 OTHER SPEC 07-07-2015 [facility] RELATED INC COND UNS TRIMESTER Z3A00 WEEKS OF 07-07-2015 [facility] GESTATION [facility] OF INC NOT SPECIFIED J59608 OTHER SPEC 06-17-2015 [facility] RELATED INC COND 2ND TRIMESTER O6003 06-17-2015 [facility] LABOR PHYSICIANS WITHOUT GROUP DELIVERY THIRD TRIMESTER R1030 LOWER 06-17-2015 [facility] ABDOMINAL [facility] PAIN INC UNSPECIFIED Z3A24 24 WEEKS 06-17-2015 [facility] OF INC Z3492 ENC 05-28-2015 [facility] UNS 2 TRIMESTER Z36 ENCOUNTER 05-28-2015 [facility] FOR [facility] INC SCREENING OF MOTHER Z3A21 21 WEEKS 05-28-2015 [facility]ING ASS J029 ACUTE 05-24-2015 [facility] INTERNAL UNSPECIFIED MED R29586 UNSPECIFIED 05-10-2015 [facility] ASTHMA [facility] UNCOMPLICAT INC ED N3000 ACUTE 05-10-2015 [facility] CYSTITIS [facility], WITHOUT PLLC HEMATURIA N390 URINARY 05-10-2015 [facility] TRACT [facility], INFECTION PLLC SITE NOT SPECIFIED Z3A20 20 WEEKS 05-10-2015 [facility] OF INC G83920 PAIN IN 05-08-2015 [facility] RIGHT KNEE [facility] Q17463 PAIN IN 05-08-2015 [place] RIGHT ANKLE MEDICAL IM[facility]ING ASS P9491IN SPRAIN 05-08-2015 [facility] UNSPECIFIED PHYSICIANS, SITE RT PLLC KNEE INITIAL ENCNTR C3572VK UNS INJURY 05-08-2015 [place] RT LOWER MEDICAL LEG INITIAL IMAGING ASS ENCOUNTER M20673R SPRAIN 05-08-2015 [facility] UNSPEC PHYSICIANS, LIGAMENT PLLC ROGHT ANKLE INITIAL ENC F37279T UNSPECIFIED 05-08-2015 [place] INJURY MEDICAL RIGHT ANKLE IMAGING ASS INITIAL ENCOUNTER Z3A19 19 WEEKS 05-08-2015 [facility] OF INC L739 FOLLICULAR 04-26-2015 [facility] DISORDER [facility] UNSPECIFIED INTERNAL MED O33624 UTERINE 02-28-2015 [facility] SIZE-DATE PHYSICIANS DISCREPANCY GROUP FIRST TRIMESTER J351 HYPERTROPHY 01-22-2015 [facility] OF TONSILS [place] INTERNAL MED L309 DERMATITIS 01-22-2015 [facility] UNSPECIFIED [place] INTERNAL MED R0600 DYSPNEA 01-22-2015 [facility] UNSPECIFIED [place] [place] INTERNAL MED R0982 POSTNASAL 01-22-2015 [facility] DRIP [facility] [place] INTERNAL MED 632 MISSED 12-04-2014 [facility] 73506 INCOMPLETE 12-04-2014 [facility] AB WITHOUT MENTION COMP 4019 UNSPECIFIED 12-03-2014 [facility] ESSENTIAL [facility] HYPERTENSIO INC N 16861 ASTHMA, 12-03-2014 [facility]NSPECIFIED [facility] , INC UNSPECIFIED STATUS 75421 UNSPEC 12-03-2014 [place] HEMORRHAGE [facility]ICAL EARLY IMAGING ASS ANTEPARTUM 80077 OTHER 12-03-2014 [facility] STEELED PHYSICIANS, COMPLICATIO PLLC N ANTEPARTUM V221 SUPERVISION 11-13-2014 [facility] OF OTHER [facility] NORMAL INC V2881 ENCOUNTER 11-13-2014 [place] FOR MEDICAL ANATOMIC IMAGING ASS SURVEY 84638 PAP SMER 11-08-2014 [facility] CERV W/LW LLC GRADE SQUAMOUS INTRAEPITH LES V745 SCREENING 11-08-2014 [facility] EXAMINATION LLC FOR VENEREAL DISEASE V016 CONTACT 10-19-2014 [facility] WITH OR DISTRICT EXPOSURE TO [facility] DEPT VENEREAL KORI DISEASES 0340 STREPTOCOCC 08-17-2014 [facility] GIL [facility], THROAT PLLC 68857 OTHER CHEST 11-21-2013 [facility] 36249 PHLEBITIS&T 09-03-2013 [facility] HROMBOPHLEB [facility] SUP VEINS INC UPPER EXTREM 4519 PHLEBITIS&T 09-03-2013 CHAD TONY HROMBOPHLEB ITIS OF UNSPECIFIED SITE 650 NORMAL 07-21-2013 VICKERS EDWIN DELIVERY 43633 1-DEG 07-21-2013 GU[facility] VARUN [place] [address] FIRST-DEGRE 07-21-2013 [facility] E PERINEAL [facility] LACERATION INC WITH DELIVERY V270 OUTCOME OF 07-21-2013 [facility] DELIVERY [facility] SINGLE INC LIVEBORN V220 SUPERVISION 07-18-2013 [facility] VARUN OF NORMAL FIRST 52570 EXCESS 06-14-2013 [facility] VARUN GROWTH AFFECT MGMT MOTH ANTPRTM 50416 POLYHYDRAMN 05-23-2013 [facility] VARUN IOS ANTEPARTUM COMPLICATIO N 61055 ABNORMAL 05-08-2013 [facility] VARUN MATERNAL GLUCOSE TOLERANCE ANTEPARTUM 25145 OTHER 03-31-2013 [facility] CORI THREATENED LABOR, ANTEPARTUM V283 ENCOUNTER 03-09-2013 [facility] BOND ROUTINE SCREEN MALFORMATIO N ULTRASONIC 5990 URINARY 03-05-2013 [facility] TRACT [facility] INFECTION INC SITE NOT SPECIFIED 7881 DYSURIA 03-05-2013 [facility] 85030 OTHER 02-02-2013 WEHRMAN III SPECIFIED EDWIN DISORDERS OF BLADDER 84690 UNSPEC PROB 02-02-2013 [facility] ASSOC JANE W/AMNIOTIC CAVITY&MEMB ANTPRTM 7851 PALPITATION 02-02-2013 [facility] S [facility] INC V1505 PERSONAL 02-02-2013 [facility] HISTORY OF [facility] ALLERGY TO INC OTHER FOODS V7231 ROUTINE 02-02-2013 WEHRMAN III GYNECOLOGIC EDWIN AL EXAMINATION 4139 OTHER AND 01-23-2013 [facility] UNSPECIFIED [facility] ANGINA INC PECTORIS 79173 UNSPECIFIED 01-23-2013 WEHRMAN III VAGINITIS EDWIN AND VULVOVAGINI TIS 51046 OTH 01-23-2013 [facility] CONGENITAL/ JANE ACQ ABNORM CERV ANTPRTM COND/COMP 72084 ABDOMINAL 01-23-2013 WEHRMAN III PAIN, EDWIN UNSPECIFIED SITE V222 01-23-2013 [facility] STATE, JANE INCIDENTAL 37407 OTH CURRENT 01-17-2013 [facility] MAT CONDS [facility] CLASSIFIABL INC E ELSW ANTPRTM 7242 LUMBAGO 01-17-2013 [facility] INC 39818 ABDOMINAL 01-17-2013 CHAD TONY PAIN OTHER SPECIFIED SITE 63287 SPOTTING 01-13-2013 [facility] BOND COMP ANTEPARTUM COND/COMP 6268 OTH D/O 01-12-2013 [facility] TONY MENSTRUATIO N&OTH ABN BLEED FE GNT TRACT 26953 THREATENED 01-12-2013 [facility] , [facility] ANTEPARTUM INC 71182 UNSPECIFIED 01-12-2013 [facility] HYPERTENSIO INC N ANTEPARTUM V148 PERSONAL 01-12-2013 [facility] HISTORY [facility] ALLERGY OTH INC SPEC MEDICINAL AGTS V1501 PERSONAL 01-12-2013 [facility] OF [facility] ALLERGY TO INC PEANUTS V1502 PERSONAL 01-12-2013 [facility] OF [facility] ALLERGY TO INC MILK PRODUCTS V1504 PERSONAL 01-12-2013 [facility] H[facility]ORY OF [facility] ALLERGY TO INC SEAFOOD 66844 OBESITY, 12-21-2012 [facility] VARUN UNSPECIFIED V7242 12-21-2012 V[facility]AS VARUN EXAMINATION OR TEST POSITIVE RESULT V2689 OTHER 12-05-2012 [facility] NE SPECIFIED [facility] MANAGEMENT 4770 ALLERGIC 07-30-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 RHINITIS NIKKY DUE TO POLLEN 4772 ALLERGIC 07-30-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 RHINITIS NIKKY DUE TO ANIMAL HAIR AND DANDER 4778 ALLERGIC 07-30-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 RHINITIS NIKKY DUE TO OTHER ALLERGEN 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 20421 EXTRINSIC 07-30-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 ASTHMA, NIKKY UNSPECIFIED V727 DIAGNOSTIC 07-30-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 SKIN AND NIKKY SENSITIZATI ON TESTS 9164 HIP THI 06-26-2011 ERIKA LEG&ANK MICHAEL INSECT BITE NONVENOMOUS W/O INF 67326 PAIN IN 05-11-2011 SHALINI PRADO JOINT, LOWER LEG V069 NEED PROPH 05-07-2011 [facility] NE VACCINATION HEALTH W/UNSPEC CENTER COMB VACCINE 4660 ACUTE 04-18-2011 [facility] BRONCHITIS [facility] INC 490 BRONCHITIS 04-18-2011 [facility] NOT EMERGENCY SPECIFIED SERVICES ACUTE OR CHRONIC 7862 COUGH 04-18-2011 [facility] JANE 462 ACUTE 04-13-2011 SHALINI PRADO PHARYNGITIS V720 EXAMINATION 04-13-2011 [place] YULIYA OF EYES AND VISION 3829 UNSPECIFIED 04-02-2011 ERIKA OTITIS MICHAEL MEDIA V259 UNSPECIFIED 02-25-2011 ERIKA MICHAEL CONTRACEPTI VE MANAGEMENT 17839 ACUTE 01-23-2011 SHALINI PRADO SEROUS OTITIS MEDIA 41246 PAIN IN 11-26-2010 [place] JOINT, MEDICAL ANKLE AND IMAGING ASS FOOT 8449 SPRAIN&STRA 11-26-2010 [facility] IN OF EMERGENCY UNSPECIFIED SERVICES SITE OF KNEE&LEG 65611 UNSPECIFIED 11-26-2010 [facility] SITE OF EMERGENCY ANKLE SERVICES SPRAIN AND STRAIN 4619 ACUTE 07-28-2010 [facility] SINUSITIS, [facility] UNSPECIFIED INTERNAL MEDI 7820 DISTURBANCE 07-08-2010 [facility] OF SKIN VALLEY SENSATION INTERNAL MED 3449 UNSPECIFIED 07-05-2010 [facility] PARALYSIS EMERGENCY SERVICES 3671 MYOPIA 05-29-2010 ZAKI SHEFFIELD 27614 REGULAR 05-29-2010 ZAKI SHEFFIELD ASTIGMATISM 5206 DISTURBANCE 03-28-2010 EKN S IN TOOTH [place] ERUPTION 6264 IRREGULAR [...] ABN INTERNAL BLEED FE MEDI GNT TRACT 45591 UNSPECIFIED 01-01-2009 [facility] INFECTIVE [facility] OTITIS INTERNAL EXTERNA MED 4659 ACUTE URIS 11-17-2008 [facility] OF [facility] UNSPECIFIED INC SITE V719 OBSERVATION 10-10-2008 [facility] FOR [facility] UNSPECIFIED INTERNAL SUSPECTED MED CONDITION 7840 HEADACHE 09-11-2008 [facility] INTERNAL MED 77995 OTHER 08-29-2008 [facility] [...] INTERNAL HEALTH MED CHECK 6259 UNSPEC 08-05-2007 [facility] W/FEMALE ASSOCIATES GENITAL ORGANS V780 SCREENING 07-29-2007 MANNIE Vazquez FOR IRON MARBELLA CABRERA DEFICIENCY ANEMIA 19514 MORBID 07-19-2007 SCHULSTAD, OBESITY JEANETTE 77405 NAUSEA 07-19-2007 SCHULSTAD, ALONE JEANETTE 29104 ABDOMINAL 07-19-2007 SCHULSTAD, PAIN RIGHT JEANETTE LOWER QUADRANT 61960 ABDOMINAL 05-06-2007 [facility] PAIN, [facility] GENERALIZED INTERNAL MED 3670 HYPERMETROP 05-02-2007 HIGINIO [place] 52695 ABDOMINAL 05-02-2007 [place] PAIN RIGHT MEDICAL UPPER IMAGING [facility] 38911 DIARRHEA 05-01-2007 [facility] INC [...] 18 -0 -0 .0 00 TE ti VT 50 7- 9- 00 01 ve OL [...] 18 -1 -1 .0 00 TE ti VT 50 0- 2- 00 01 ve OL 77 20 20 17 AI OL 10 17 17 92 D 1 33 PH FU AR MA MA RA CY TE 5 #3 93 MG 8 TA B BI 00 03 04 30 30 00 RI Ac SO 37 -0 -1 .0 00 TE ti VT 80 9- 4- 00 01 ve OL 52 20 20 17 AI OL 30 17 17 44 D 1 52 PH FU AR MA MA RA CY TE 5 #3 93 MG 8 TA B BI 00 01 02 30 30 00 RI Ac SO 18 -2 -2 .0 00 TE ti VT 50 2- 4- 00 01 ve OL [...] 18 -1 -1 .0 00 TE ti VT 50 2- 3- 00 01 ve OL 77 20 20 16 AI OL 10 16 17 21 D 1 58 PH FU AR MA MA RA CY TE 5 #3 93 MG 8 TA B NA 00 10 10 2 30 30 RI 90 MC Ac DO 09 -1 -1 .0 TE 35 KE ti LO 34 7- 7- 00 56 UT ve L 23 20 20 AI E 20 50 11 11 D JR 1 PH MG AR [place] MA LL TA CY IA BL M ET 03 F 93 8 # 03 93 OR 50 10 10 2 28 28 RI 90 MC Ac TH 45 -1 -1 .0 TE 35 KE ti O 80 7- 7- 00 57 UT ve TR 25 20 20 AI E I- 11 11 11 D JR CY 5 PH CL AR WI EN MA LL CY IA LO M 03 F TA 93 BL 8 ET # 03 93 NA 00 07 09 2 30 30 RI 89 Ac DO 09 -2 -1 .0 TE 21 KE ti LO 34 5- 8- 00 12 UT ve L 23 20 20 AI E 20 50 11 11 D JR 1 PH MG AR WI MA LL TA CY IA BL M ET 03 F 93 8 # 03 93 OR 50 03 09 5 28 28 RI 87 Ac TH 45 -2 -1 .0 TE 71 KE ti O 80 9- 3- 00 22 UT ve TR 25 20 20 AI E I- 11 11 11 D JR CY 5 PH CL AR WI EN MA LL CY IA LO M 03 F TA 93 BL 8 ET # 03 93 NA 00 07 08 2 30 30 RI 89 MC Ac DO 09 -2 -2 .0 TE 21 KE ti LO 34 5- 1- 00 12 UT ve L 23 20 20 AI E 20 50 11 11 D JR 1 PH MG AR WI MA LL TA CY IA BL M ET 03 F 93 8 # 03 93 OR 50 03 08 5 28 28 RI 87 MC Ac TH 45 -2 -0 .0 TE 71 KE ti O 80 9- 9- 00 22 UT ve TR 25 20 20 AI E I- 11 11 11 D JR CY 5 PH CL AR WI EN MA LL CY IA LO M 03 F TA 93 BL 8 ET # 03 93 NA 00 07 07 2 30 30 RI 89 MC Ac DO 09 -2 -2 .0 TE 21 KE ti LO 34 5- 5- 00 12 UT ve L 23 20 20 AI E 20 50 11 11 D JR 1 PH MG AR [place] MA LL TA CY IA BL M ET 03 F 93 8 # 03 93 OR 50 03 07 5 28 28 RI 87 MC Ac TH 45 -2 -0 .0 TE 71 KE ti O 80 9- 9- 00 22 UT ve TR 25 20 20 AI E I- 11 11 11 D JR CY 5 PH CL AR WI EN MA LL CY IA LO M 03 F TA 93 BL 8 ET # 03 93 NA 00 04 06 2 30 30 RI 88 MC Ac DO 09 -2 -2 .0 TE 04 KE ti LO 34 2- 0- 00 61 UT ve L 23 20 20 AI E 20 50 11 11 D JR 1 PH MG AR [place] MA LL TA CY IA BL M ET 03 F 93 8 # 03 93 OR 50 03 06 5 28 28 RI 87 Ac TH 45 -2 -0 .0 TE 71 KE ti O 80 9- 8- 00 22 UT ve TR 25 20 20 AI E I- 11 11 11 D JR CY 5 PH CL AR WI EN MA LL CY IA LO M 03 F TA 93 BL 8 ET # 03 93 NA 00 04 05 2 30 30 RI 88 Ac DO 09 -2 -2 .0 TE 04 KE ti LO 34 2- 3- 00 61 UT ve L 23 20 20 AI E [...] KE ti 21 9- 4- 00 22 UT ve 25 20 20 AI E 11 11 11 D JR 5 PH AR WI MA LL CY IA M 03 F 93 8 # 03 93 NA 00 04 04 2 30 30 RI 88 MC Ac DO 09 -2 -2 .0 TE 04 KE ti LO 34 2- 2- 00 61 UT ve L 23 20 20 AI E 20 50 11 11 D JR 1 PH MG AR [place] MA LL TA CY IA BL M ET 03 F 93 8 # 03 93 00 03 03 5 28 28 RI 87 Ac 06 -2 -2 .0 TE 71 KE ti 21 9- 9- 00 22 UT ve 25 20 20 AI E 11 11 11 D JR 5 PH AR WI MA LL CY IA M 03 F 93 8 # 03 93 NA 00 01 03 2 30 30 RI 86 Ac DO 09 -2 -2 .0 TE 75 KE ti LO 34 4- 4- 00 71 UT ve L 23 20 20 AI E 20 50 11 11 D JR 1 PH MG AR WI MA LL TA CY IA BL M ET 03 F 93 8 # 03 93 00 11 02 5 28 28 RI 85 Ac 06 -1 -2 .0 TE 99 KE ti 21 1- 3- 00 42 UT ve 25 20 20 AI E 11 10 11 D JR 5 PH AR WI MA LL CY IA M 03 F 93 8 # 03 93 NA 00 01 02 2 30 30 RI 86 Ac DO 09 -2 -2 .0 TE 75 KE ti LO 34 4- 2- 00 71 UT ve L 23 20 20 AI E [...] 20 AI LI 30 11 11 D UT N 5 PH CH 50 AR AE 0 MA L MG CY S CA 03 PS 93 UL 8 E # 03 93 NA 00 01 01 2 30 30 RI 86 Ac DO 09 -2 -2 .0 TE 75 KE ti LO 34 4- 4- 00 71 UT ve L 23 20 20 AI E 20 50 11 11 D JR 1 PH MG AR WI MA LL TA CY IA BL M ET 03 F 93 8 # 03 93 00 11 01 5 28 28 RI 85 Ac 06 -1 -2 .0 TE 99 KE ti 21 1- 3- 00 42 UT ve 25 20 20 AI E 11 [...] KE ti 21 1- 5- 00 42 UT ve 25 20 20 AI E 11 10 10 D JR 5 PH AR WI MA LL CY IA M 03 F 93 8 # 03 93 NA 00 07 12 5 30 30 RI 84 MC Ac DO 09 -2 -2 .0 TE 29 KE ti LO 34 6- 3- 00 96 UT ve L 23 20 20 AI E 20 50 10 10 D JR 1 PH MG AR WI MA LL TA CY IA BL M ET 03 F 93 8 # 03 93 00 11 11 5 28 28 RI 85 MC Ac 06 -1 -2 .0 TE 99 KE ti 21 1- 8- 00 42 UT ve 25 20 20 AI E 11 10 10 D JR 5 PH AR WI MA LL CY IA M 03 F 93 8 # 03 93 NA 00 07 11 5 30 30 RI 84 MC Ac DO 09 -2 -2 .0 TE 29 KE ti LO 34 6- 6- 00 96 UT ve L 23 20 20 AI E 20 50 10 10 D JR 1 PH MG AR WI MA LL TA CY IA BL M ET 03 F 93 8 # 03 93 AM 00 11 11 20 10 RI 85 MC Ac OX 78 -1 -1 .0 TE 77 KE ti IC 15 1- 1- 00 79 UT ve IL 06 20 20 AI E LI 10 10 10 D JR N 1 PH 87 AR WI 5 MA LL MG CY IA M TA 03 F BL 93 ET 8 # 03 93 60 11 11 12 4 RI 85 MC Ac 25 -1 -1 0. TE 77 KE ti 80 1- 1- 00 80 UT ve 23 20 20 0 AI E [...] ti LO 34 6- 9- 00 96 UT ve L 23 20 20 AI E [...] ti LO 34 6- 0- 00 96 UT ve L 23 20 20 AI E [...] ti LO 34 6- 2- 00 96 UT ve L 23 20 20 AI E 20 50 10 10 D JR 1 PH MG AR [place] MA LL TA CY IA BL M ET 03 F 93 8 # 03 93 NA 00 07 07 5 30 30 RI 84 MC Ac DO 37 -2 -2 .0 TE 29 KE ti LO 80 6- 6- 00 96 UT ve L 02 20 20 AI E [...] 20 AI IN 30 10 10 D UT E 1 PH CH PA AR AE M MA L 25 CY S MG 03 93 CA 8 P # 03 93 JIMÉNEZ 00 06 06 14 7 RI 83 GA Ac LF 60 -2 -2 .0 TE 95 IN ti AM 35 5- 6- 00 31 EY ve ET 78 20 20 AI HO 12 10 10 D UT XA 8 PH CH ZO AR AE LE MA L -T CY S MP 03 DS 93 8 TA # BL 03 ET 93 NA 00 04 06 2 30 30 RI 83 MC Ac DO 37 -2 -2 .0 TE 09 KE ti LO 80 3- 5- 00 64 UT ve L 02 20 20 AI E 20 80 10 10 D JR 1 PH MG AR WI MA LL TA CY IA BL M ET 03 F 93 8 # 03 93 NA 00 04 05 2 30 30 RI 83 MC Ac DO 37 -2 -2 .0 TE 09 KE ti LO 80 3- 5- 00 64 UT ve L 02 20 20 AI E [...] ti MC 20 7- 7- 00 81 UT ve IN 06 20 20 AI E OL 43 10 10 D JR ON 6 PH E AR [place] 0. MA LL 1% CY IA M CR 03 F EA 93 M 8 # 03 93 NA 00 04 04 2 30 30 RI 83 MC Ac DO 37 -2 -2 .0 TE 09 KE ti LO 80 3- 3- 00 64 UT ve L 02 20 20 AI E 20 80 10 10 D JR 1 PH MG AR WI MA LL TA CY IA BL M ET 03 F 93 8 # 03 93 NA 00 01 03 2 30 30 RI 82 MC Ac DO 37 -2 -2 .0 TE 71 KE ti LO 80 1- 5- 00 55 UT ve L 02 20 20 AI E 20 80 10 10 D JR 1 PH MG AR [place] MA LL TA CY IA BL M ET 03 F 93 8 # 03 93 NA 00 01 01 00 30 30 RI 81 MC Ac DO 37 -2 -2 .0 TE 81 KE ti LO 80 1- 8- 00 46 UT ve L 02 20 20 AI E 20 80 10 10 D JR 1 PH MG AR [place] M LL TA #3 IA BL 93 M ET 8 F NA 00 07 12 05 30 30 RI 79 MC Ac DO 37 -2 -3 .0 TE 32 KE ti LO 80 7- 1- 00 99 UT ve L 02 20 20 AI E 20 80 09 09 D JR 1 PH MG AR [place] M LL TA #3 IA BL 93 M ET 8 F NA 00 07 12 04 30 30 RI 79 MC Ac DO 37 -2 -0 .0 TE 32 KE ti LO 80 7- 3- 00 99 UT ve L 02 20 20 AI E 20 80 09 09 D JR 1 PH MG AR [place] M LL TA #3 IA BL 93 M ET 8 F NA 00 07 11 03 30 30 RI 79 Ac DO 37 -2 -0 .0 TE 32 KE ti LO 80 7- 5- 00 99 UT ve L 02 20 20 AI E 20 80 09 09 D JR 1 PH MG AR [place] M LL TA #3 IA BL 93 M ET 8 F OF 61 10 10 00 5. 10 RI 80 MC Ac LO 31 -1 -2 00 TE 39 KE ti XA 40 3- 2- 0 51 UT ve CI 01 20 20 AI E N 50 09 09 D JR 0. 5 PH 3% [place] M LL EA #3 IA R [address] 8 F OP S YA 50 10 10 00 28 28 RI 80 MC Ac Z 41 -1 -2 .0 TE 39 KE ti 28 90 3- 2- 00 52 UT ve 40 20 20 AI E TA 50 09 09 D JR BL 3 PH ET AR [place] M LL #3 IA 93 M 8 F CE 00 10 10 00 20 7 RI 80 MC Ac FD 78 -1 -2 .0 TE 39 KE ti IN 12 3- 2- 00 50 UT ve IR 17 20 20 AI E 66 09 09 D JR 30 0 PH 0 AR WI MG M LL #3 IA CA 93 M PS 8 F UL E NA 00 07 10 02 30 30 RI 79 MC Ac DO 37 -2 -0 .0 TE 32 KE ti LO 80 7- 8- 00 99 UT ve L 02 20 20 AI E 20 80 09 09 D JR 1 PH MG AR [place] M LL TA #3 IA BL 93 M ET 8 F NA 00 07 09 01 30 30 RI 79 MC Ac DO 37 -2 -1 .0 TE 32 KE ti LO 80 7- 0- 00 99 UT ve L 02 20 20 AI E [...] ti AM 35 5- 3- 00 14 UT ve ET 78 20 20 AI E HO 12 09 09 D JR XA 8 PH ZO AR WI LE M LL -T #3 IA MP 93 M 8 F DS TA BL ET NA 00 07 08 00 30 30 RI 79 MC Ac DO 37 -2 -1 .0 TE 32 KE ti LO 80 7- 3- 00 99 UT ve L 02 20 20 AI E [...] M TA #3 BL 93 ET 8 VT 00 02 03 00 8. 2 RI [...] Procedure DOS Code Location Performer Comment CREATINE 15763 LEANDRO REEVES KINASE 7 [facility] TOTAL INC INC URINE 89942 LEANDRO REEVES 7 [facility] TEST INC INC VISUAL COLOR CMPRSN METHS COMPREHEN 06794 LEANDRO REEVES SIVE 7 [facility] METABOLIC INC INC PANEL CREATINE 71838 LEADNRO REEVES KINASE MB 7 [facility] FRACTION INC INC ONLY URNLS DIP 69836 LEANDRO REEVES 7 [facility] STICK/TAB INC INC [place] [address] LEANDRO REEVES TROPONIN 7 [facility] QUANTITAT INC INC OPAL BLOOD 83835 LEANDRO REEVES COUNT 7 [facility] COMPLETE INC INC AUTO&AUTO DIFRNTL WBC ECG 85911 LEANDRO FERRELL ROUTINE 7 [facility] W/LEAST P 12 LDS I&R ONLY RADIOLOGI 87082 [facility] C EXAM 7 MEDICAL MEDICAL CHEST 2 IMAGING IMAGING VIEWS ASS ASS FRONTAL&L ATERAL FIBRIN 18858 LEANDRO REEVES DGRADJ 7 [facility] PRODUCTS INC INC D-DIMER QUAL/SEMI COMFORT ECG 35339 LEANDRO REEVES ROUTINE 7 [facility] ECG INC INC W/LEAST 12 LDS TRCG ONLY W/O I&R ECHO 83208 [facility] 6 MEDICAL 2D SERV W/WOM-MOD FOUNDATIO E COMPL N SPEC&COLR D LIPID 50850 LEANDRO REEVES PANEL 6 [facility] INC INC BLOOD 12468 LEANDRO REEVES COUNT 6 [facility] COMPLETE INC INC AUTO&AUTO DIFRNTL WBC COLLECTIO 36730 LEANDRO REEVES N VENOUS 6 [facility] BLOOD INC INC VENIPUNCT URE COMPREHEN 65962 LEANDRO REEVES SIVE 6 [facility] [facility] [place] [address] LEANDRO REEVES THYROID 6 [facility] STIMULATI INC INC NG HORMONE TSH VAGINAL 61750 [facility] VANEGAS DELIVERY 6 PHYSICIAN VARUN ONLY S GROUP W/POSTPAR MIC CARE DELIVERY [id number] LEANDRO LEANDRO PRODUCTS 6 [facility] OF INC INC CONCEPTIO N EXTERNAL NEURAXIAL 50996 [facility] FEEBACK LABOR 6 ANESTH REE ANALG/ANE OF THE S PLND BLUE VAGINAL DELIVERY 14033 [facility] HARPEL NONSTRESS 6 PHYSICIAN CORI TEST S GROUP EVAL C/V 64309 LEANDRO REEVES AMNIOTIC 6 [facility] FLUID INC INC PROTEIN QUAL EA SPECIMEN URNLS DIP 80584 LEANDRO CHAVEZON 6 [facility] STICK/TAB INC INC LET REAGENT AUTO MICROSCOP Y URNLS DIP 98663 LEANDRO REEVES 6 [facility] STICK/TAB INC INC LET REAGENT AUTO MICROSCOP Y ECG 90477 [place] SINHA ROUTINE 6 MEDICAL NAN ECG SERV W/LEAST FOUNDATIO 12 LDS N I&R ONLY FIBRIN 55347 LEANDRO REEVES DGRADJ 6 [facility] PRODUCTS INC INC D-DIMER QUAL/SEMI COMFORT FIBRINOGE 97410 LEANDRO REEVES N 6 [facility] ACTIVITY INC INC PROTHROMB 11839 LEANDRO REEVES IN TIME 6 [facility] INC INC ECG 49794 UNIVERSIT UNIVERSIT ROUTINE 6 Y Y ECG HOSPITAL HOSPITAL W/LEAST 12 LDS TRCG ONLY W/O I&R TRANSFERA 31366 LEANDRO REEVES SE 6 [facility] ASPARTATE INC INC AMINO AST SGOT TRANSFERA 07856 LEANDRO REEVES SE 6 [facility] ALANINE INC INC AMINO ALT SGPT BLOOD 48028 LEANDRO REEVES COUNT 6 [facility] COMPLETE INC INC AUTO&AUTO DIFRNTL WBC 65371 [facility] NONSTRESS 6 PHYSICIAN CORI TEST S GROUP BASIC 88780 LEANDRO REEVES METABOLIC 6 [facility] [place] [address] LEANDRO REEVES BLOOD/URI 6 [facility] C ACID INC INC THROMBOPL 81575 LEANDRO REEVES ASTIN 6 [facility] TIME INC INC PARTIAL PLASMA/WH OLE BLOOD CULTURE 86162 LEANDRO REEVES BACTERIAL 6 [facility] INC INC QUANTTATI VE COLONY COUNT URINE CULTURE 57462 LEANDRO REEVES BACTERIAL 6 [facility] INC INC QUANTTATI VE COLONY COUNT URINE 75890 [facility] VANEGAS NONSTRESS 6 PHYSICIAN VARUN TEST S GROUP URNLS DIP 62240 LEANDRO REEVES 6 [facility] STICK/TAB INC INC LET REAGENT AUTO MICROSCOP Y US PREG 75732 [facility] GUILHERME UTERUS 6 PHYSICIAN VARUN REAL TIME S GROUP F/U TRNSABDL PER FETUS HANDLG&/O 69481 [facility] V[facility] R CONVEY 6 PHYSICIAN VARUN OF SPEC S GROUP FOR TR OFFICE TO LAB PARTICLE 27516 LEANDRO REEVES AGGLUTINA 6 [facility] TION INC INC SCREEN EACH ANTIBODY 97992 [facility] GUILHERME BIOPHYSIC 6 PHYSICIAN VARUN AL S GROUP PROFILE W/O NON-STRES S TESTING UNCLASSIF J3490 LEANDRO REEVES IED DRUGS 6 [facility] INC INC 38793 [facility] NONSTRESS 6 [place] [address] LEANDRO REEVES INFUSION 6 [facility] THERAPY/P INC INC ROPHYLAXI S /DX 1ST TO 1 HR GLUCOSE 88745 [facility] POST 6 PHYSICIAN PHYSICIAN GLUCOSE S GROUP S GROUP DOSE COLLECTIO 18535 [facility] VANEGAS N 6 PHYSICIAN VARUN CAPILLARY S GROUP BLOOD SPECIMEN EVAL C/V 51578 LEANDRO REEVES AMNIOTIC 6 [facility] FLUID INC INC PROTEIN QUAL EA SPECIMEN URNLS DIP 92303 LEANDRO REEVES 6 [facility] STICK/TAB INC INC LET REAGENT AUTO MICROSCOP Y 87276 LEANDROMURPHY REEVES NONSTRESS 6 [facility] TEST INC INC 37911 LEANDRO CHAVEZON NONSTRESS 6 [facility] TEST INC INC URNLS DIP 38806 LEANDRO REEVES 6 [facility] STICK/TAB INC INC LET REAGENT AUTO MICROSCOP Y US PREG 54428 LEANDRO LEANDRO UTERUS 6 [facility] W/DETAIL INC INC MONALISA 1ST GESTATION US PREG 13939 [facility] RUIZ UTERUS 6 MEDICAL JANE AFTER 1ST IMAGING TRIMEST ASS GESTATION IAADIADOO 43040 [place] B[facility]ON 6 [facility] STREPTOCO INTERNAL CCUS MED GROUP A UNCLASSIF J3490 LEANDRO REEVES IED DRUGS 6 [facility] INC INC CULTURE 67995 LEANDRO REEVES BACTERIAL 6 [facility] INC INC QUANTTATI VE COLONY COUNT URINE CULTURE 83643 LEANDRO REEVES BCT 6 [facility] ISOL&PRSM INC INC PTV ID ISOLATE EA URINE URNLS DIP 73742 LEANDRO REEVES 6 [facility] STICK/TAB INC INC LET REAGENT AUTO MICROSCOP Y SUSCEPTIB 99486 LEANDRO REEVES LTY STDY 6 [facility] ANTIMICRB INC INC IAL MICRO/AGA R DILUTJ RADIOLOGI 44383 [place] VELE[facility] ALL C 6 MEDICAL EXAMINATI IMAGING ON KNEE ASS 1/2 VIEWS RADIOLOGI 64611 LEANDRO REEVES C 6 [facility] EXAMINATI INC INC ON KNEE 3 VIEWS RADIOLOGI 09812 [place] VELEZ ALL C 6 MEDICAL EXAMINATI IMAGING ON ANKLE ASS 2 VIEWS RADEX 08588 LEANDRO REEVES ANKLE 6 [facility] COMPLETE INC INC MINIMUM 3 VIEWS COLLECTIO 17585 LEANDRO REEVES N VENOUS 6 [facility] BLOOD INC INC VENIPUNCT URE OBSTETRIC 16349 LEANDRO REEVES PANEL 6 [facility] INC INC ALPHA-FET 16649 LEANDRO REEVES OPROTEIN 6 [facility] SERUM INC INC GONADOTRO 22654 LEANDRO REEVES PIN 6 [facility] CHORIONIC INC INC QUANTITAT OPAL INF AGT G0432 LEANDRO REEVSE AB DETECT 6 [facility] EIA TECH INC INC HIV-1&/HI V-2 [place] [address] LEANDRO REEVES ESTRIOL 6 [facility] INC INC US PREG 42294 [facility] V[facility] UTERUS 5 PHYSICIAN VARUN REAL TIME S GROUP W/IMAGE DCMTN TRANSVAG IADNA 47608 LEANDRO REEVES CHLAMYDIA 5 [facility] INC INC TRACHOMAT IS AMPLIFIED PROBE TQ IADNA 47160 LEANDRO REEVES NEISSERIA 5 [facility] INC INC GONORRHOE AE AMPLIFIED PROBE TQ COLLECTIO 61762 LEANDRO REEVES N VENOUS 5 [facility] BLOOD INC INC VENIPUNCT URE COMPREHEN 00254 LEANDRO REEVES SIVE 5 [facility] [place] [address] LEANDRO REEVES THYROID 5 [facility] STIMULATI INC INC NG HORMONE TSH BLOOD 17503 LEANDRO REEVES COUNT 5 [facility] COMPLETE INC INC AUTO&AUTO DIFRNTL WBC CUL BACT 10643 LEANDRO REEVES XCPT 5 [facility] URINE INC INC BLOOD/STO OL AEROBIC ISOL BASIC 27006 LEANDRO REEVES METABOLIC 5 [facility] PANEL INC INC CALCIUM [place]OTAL [place] MISSED 93684 LEANDRO REEVES 5 [facility] FIRST INC INC TRIMESTER SURGICAL ECG 09548 LEANDRO BERRY JR ROUTINE 5 [facility] W/LEAST P 12 LDS I&R ONLY BLOOD 48198 LEANDRO REEVES COUNT 5 [facility] COMPLETE INC INC AUTO&[place] [address] [facility], MICHAEL SURG 5 [facility] PATHOLOGY GROSS&TONY ROSCOPIC EXAM ANESTHESI 90473 [facility] NARVAEZ MICHELE A 5 ANESTH INCOMPLET OF THE E/MISSED BLUE COMPREHEN 01606 LEANDRO REEVES SIVE 5 [facility] METABOLIC INC INC PANEL URNLS DIP 24483 LEANDRO REEVES 5 [facility] STICK/TAB INC INC LET REAGENT AUTO MICROSCOP Y BLOOD 52507 LEANDRO REEVES COUNT 5 [facility] COMPLETE INC INC AUTO&AUTO DIFRNTL WBC GONADOTRO 43139 LEANDRO REEVES PIN 5 [facility] CHORIONIC INC INC QUANTITAT OPAL US PREG 13667 [facility] SARA UTERUS 5 MEDICAL JANE REAL TIME IMAGING W/IMAGE ASS DCMTN TRANSVAG US PREG 09400 [facility] SARA UTERUS 5 MEDICAL JANE REAL TIME IMAGING W/IMAGE ASS DCMTN TRANSVAG COLLECTIO 98714 LEANDRO REEVES N VENOUS 5 [facility] BLOOD INC INC VENIPUNCT URE OBSTETRIC 48778 LEANDRO REEVES PANEL 5 [facility] INC INC INF AGT G0432 LEANDRO REEVES AB DETECT 5 [facility] EIA TECH INC INC HIV-1&/HI V-2 SCR IADNA 91605 [facility] CHLAMYDIA 5 [facility] TRACHOMAT IS AMPLIFIED PROBE TQ IADNA 36322 [facility] NEISSERIA [facility] GONORRHOE AE AMPLIFIED PROBE TQ CYTP 34523 [facility] LABSTARASALVADOR CERVICAL/ 5 LLC VAGINAL REQ INTERP PHYSICIAN CYTP C/V 53888 [facility], [facility] AUTO THIN 5 LLC LYR PREPJ SCR MNL RESCR PHYS URNLS DIP 55105 [facility] STICK/TAB TH DEPT HLTH DEPT LET RGNT KORI KORI NON-AUTO W/O MICRSCP IADNA 10936 [facility] DEPT HLTH DEPT GONORRHOE KORI KORI AE AMPLIFIED PROBE TQ IADNA 00215 [facility] DEPT TH DEPT TRACHOMAT KORI KORI IS AMPLIFIED PROBE TQ CONTRACEP A4267 [facility] DEPT HLTH DEPT CONDOM KORI KORI MALE EACH ECG 81237 [facility] ROUTINE 4 NNAMDI ECG EMERGENCY W/LEAST PHYS 12 LDS I&R ONLY VAGINAL 97501 [facility] VANEGAS DELIVERY 4 VARUN VARUN ONLY W/POSTPAR MIC CARE NEURAXIAL 79388 ALEE PINEDA VICKERS [facility] LABOR 4 ANALG/ANE S PLND VAGINAL DELIVERY [place]PAIR OF 7569 LEANDRO REEVES OTHER 4 [facility] INC INC OBSTETRIC LACERATIO N 56994 [facility] V[facility] BIOPHYSIC 4 VARUN VARUN AL PROFILE W/O NON-STRES S TESTING CUL BACT 02252 COMBINED COMBINED XCPT 4 PHYSICIAN PHYSICIAN URINE S LA S LA BLOOD/STO OL AEROBIC ISOL DOPPLER 56774 [facility] V[facility] VELOCIMET 4 VARUN VARUN RY UMBILICAL ARTERY US PREG 10274 [facility] V[facility] UTERUS 4 VARUN VARUN REAL TIME F/U TRNSABDL PER FETUS US PREG 45064 VANEGAS VANEGAS UTERUS 4 VARUN VARUN REAL TIME F/U TRNSABDL PER FETUS 80354 [facility] BIOPHYSIC 4 VARUN VARUN AL PROFILE W/O NON-STRES S TESTING DOPPLER 47136 [facility] VELOCIMET 4 VARUN VARUN RY UMBILICAL ARTERY COLLECTIO 64622 [facility] VANEGAS N 4 VARUN VARUN CAPILLARY BLOOD SPECIMEN GLUCOSE 34702 [facility] TOLERANCE 4 VARUN VARUN TEST GTT 3 SPECIMENS 51144 MARBELLA TYSON NONSTRESS 4 CORI CORI TEST 69778 MANNIE George SHEIKHPEL NONSTRESS 3 MARBELLA CABRERA CORI TEST US PREG 81966 [facility] VANEGAS UTERUS 3 VARUN VARUN AFTER 1ST TRIMEST GESTATION SMR PRIM 86294 LEANDRO REEVES SRC WET 3 [facility] INC INC NFCT AGT TISS JENNIFER 51681 LEANDRO REEVES SLIDE 3 [facility] INC INC SKN/HR/NL S FNGI/ECTO PARASIT URNLS DIP 97310 LEANDR[facility] REEVES 3 [facility] STICK/TAB INC INC LET REAGENT AUTO MICROSCOP Y URNLS DIP 95666 LEANDR[facility] REEVES 3 [facility] STICK/TAB INC INC LET REAGENT AUTO MICROSCOP Y US PREG 09683 SARA SARA UTERUS 3 JANE JANE REAL TIME W/[place] [address] LEANDRO REEVES 3 [facility] UTERUS INC INC LIMITED 1/> FETUSES EVAL C/V 47075 LEANDROMURPHY REEVES AMNIOTIC 3 [facility] FLUID INC INC PROTEIN QUAL EA SPECIMEN SMR PRIM 17115 LEANDRO REEVES SRC WET 3 [facility] MOUNT INC INC NFCT AGT TISS JENNIFER 12665 LEANDRO REEVES SLIDE 3 [facility] SAMPS INC INC SKN/HR/NL S FNGI/ECTO PARASIT US PREG 41542 SARA SARA UTERUS 3 JANE JANE AFTER 1ST TRIMEST 1/ GESTATION US PREG 33834 LEANDRO LEANDRO UTERUS 3 [facility] REAL TIME INC INC W/IMAGE DCMTN TRANSVAG URNLS DIP 09187 LEANDRO REEVES 3 [facility] STICK/TAB INC INC LET REAGENT AUTO MICROSCOP Y URNLS DIP 47562 LEANDRO REEVES 3 [facility] STICK/TAB INC INC LET REAGENT AUTO MICROSCOP Y URINE 82286 LEANDRO LEANDRO 3 [facility] TEST INC INC VISUAL COLOR CMPRSN [place]HS [place] PREG 23871 VANEGAS VANEGAS UTERUS 3 VARUN VARUN REAL TIME W/IMAGE DCMTN TRANSVAG URNLS DIP 98025 LEANDRO LEANDRO 3 [facility] STICK/TAB INC INC LET REAGENT AUTO MICROSCOP Y US PREG 50936 LEANDRO REEVES UTERUS 3 [facility] REAL TIME INC INC W/IMAGE DCMTN TRANSVAG US PREG 87509 VANEGAS VANEGAS UTERUS 3 VRAUN VARUN REAL TIME W/IMAGE DCMTN TRANSVAG ANTIBODY 44751 COMBINED COMBINED CHLAMYDIA 3 PHYSICIAN PHYSICIAN S LA S LA CUL BACT 66637 COMBINED COMBINED XCPT 3 PHYSICIAN PHYSICIAN URINE S LA S LA BLOOD/STO OL AEROBIC ISOL URINE 34559 GUIL[facility] VANEGAS 3 VARUN VARUN TEST VISUAL COLOR CMPRSN METHS URINE 76175 LEANDRO REEVES 3 [facility] CENTER VISUAL COLOR CMPRSN METHS DEMO&/PETR 95422 KAILASH KAILASH L OF PT 2 NIKKY NIKKY UTILIZ AERSL GEN/NEB/I NHLR/IP BRNCDILAT 46215 KAILASH KAILASH RSPSE 2 NIKKY NIKKY SPMTRY PRE&POST- BRNCDILAT ADMN PERCUTANE 48540 KAILASH KAILASH OUS TESTS 2 NIKKY NIKKY W/ALLERGE LUCY EXTRACTS INTRACUTA 56413 KAILASH KAILASH NEOUS 2 NIKKY NIKKY TESTS W/ALLERGE LUCY EXTRACTS MCV4 43190 LEANDRO REEVES MENACWY 2 [facility] CONJ [facility] CENTER GRPS ACYW-135 IM USE IM ADM 33176 LEANDRO REEVES PRQ ID 2 [facility] SUBQ/IM CENTER CENTER NJXS 1 VACCINE URINE 60468 LEANDRO REEVES 2 [facility] TEST INC INC VISUAL COLOR CMPRSN METHS PRESSURIZ 29198 LEANDRO REEVES ED/NONPRE 2 [facility] SSURIZED INC INC INHALATIO N TREATMENT RADIOLOGI 59077 SARA SARA C EXAM 2 JANE JANE CHEST 2 VIEWS FRONTAL&L ATERAL FRAMES V2020 FELIX DWYER PURCHASES 2 DETERMINA 27575 FELIX DWYER TION 2 REFRACTIV E STATE SPHERE V2100 [facility] [place] YULIYA SINGLE 2 VISION PLANO +/- 4.00 PER LENS FITTING 22454 [facility] [place] YULIYA SPECTACLE 2 S XCPT APHAKIA MONOFOCAL OPHTH 04060 FELIX DWYER MEDICAL 2 XM&EVAL COMPRHNSV ESTAB PT 1/> ANTIBODY 64353 LEANDRO REEVES IRASEMA-B 1 [facility] ARR EB INC INC VIRUS VIRAL CAPSID VCA BLOOD 22124 LEANDRO REEVES COUNT 1 [facility] COMPLETE INC INC AUTO&AUTO DIFRNTL WBC COMPREHEN 24339 LEANDRO REEVES SIVE 1 [facility] METABOLIC INC INC PANEL IMMUNOASS 30334 LEANDRO LUIS AY NFCT 1 [facility] AGT ANTB INC QUAL/SEMI COMFORT 1 STEP IM ADM 50435 LEANDRO REEVES PRQ ID 1 [facility] SUBQ[facility]IM C[facility] CENTER [place]XS 1 [place] [address] LEANDRO REEVES STREPTOCO 1 [facility] CCUS INC INC GROUP A SUSCEPTIB 45160 LEANDRO REEVES LTY STDY 1 [facility] ANTIMICRB INC INC IAL MICRO/AGA R DILUTJ CUL BACT 97133 LEANDRO REEVES XCPT 1 [facility] URINE INC INC BLOOD/STO OL AEROBIC ISOL CUL BACT 73385 LEANDRO REEVES AEROBIC 1 [facility] ADDL INC INC METHS DEFINITIV E EA ISOL RADIOLOGI 50263 [facility] SARA C 1 MEDICAL JANE EXAMINATI IMAGING ON KNEE 3 ASS VIEWS RADEX 76642 ALVIN SARA ANKLE 1 MEDICAL JANE COMPLETE IMAGING MINIMUM 3 ASS VIEWS URNLS DIP 90584 LEANDRO REEVES 1 [facility] STICK/TAB INC INC LET REAGENT AUTO MICROSCOP Y BLOOD 24205 LEANDRO REEVES COUNT 1 [facility] COMPLETE INC INC AUTO&AUTO DIFRNTL WBC 3D 53574 ALVIN SARA RENDERING 1 MEDICAL JANE W/INTERP IMAGING & ASS POSTPROCE SS SUPERVISI ON BASIC 26105 LEANDRO REEVES METABOLIC 1 [facility] PANEL INC INC CALCIUM TOTAL URINE 43490 LEANDRO REEVES 1 [facility] TEST INC [place] [address] ANTONGunjan SARA HEAD/BRAI 1 MEDICAL JANE N W/O IMAGING CONTRAST ASS MATERIAL SPHERE V2100 ZAKI SHEFFIELD SINGLE 1 VISION PLANO +/- 4.00 PER LENS FITTING 21736 ZAKI SHEFFIELD SPECTACLE 1 S XCPT APHAKIA MONOFOCAL OPHTH 13170 ZAKI SHEFFIELD MEDICAL 1 XM&EVAL COMPRE NEW PT 1/> VST FRAMES V2020 ZAKI SHEFFIELD PURCHASES 1 DETERMINA 08418 ZAKI SHEFFIELD TION 1 REFRACTIV E STATE RADEX 78071 [facility] SARA ANKLE 0 MEDICAL JANE COMPLETE IMAGING MINIMUM 3 ASS VIEWS SIMPLE 66991 KRIS SANTIAGOHRMAN REPAIR 0 EMERGENCY III, SCALP/NEC SERVICES CONTRERAS K/AX/RAJIV T/TRUNK ASSOCIATE 2.5CM/< S CLOSURE 8659 LEANDRO REEVES SKIN&SUBC 0 [facility] UTANEOUS INC INC TISSUE OTHER SITES CULTURE 40352 LEANDRO REEVES BACTERIAL 0 [facility] INC INC QUANTTATI VE COLONY COUNT URINE URNLS DIP 01297 LEANDRO REEVES 0 [facility] STICK/TAB INC INC LET REAGENT AUTO MICROSCOP Y SUSCEPTIB 79203 LEANDRO REEVES LTY STDY 9 [facility] ANTIMICRB INC INC IAL MICRO/AGA R DILUTJ URNLS DIP 39686 LEANDRO REEVES 9 [facility] STICK/TAB INC INC LET REAGENT AUTO MICROSCOP Y CULTURE 05484 LEANDRO REEVES BCT 9 [facility] ISOL&PRSM INC INC PTV ID ISOLATE EA URINE CULTURE 92438 LEANDRO REEVES BACTERIAL 9 [facility] INC INC QUANTTATI VE COLONY COUNT URINE CORTISOL 73247 LEANDRO REEVES TOTAL 9 [facility] INC INC URNLS DIP 99518 LEANDRO REEVES 9 [facility] STICK/TAB INC INC LET REAGENT AUTO MICROSCOP Y BLOOD 85455 LEANDRO REEVES COUNT 9 [facility] COMPLETE INC INC AUTO&[place] [address] LEANDRO REEVES THYROID 9 [facility] STIMULATI INC INC NG HORMONE TSH COMPREHEN 97845 LEANDRO REEVES SIVE 9 [facility] METABOLIC INC INC PANEL US PELVIC 73200 [facility] GANSARA, 8 MEDICAL YUMI NONOBSTET IMAGING NIHARIKA ASSOCIATE REAL-TIME S IMAGE COMPLETE BLOOD 49016 MANNIE TYSON, COUNT 8 [place] [address] LEANDRO REEVES ABDOMEN 8 [facility] W/O INC INC CONTRAST MATERIAL BLOOD 99506 LEANDRO REEVES COUNT 8 [facility] COMPLETE INC INC AUTO&AUTO DIFRNTL WBC URNLS DIP 64369 LEANDRO REEVES 8 [facility] STICK/TAB INC INC LET REAGENT AUTO MICROSCOP Y BASIC 02479 LEANDRO REEVES METABOLIC 8 [facility] PANEL INC INC CALCIUM TOTAL CULTURE 48111 LEANDRO REEVES BACTERIAL 8 [facility] INC INC QUANTTATI VE COLONY COUNT URINE CT PELVIS 23347 [facility] GANSARA, W/O 8 MEDICAL YUMI CONTRAST IMAGING MATERIAL ASSOCIATE S URINE 60411 LEANDRO REEVES 8 [facility] TEST INC INC VISUAL COLOR CMPRSN METHS 3D 20684 [facility] SARA, RENDERING 8 MEDICAL YUMI IMAGING W/INTERP& ASSOCIATE POSTPROC S DIFF WORK STATION CLOSURE 8659 LEANDRO REEVES SKIN&SUBC 8 [facility] UTANEOUS INC INC TISSUE OTHER SITES OPHTH 27487 FELIX [place], JESUS 8 AMBER A AMBER A XM&EVAL COMPRE NEW PT 1/> [place] [address] [facility] JOHN, ABDOMINAL 8 MEDICAL JENNIFER P REAL IMAGING TIME ASSOCIATE W/IMAGE S LIMITED FRAMES V2020 FELIX [place], PURCHASES 8 AMBER A AMBER A SPHERE V2100 FELIX [place], SINGLE 8 AMBER A AMBER A VISION PLANO +/- 4.00 PER LENS CULTURE 09855 KEV ANGULO BACTERIAL [address] [facility] QUANTTATI VE COLONY COUNT URINE BLOOD 27259 KEV VASQUEZON COUNT 8 [facility] AUTO&AUTO DIFRNTL WBC URNLS DIP 28078 KEV ANGULO 8 [facility] STICK/TAB HOSPITAL HOSPITAL LET REAGENT AUTO MICROSCOP Y COLLECTIO 12537 KEV ANGULO N VENOUS 8 [facility] BLOOD [facility] VENIPUNCT URE COMPREHEN 56938 KEV ANGULO SIVE 8 [facility] METABOLIC [facility] PANEL FITTING 12640 [place], [place], SPECTACLE 8 AMBER A AMBER A S XCPT APHAKIA MONOFOCAL Encounters Encounter Start End Date Code Location Performer Type Date OFFICE 84713 [facility] 7 7 T VISIT 10 [facility] LEANDRO - 7 7 [facility] T EMERGENCY 65934 [facility]ANDR[facility] 7 7 [facility] DEPARTMEN [facility] T VISIT MODERATE SEVERITY EMERGENCY 57882 [facility] DEPT 7 7 PHYSICIAN VISIT S, PLLC HIGH SEVERITY& THREAT FUN OFFICE 46191 [place] [facility] OUT[facility] 6 6 [facility] T VISIT INTERNAL 10 MED [facility] LEANDR[facility] - 6 6 [facility] LEANDRO - 6 6 [facility] OUT[facility]IEN [facility] T OFFICE 41245 [facility] MIS OUTPATIEN 6 6 [facility] T VISIT INTERNAL 15 MED [facility] LEANDRO - 6 6 [facility]IENT [facility] 99428 [facility] 6 PHYSICIAN CORI T VISIT S GROUP 15 [facility] LEANDRO - 6 6 [facility] 62701 [facility] OUTPATIEN 6 6 Y T VISIT 5 HOSPITAL MINUTES OFFICE 37952 ASHLEY RIDERX OUTPATIEN 6 6 MEDICAL NAN T VISIT SERV 25 FOUNDATIO MINUTES N OFFICE 56831 [facility] OUTPATIEN 6 6 PHYSICIAN VARUN T VISIT S GROUP 15 MINUTES OFFICE 99978 [facility] OUTPATI[facility] 6 6 PHYSICIAN VARUN T VISIT S GROUP 15 MINUTES [facility]OSPITAL [facility] - 6 6 [facility] T [facility] - 6 6 [facility] T [facility] - 6 6 [facility] INC T OFFICE 00562 [facility] OUTPATIEN 6 6 PHYSICIAN VARUN T VISIT S GROUP 15 MINUTES OFFICE 70531 [facility] OUTPATIEN 6 6 PHYSICIAN VARUN T VISIT S GROUP 15 MINUTES OFFICE 42341 [facility] OUTPATIEN 6 6 PHYSICIAN VARUN T VISIT S GROUP 15 MINUTES [facility]OSPITAL [facility] - 6 6 [facility] OUTPATI[facility] INC T OFFICE 40468 [facility] OUTPATIEN 6 6 PHYSICIAN VARUN T VISIT S GROUP 15 MINUTES HOSPITAL [facility]O - 6 6 [facility] OUTPATIEN INC T OFFICE 84776 [facility] OUTPATIEN 6 6 PHYSICIAN VARUN T VISIT S GROUP 15 MINUTES OFFICE 47988 [facility] OUTPATIEN 6 6 PHYSICIAN VARUN T VISIT S GROUP 15 MINUTES HOSPITAL [facility]DRO - 6 6 [facility] OUT[facility] INC T OFFICE 97816 [facility] [facility] OUTPATIEN 6 6 [facility] T VISIT INTERNAL 15 MED MINUTES OFFICE 37982 [facility] OUTPATIEN 6 6 PHYSICIAN VARUN T VISIT S GROUP 15 MINUTES EMERGENCY 67564 DYLAN BONILLA 6 6 PHYSICIAN TONY DEPARTMEN S, [facility] T VISIT HIGH/URGE NT SEVERITY EMERGENCY 43309 [facility] 6 6 [facility] DEPARTMEN INC T VISIT LOW/MODER SEVERITY [facility] - 6 6 [facility] OUT[facility] INC T EMERGENCY 23182 DYLAN BONILLA DEPT 6 6 PHYSICIAN TONY VISIT S, [facility] HIGH SEVERITY& THREAT FUNCJ EMERGENCY 05419 [facility] 6 6 [facility] DEPARTMEN [facility] T VISIT LOW/MODER SEVERITY HOSPITAL [facility]ANDRO - 6 6 [facility] OUTPATIEN INC T OFFICE 61620 [place] [facility] OUTPATIEN 6 6 [facility] VISIT INTERNAL 15 MED MINUTES OFFICE 68771 [facility]ER[facility] 6 6 PHYSICIAN VARUN T VISIT S GROUP 15 MINUTES HOSPITAL [facility] - 6 6 [facility] T [facility] - 5 5 [facility] T OFFICE 99777 [facility] OUTPATIEN 5 5 [facility] T VISIT INTERNAL 15 MED MINUTES [facility]OSP[facility]ANDRO - 5 5 [facility] T [facility] - 5 5 [facility] INC T EMERGENCY 85088 DYLAN JON DEPT 5 5 PHYSICIAN U MALAIKA VISIT S, [facility] HIGH SEVERITY& THREAT [facility] HOSPITAL [facility]ANDR[facility] - 5 5 [facility] OUTPATIEN INC T EMERGENCY 64798 [facility] 5 5 [facility] DEPARTMEN INC T VISIT LOW/MODER SEVERITY [facility]OSP[facility] - 5 5 [facility] T [facility] - 5 5 [facility] T OFFICE 95189 [facility] 5 5 [facility] T VISIT [facility] DEPT [facility]PT 10 KORI KORI MINUTES EMERGENCY 74105 DYLAN JON 5 5 PHYSICIAN U MALAIKA DEPARTMEN S, [facility] T VISIT MODERATE SEVERITY EMERGENCY 40146 [facility] 5 5 [facility] T VISIT LIMITED/M INOR PROB HOSPITAL [facility] - 5 5 [facility] OUTPATIEN INC T EMERGENCY 66881 [facility] DEPT 4 4 NNAMDI VISIT EMERGENCY HIGH PHYS SEVERITY& THREAT FUNJ EMERGENCY [address] [facility] DEPARTMEN T VISIT MODERATE SEVERITY EMERGENCY 91155 [facility] 4 4 [facility] T VISIT LOW/MODER SEVERITY [facility] - 4 4 [facility] T [facility] - 4 4 [facility] INPATIENT INC OFFICE 80035 VANEGASJohanna SNOWE OUTPATIEN 4 4 VARUN VARUN T VISIT 15 MINUTES OFFICE 88585 VANEGAS VANEGAS OUTPATIEN 4 4 VARUN VARUN T VISIT 15 MINUTES OFFICE 50085 VANEGAS VANEGAS OUTPATIEN 4 4 VARUN VARUN T VISIT 15 MINUTES OFFICE 24650 VANEGAS VANEGAS OUTPATIEN 4 4 VARUN VARUN T VISIT 15 MINUTES OFFICE 18627 VANEGAS VANEGAS OUTPATIEN 4 4 VARUN VARUN T VISIT 15 MINUTES OFFICE 63301 VANEGAS VANEGAS OUTPATIEN 4 4 VARUN VARUN T VISIT 15 MINUTES OFFICE 40940 VANEGAS VANEGAS OUTPATIEN 4 4 VARUN VARUN T VISIT 15 MINUTES OFFICE 79039 VANEGAS VANEGAS OUTPATIEN 4 4 VARUN VARUN T VISIT 5 MINUTES OFFICE 74400 GUILHERME VANEGAS OUTPATIEN 4 4 VARUN VARUN T VISIT 15 MINUTES OFFICE 65989 GUILHERME VANEGAS OUTPATIEN 4 4 VARUN VARUN T VISIT 15 MINUTES OFFICE 98720 MARBELLA TYSON OUTPATIEN 4 4 CORI CORI T VISIT 15 MINUTES OFFICE 76533 GUILHERME VANEGAS OUTPATIEN 3 3 VARUN VARUN T VISIT 15 MINUTES OFFICE 34865 MANNIE TYSON OUTPATIEN 3 3 MARBELLA PERSAUD T VISIT 15 MINUTES HOSPITAL [facility] - 3 3 [facility] OUT[facility]IEN INC T EMERGENCY 71859 PUND CHR PUND CHR 3 3 DEPARTMEN T VISIT MODERATE SEVERITY EMERGENCY 03481 [facility] 3 3 [facility] DEPARTMEN INC T VISIT LOW/MODER SEVERITY OFFICE 62651 GUILHERME VANEGAS OUTPATIEN 3 3 VARUN VARUN T VISIT 15 MINUTES OFFICE 84507 GUILHERME VANEGAS OUTPATIEN 3 3 VARUN VARUN T VISIT 15 MINUTES EMERGENCY 97483 AMBER CLARK 3 3 [facility]URGE NT SEVERITY EMERGENCY 79577 [facility] 3 3 [facility] DEPART[facility] INC T VISIT LOW/MODER SEVERITY [facility]OSP[facility] - 3 3 [facility] OUTPATIEN INC T OFFICE 78869 GUILHERME VANEGAS OUTPATIEN 3 3 VARUN VARUN T VISIT 15 MINUTES EMERGENCY 52807 [facility] DEPT 3 3 [facility] VISIT INC HIGH SEVERITY& THREAT FUNC HOSP[facility] - 3 3 [facility] OUTPATIEN INC T EMERGENCY 78642 AMBER CLARK 3 3 III EDWIN III EDWIN DEPARTMEN T VISIT HIGH/URGE NT SEVERITY OFFICE 10758 VANEGAS VANEGAS OUTPATIEN 3 3 VARUN VARUN T VISIT 15 MINUTES EMERGENCY 15038 CHAD BONILLA 3 3 TONY TONY DEPARTMEN T VISIT HIGH/URGE NT SEVERITY [facility]OSPITAL [facility] - 3 3 [facility] OUTPATIEN INC T EMERGENCY 67693 [facility]DR[facility] 3 3 [facility] DEPARTMEN INC T VISIT LOW/MODER SEVERITY EMERGENCY 65240 CHAD BONILLA 3 3 TONY TONY DEPARTMEN T VISIT HIGH/URGE NT SEVERITY EMERGENCY 58108 [facility] 3 3 [facility] DEPARTMEN INC T VISIT MODERATE SEVERITY [facility]OSPITAL [facility] - 3 3 [facility] OUTPATIEN INC T OFFICE 74431 GUILHERME VANEGAS OUTPATIEN 3 3 VARUN VARUN T NEW 45 MINUTES OFFICE 25933 LEANDRO COUCHEN 3 3 [facility] 15 MINUTES OFFICE 75858 KAILASH KAILASH OUTPATIEN 2 2 NIKKY NIKKY T [place] 45 MINUTES OFFICE 70742 ERIKA JAMES OUTPATIEN 2 2 MICHAEL MICHAEL T VISIT 15 MINUTES OFFICE 46032 SHALINI LOYA OUTPATIEN 2 2 NAN NAN T VISIT 15 MINUTES EMERGENCY 66646 KRIS NELSON 2 2 EMERGENCY DEPARTMEN SERVICES T VISIT HIGH/URGE NT SEVERITY [facility]OSPITAL [facility] - 2 2 [facility] OUT[facility]IEN INC T EMERGENCY 14394 [facility] 2 2 [facility] DEPARTMEN INC T VISIT MODERATE SEVERITY OFFICE 08827 SHALINI LOYA OUTPATIEN 2 2 NAN NAN T VISIT 15 MINUTES OFFICE 10669 ERIKA ERIKA OUTPATIEN 2 2 MICAHEL MICHAEL T VISIT 15 MINUTES OFFICE 71633 ERIKA JAMES OUTPATIEN 1 1 MICHAEL MICHAEL T VISIT 10 MINUTES HOSPITAL [facility] - 1 1 [facility] T [facility] - 1 1 [facility] OUT[facility] INC T OFFICE 88225 ERIKA ERIKA OUTPATIEN 1 1 MICHAEL RODRIGUEZ T VISIT 15 MINUTES OFFICE 59064 SHALINI LOYA OUTPATIEN 1 1 EVE PRADO T VISIT 15 MINUTES EMERGENCY 56206 KRIS CLARK 1 1 EMERGENCY III EDWIN DEPARTMEN SERVICES T VISIT HIGH/URGE NT SEVERITY [facility]OSPITAL [facility] - 1 1 [facility] OUT[facility] INC T EMERGENCY 09653 [facility] 1 1 [facility] INC T VISIT LOW/MODER SEVERITY OFFICE 66390 [place] ERIKA OUTPATIEN 1 1 [place] MICHAEL T VISIT INTERNAL 10 MEDI MINUTES OFFICE 69867 [place] ERIKA OUTPATIEN 1 1 [place] MICHAEL T VISIT INTERNAL 15 MEDI MINUTES OFFICE 08332 [place] BESSON OUTPATIEN 1 1 [facility] T VISIT INTERNAL 15 MED MINUTES EMERGENCY 17822 [facility] 1 1 [facility] DEPART[facility] INC T VISIT MODERATE SEVERITY HOSPITAL [facility] - 1 1 [facility] OUTPATIEN INC T EMERGENCY 73844 KRIS BONILLA DEPT 1 1 EMERGENCY TONY VISIT SERVICES HIGH SEVERITY& THREAT FUNJ EMERGENCY 81112 KRIS KOENIG 1 1 EMERGENCY DEPARTMEN SERVICES T VISIT MODERATE SEVERITY [facility]OSPITAL [facility] - 1 1 [facility] INC T EMERGENCY 04311 [facility] 1 1 [facility] DEPART[facility] INC T VISIT LOW/MODER SEVERITY OFFICE 44751 [place] ERIKA OUTPATIEN 0 0 [place] MICHAEL T VISIT INTERNAL 15 MEDI MINUTES EMERGENCY 26693 [facility] 0 0 [facility] DEPARTMEN INC T VISIT LOW/MODER SEVERITY EMERGENCY 39244 KRIS BOTELLOSantosh NELSON 0 0 EMERGENCY DEPARTMEN SERVICES T VISIT MODERATE SEVERITY [facility]OSP[facility] - 0 0 [facility] OUTPATIEN INC T OFFICE 36883 [place] ERIKA OUTPATIEN 0 0 ALBERTO RODRIGUEZ T VISIT INTERNAL 10 MEDI MINUTES EMERGENCY 41799 [facility] 0 0 [facility] DEPARTMEN INC T VISIT MODERATE SEVERITY EMERGENCY 48399 KRIS SANTIAGOCOREY 0 0 EMERGENCY III, DEPARTMEN SERVICES CONTRERAS T VISIT HIGH/URGE ASSOCIATE NT S SEVERITY [facility]OSPITAL [facility] - 0 0 [facility] OUTPATIEN INC T EMERGENCY 24703 [facility] 0 0 [facility] DEPARTMEN INC T VISIT LOW/MODER SEVERITY [facility] - 0 0 [facility] OUTPATI[facility] INC T OFFICE 96396 [place] BESSON, OUTPATIEN 0 0 ALBERTO JED A T VISIT INTERNAL 15 MED MINUTES OFFICE 85088 [place] MCKEMIE OUTPATIEN 0 0 ALBERTO RENDON EDWIN T VISIT INTERNAL 15 MED MINUTES HOSPITAL [facility] - 0 0 [facility] OUT[facility] INC T OFFICE 71391 [place] SHALINI OUTPATIEN 0 0 ALBERTO PRADO T VISIT INTERNAL 15 MEDI MINUTES OFFICE 32744 [place] MCKEMIE OUTPATIEN 9 9 ALBERTO RENDON, T VISIT INTERNAL CONTRERAS F 15 MED MINUTES HOSPITAL [facility] - 9 9 [facility] OUTPATIEN INC T EMERGENCY 70965 [facility] 9 9 [facility] DEPARTMEN INC T VISIT LOW/MODER SEVERITY EMERGENCY 71511 KRIS SOLOMON, 9 9 EMERGENCY KRISTIE P DEPARTMEN SERVICES T VISIT MODERATE ASSOCIATE SEVERITY S OFFICE 28377 [place] BESSON, OUTPATIEN 9 9 [place] JED A T VISIT INTERNAL 15 MED MINUTES HOSPITAL [facility] - 9 9 [facility] OUTPATIEN INC T OFFICE 67553 [place] LUÍSNELLY OUTPATIEN 9 9 ALBERTO Hull T VISIT INTERNAL 15 MED MINUTES HOSPITAL [facility] - 9 9 [facility] OUTPATIEN INC T OFFICE 39661 [place] LUÍSNELLY OUTPATIEN 9 9 ALBERTO Hull T VISIT INTERNAL 15 MED MINUTES OFFICE 35727 [place] TYRA OUTPATIEN 9 9 [place] KATHY T VISIT INTERNAL 10 MED MINUTES OFFICE 35573 [facility] MARBELLA Vazquez T VISIT 15 MINUTES PERIODIC 74356 [place] EMELYDEVANTEMIE PREVENTIV 8 8 [facility], E MED EST INTERNAL CONTRERAS PATIENT MED [facility] LEANDRO - 8 8 [facility] OUTPATIEN INC T OFFICE 04088 MANNIE TYSON, CONSULTAT 8 8 MARBELLA Vazquez ION NEW/ESTAB PATIENT 80 MIN EMERGENCY 10157 KAYLAN KIMBROUGH 8 8 , JEANETTE REID [facility] T VISIT HIGH/URGE NT SEVERITY EMERGENCY 10982 [facility]DR[facility] 8 8 [facility] INC T VISIT MODERATE SEVERITY HOSPITAL [facility] - 8 8 [facility] OUTPATIEN INC T EMERGENCY 88918 LE[facility]DR[facility] 8 8 [facility]IS[facility] LOW/MODER SEVERITY [facility]OSP[facility] - 8 8 [facility] OUTPATIEN INC T OFFICE 41122 [place] GHASSAN OUTPATIKAY 8 8 [place] JED Hull T VISIT INTERNAL 15 MED MINUTES HOSPITAL [facility] - 8 8 [facility] OUTPATIEN INC T EMERGENCY 24997 [place] 8 8 [facility] T VISIT LOW/MODER SEVERITY HOSPITAL [facility] 8 8 [facility] T EMERGENCY [address] [place] [address] 8 NNAMDI Nash [facility] EMERGENCY T VISIT PHYS [facility] MODERATE SEVERITY
--- OUTSIDE RECORDS SUMMARY | 2016-09-07 16:46 | External Medical Summary Rpt ---
Demographics Preferred Language Pashto Marital Status Unknown Church Affiliation Unknown Race Unknown Ethnic Group Unknown Author Author , Organization [employer] Address Unknown Phone Unavailable Purpose Continuity of Care Document - through 2016 Immunization No patient found.
--- OUTSIDE RECORDS SUMMARY | 2016-09-07 16:46 | External Medical Summary Rpt ---
Demographics Preferred Language Portuguese Marital Status Unknown Hoahaoism Affiliation Unknown Race Unknown Ethnic Group Unknown Author Author , Organization [employer] Address Unknown Phone Unavailable Purpose Continuity of Care Document - through 2016 Immunization No patient found.
--- NOTE | 2016-09-07 16:52 | Emergency Room Report ---
History of Present Illness Time Seen by 1622 Presenting Problem in Triage Pt arrived:Walked Presenting Problem:PT REPORTS "I FELT LIKE I WAS HAVING AN ASTHMA ATTACK." PT REPORTS HAS BEEN DEALING WITH ANXIETY AND DEPRESSION SINCE GIVING TO HER SON 11 MONTHS AGO. 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 N Clinical Suspician of Infection? N Mental Status: 1 - Regular (Normal Baseline) Sepsis Risk:Low Sepsis Risk Have you (or family members/close friends) recently traveled outside the [place]? N If Yes, where/when: Have you had exposure to infectious disease within the past month? N TB? Other? Specify: Patient states she felt anxious earlier, mouth was tingling and she was breathing quickly, different from asthma attack in that she had no wheezing. Had similar episode one month ago. Is under a lot of stress at home with new baby and some other issues with the dad of another child. She feels better now. She denies SI/VH/AH. No chronic depression now or in the past. ALLERGIES Coded Allergies: latex (Mild, I-ITCHING 10/07/15) Onion (T-YEEDIW-JXSZ/THROAT 10/07/15) PEANUTS (FOOD) (From PEANUTS (FOOD/DRUG)) (K-[id number]-BUYD/THROAT 10/07/15) Shrimp (10/07/15) cinnamon (10/07/15) methylprednisolone (10/07/15) onion (10/07/15) Home Medications Reported Medications Bisoprolol Fumarate 5 MG PO DAILY #30 Albuterol Sulfate (Ventolin Hfa) 0.09 MG IH Q6HP PRN ASTHMA #18 History Medical History General CAD? No Angina: No DE: No Hypertension? Yes Hyperlipidemia? No CHF? No DVT? No PE? No COPD? No Asthma? Yes Anemia? No GERD? Yes Gastric ulcers? No GI Bleed? No Hernia? No Thyroid Problems? No Hypothyroidism? No CVA? No Seizures? No Diabetes? No Insulin Dependent: No Insulin Pump: No Home FSBS? No Renal Insuffiency? No End Stage Renal Disease? No UTI? No Stones? No BPH? No GB Disease: No Nephritic Syndrome? No Asplenia? No Hepatitis? No Sickle Cell Disease? No Arthritis? No Migraines? No Cataracts? No Glaucoma? No MRSA? No HIV? No TB? No Anxiety? Yes Depression? Yes Cancer? No More? 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 Family History Family Hx Diabetes Yes CAD Yes Hypertension Yes Hyperlipidemia No Cancer Yes TB No Social History Smoking Hx Smoker: Never Smoker Tobacco: No Alcohol Alcohol: No Review of Systems All Other Systems Reviewed and Negative Respiratory see HPI (DENIES wheezing) Cardiovascular denies no symptoms reported Psychiatric/Neurological anxiety, denies depressed Physical Exam Vital Signs Vital Signs Date Time Temp Pulse Resp B/P Pulse O2 O2 Flow FiO2 Ox Delivery Rate 09/07 1625 98.0 74 20 125/78 99 09/07 1617 98.0 74 20 125/78 99 General Appearance normal appearance, WD/WN, no apparent distress, obese Eye Exam - bilateral eye normal exam, bilateral eye PERRL, bilateral eye EOMI (no exopthalmos) Neck normal inspection, non-tender, supple, full range of motion Respiratory Status Yes: trachea midline, chest symmetrical, non tender chest. No: respiratory distress, tender on palpation, use of accessory muscles, pain on inspiration, pain on expiration, productive cough, non productive cough. Lung Sounds bilateral: normal breath sounds, lungs clear (NO wheezing). 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 No Departure Departure Time of Disposition 1731 Disposition DC Home or Self Care(routine) Clinical Impression Primary Impression: Anxiety Condition STABLE Referrals Duane Ayala MD (Family) Patient Instructions Generalized Anxiety Disorder Additional Instructions Vistaril as needed, see Dr. Ayala for follow up if persistent symptoms as you may need a daily medication Discharge Counseling Counseled pt/family regarding diagnosis, medications/RX, home care, follow up needs Prescriptions Current Visit Scripts Hydroxyzine Pamoate (Vistaril 25MG CAP) 25 MG PO Q6HP PRN anxiety #10 CAP ED Critical Care Critical Care No at 1736
--- NOTE | 2016-09-07 16:52 | Emergency Room Report ---
History of Present Illness Time Seen by 1622 Presenting Problem in Triage Pt arrived:Walked Presenting Problem:PT REPORTS "I FELT LIKE I WAS HAVING AN ASTHMA ATTACK." PT REPORTS HAS BEEN DEALING WITH ANXIETY AND DEPRESSION SINCE GIVING TO HER SON 11 MONTHS AGO. 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 N Clinical Suspician of Infection? N Mental Status: 1 - Regular (Normal Baseline) Sepsis Risk:Low Sepsis Risk Have you (or family members/close friends) recently traveled outside the [place]? N If Yes, where/when: Have you had exposure to infectious disease within the past month? N TB? Other? Specify: Patient states she felt anxious earlier, mouth was tingling and she was breathing quickly, different from asthma attack in that she had no wheezing. Had similar episode one month ago. Is under a lot of stress at home with new baby and some other issues with the dad of another child. She feels better now. She denies SI/VH/AH. No chronic depression now or in the past. ALLERGIES Coded Allergies: latex (Mild, I-ITCHING 10/07/15) Onion (P-OACQEO-RFEY/THROAT 10/07/15) PEANUTS (FOOD) (From PEANUTS (FOOD/DRUG)) (J-OSZFLR-CUXP/THROAT 10/07/15) Shrimp (10/07/15) cinnamon (10/07/15) methylprednisolone (10/07/15) onion (10/07/15) Home Medications Reported Medications Bisoprolol Fumarate 5 MG PO DAILY #30 Albuterol Sulfate (Ventolin Hfa) 0.09 MG IH Q6HP PRN ASTHMA #18 History Medical History General CAD? No Angina: No CT: No Hypertension? Yes Hyperlipidemia? No CHF? No DVT? No PE? No COPD? No Asthma? Yes Anemia? No GERD? Yes Gastric ulcers? No GI Bleed? No Hernia? No Thyroid Problems? No Hypothyroidism? No CVA? No Seizures? No Diabetes? No Insulin Dependent: No Insulin Pump: No Home FSBS? No Renal Insuffiency? No End Stage Renal Disease? No UTI? No Stones? No BPH? No GB Disease: No Nephritic Syndrome? No Asplenia? No Hepatitis? No Sickle Cell Disease? No Arthritis? No Migraines? No Cataracts? No Glaucoma? No MRSA? No HIV? No TB? No Anxiety? Yes Depression? Yes Cancer? No More? 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 Family History Family Hx Diabetes Yes CAD Yes Hypertension Yes Hyperlipidemia No Cancer Yes TB No Social History Smoking Hx Smoker: Never Smoker Tobacco: No Alcohol Alcohol: No Review of Systems All Other Systems Reviewed and Negative Respiratory see HPI (DENIES wheezing) Cardiovascular denies no symptoms reported Psychiatric/Neurological anxiety, denies depressed Physical Exam Vital Signs Vital Signs Date Time Temp Pulse Resp B/P Pulse O2 O2 Flow FiO2 Ox Delivery Rate 09/07 1625 98.0 74 20 125/78 99 09/07 1617 98.0 74 20 125/78 99 General Appearance normal appearance, WD/WN, no apparent distress, obese Eye Exam - bilateral eye normal exam, bilateral eye PERRL, bilateral eye EOMI (no exopthalmos) Neck normal inspection, non-tender, supple, full range of motion Respiratory Status Yes: trachea midline, chest symmetrical, non tender chest. No: respiratory distress, tender on palpation, use of accessory muscles, pain on inspiration, pain on expiration, productive cough, non productive cough. Lung Sounds bilateral: normal breath sounds, lungs clear (NO wheezing). 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 No Departure Departure Time of Disposition 1731 Disposition DC Home or Self Care(routine) Clinical Impression Primary Impression: Anxiety Condition STABLE Referrals Duane Ayala MD (Family) Patient Instructions Generalized Anxiety Disorder Additional Instructions Vistaril as needed, see Dr. Ayala for follow up if persistent symptoms as you may need a daily medication Discharge Counseling Counseled pt/family regarding diagnosis, medications/RX, home care, follow up needs Prescriptions Current Visit Scripts Hydroxyzine Pamoate (Vistaril 25MG CAP) 25 MG PO Q6HP PRN anxiety #10 CAP ED Critical Care Critical Care No at 1735
[2016-09-07] MEDS ORDERED: VISTARIL25 M1 PO (17:33)
[2016-09-07 17:44] VITALS: BP 125/78
== END 2016-09-07 17:44 | disposition home or self-care (01) ==
LOC: ER 16:12 → UTC 16:22 → ER 16:22
DX: F41.8 Other specified anxiety disorders (principal); I10 Essential (primary) hypertension; K21.9 Gastro-esophageal reflux disease without esophagitis

== ENCOUNTER 2017-01-28 17:45 | Emergency (ER) | payer MEDICAID ==
[~2017-01-28] VITALS: Ht 165.1 cm; Wt 154.2 kg
[~2017-01-28 17:45] MED LIST changes: +VENTOLIN H0.09 MG/Ac IH; +VISTARIL25 M1 PO
--- OUTSIDE RECORDS SUMMARY | 2017-01-28 17:50 | External Medical Summary Rpt | CCD ---
Author Author , EVELYN RIVAS Address Unknown Phone Care Team Providers Care Heavy Equipment Supervisor Name Role Phone Juventino Rodriguez Unavailable Unavailable , Juventino Leone MD, Unavailable Unavailable Kenia Dugan Unavailable Unavailable SIMA CABRERA, Jonatan Dugan III, MD Purpose Continuity of Care Document - 02-09-2012 through 2016 Problems Code Diagnosis DOS Provider Status 599.0 599.0 URIN 03-05-2013 [place] TRACT [facility] INFECTION Hospital NOS 646.83 646.83 PREG 03-05-2013 [facility] T 401.9 401.9 [facility] N NOS Hospital 493.90 493.90 02-02-2013 [place] ASTHMA, [facility] UNSPECIFIED Hospital 596.89 596.89 02-02-2013 Ward OTHER [facility] SPECIFIED Hospital DISORDERS OF BLADDER 785.1 785.1 02-02-2013 [facility] PALPITATION [facility] S [facility] V15.05 V15.05 02-02-2013 [place] ALLERGY TO [facility] OTHER FOODS Hospital 413.9 413.9 01-23-2013 [place] ANGINA [facility] Hospital NEC/NOS 648.93 648.93 OTH 01-17-2013 [facility] RTUM 724.2 724.2 01-17-2013 [facility] 640.03 640.03 01-12-2013 [facility] ART 642.93 642.93 01-12-2013 [facility] NOS-[facility] Hospital MIC V14.8 V14.8 01-12-2013 [place] HX-DRUG [facility] ALLERGY NEC Hospital V15.01 V15.01 01-12-2013 [facility] ALLERGY TO [facility] PEANUTS [facility] V15.02 V15.02 01-12-2013 [facility] ALLERGY TO [facility] MILK [facility] PRODUCTS V15.04 V15.04 01-12-2013 [facility] ALLERGY TO [facility] SEAFOOD [facility] 625.9 F41.9 ANXIETY DISORDER, UNSPECIFIED I10 ESSENTIAL (PRIMARY) HYPERTENSIO N I80.9 PHLEBITIS AND THROMBOPHLE BITIS OF UNSPECIFIED SITE Allergies, Adverse Reactions, Alerts Type Drug Allergy Food Allergy Adverse Reaction to Substance Substance Reaction Severity Methylprednisolone Unknown Unknown MILK Unknown Unknown Cinnamon Oil Unknown Unknown Peanuts U-MITRYW-AHCD/THROAT Unknown Onion E-HWSDOV-WFKP/THROAT Unknown PEANUTS (FOOD) A-UJLJRT-KRBI/THROAT Unknown Shrimp Unknown Unknown Medications Na ND Rx Da Fi Fi Am Da Di Ph RX Ph St me C No te ll ll ou ys ag ar # ys at rm s nt no ma ic us Or Da si cy ia de te s n re d AC 51 10 0 No ET 07 -2 AM 90 9- Lo IN 16 20 ng OP 19 13 er HE 9H N Ac W/ ti CO ve DE IN E #3 TA K Vital Signs 03-05-2013 23:12 Name Value Interpretat [...] 013 E ed ESTERAS 20:14 E URINE -15-2 10-20 0-5 complet SQUAMOU 013 #/hpf ed [...] E ed - 11:15 DIPSTIC K URINE 11-04-2 NEGATIV NEG complet BILIRUB 013 E ed IN - 11:15 DIPSTIC K URINE 11-04-2 NEGATIV NEG complet KETONE 013 E mg/dL ed 11:15 URINE 11-04-2 1.010 1.005-1 complet SPECIFI 013 UNK .030 ed C 11:15 GRAVITY URINE --2 NEGATIV NEG complet BLOOD 013 E ed 11:15 URINE -04-2 7.5 UNK 5.0-8.5 complet PH 013 ed 11:15 URINE -04-2 NEGATIV NEG complet PROTEIN 013 E mg/dL ed - 11:15 DIPSTIC K URINE 11-04-2 0.2 NEG complet UROBILI 013 E.U./dL ed NOGEN - 11:15 DIPSTIC K URINE -04-2 NEGATIV NEG complet NITRATE 013 E ed - 11:15 DIPSTIC K URINE 11-04-2 NEGATIV NEG complet LEUK 013 E ed ESTERAS 11:15 E URINE -04-2 OCC 0 complet RBC 013 rbc/hpf ed 11:15 URINE 11-04-2 3-5 O complet WBC 013 wbc/hpf ed 11:15 URINE 11-04-2 3-5 0-5 complet SQUAMOU 013 #/hpf ed S CELLS 11:15 B-HCG Ur Ql (01-17-2013 20:12) B-HCG --2 POSITIV NEG complet Ur Ql 013 E [...] C 22:30 equal GRAVITY to 1.005 URINE 24-2 3+ NEG complet BLOOD 013 ed 22:30 URINE 10--2 6.0 UNK 5.0-8.5 complet PH 013 ed 22:30 URINE --2 NEGATIV NEG complet PROTEIN 013 E mg/dL ed - 22:30 DIPSTIC K URINE 1024-2 0.2 NEG complet UROBILI 013 E.U./dL ed NOGEN - 22:30 DIPSTIC K URINE 10-24-2 NEGATIV NEG complet NITRATE 013 E ed - 22:30 DIPSTIC K URINE 10-24-2 NEGATIV NEG complet LEUK 013 E ed ESTERAS 22:30 E URINE 10-24-2 5-10 0 complet RBC 013 rbc/hpf ed 22:30 URINE 10-24-2 20-50 0-5 complet SQUAMOU 013 #/hpf ed S CELLS 22:30 CHLAMYDIA AND GONORRHEA TESTING (02-09-2012 10:30) Chlamyd 02-08- NEGATIV complet ia 012 E ed trachom 10:30 atis rRNA [Presen ce] in Unspeci fied specime n by Probe & target amplifi cation method Neisser 02-08-2 NEGATIV complet ia 012 E ed gonorrh 10:30 oeae rRNA [Presen ce] in Unspeci fied specime n by Probe & target amplifi cation method CHLAMYDIA AND GONORRHEA TESTING (02-09-2012 10:30) COLLECT 02-08-2 NA complet OR 012 ed 10:30 ETHNICI 02-08-2 WHITE, complet TY 012 NON-HIS ed 10:30 PANIC KIT 02-08-21 JUNE complet EXPIRAT 012 ed ION 10:30 DATE SYMPTOM 02-08-2 NO complet S 012 ed 10:30 REASON --2 VOLUNTE complet FOR 012 ER/MEDI ed REQUEST 10:30 JADIEL PROBLEM SPECIME 02-08- URINE complet N 012 ed SOURCE 10:30 PREGNAN --2 NO complet T 012 ed 10:30 CHART --2 NA complet NUMBER 012 ed 10:30 Chlamyd --2 Pending complet ia 012 ed trachom 10:30 atis rRNA [Presen ce] in Unspeci fied specime n by Probe & target amplifi cation method Neisser --2 Pending complet ia 012 ed gonorrh 10:30 oeae rRNA [Presen ce] in Unspeci fied specime n by Probe & target amplifi cation method Encounters Encounter Start End Date Code Location Performer Type Date Emergency IKE Rodriguez MD (ER) 3 20:22 3 23:13 [facility] er R. Emergency IKE Dugan (ER) 3 15:18 3 17:15 [facility] Jonatan E. Emergency IKE Dugan (ER) 3 11:11 3 13:40 [facility] Jonatan E. Emergency IKE Leone MD (ER) 3 20:12 3 21:26 [facility] Emergency IKE Leone MD (ER) 3 21:32 3 22:59 [facility]
--- OUTSIDE RECORDS SUMMARY | 2017-01-28 17:50 | External Medical Summary Rpt | CCD ---
Author Author [employer] Organization [employer] Address Unknown Phone Unavailable Purpose Continuity of Care Document - through 2016
--- OUTSIDE RECORDS SUMMARY | 2017-01-28 17:50 | External Medical Summary Rpt | CCD ---
Author Author , EVELYN RIVAS Address Unknown Phone Care Team Providers Care Superintendent Name Role Phone Juventino Rodriguez Unavailable Unavailable , Juventino Leone MD, Unavailable Unavailable Kenia Dugan Unavailable Unavailable SIMA CABRERA, Jonatan Dugan III, MD Purpose Continuity of Care Document - 02-09-2012 through 2016 Problems Code Diagnosis DOS Provider Status 599.0 599.0 URIN 03-05-2013 [place] TRACT [facility] INFECTION Hospital NOS 646.83 646.83 PREG 03-05-2013 [facility] T 401.9 401.9 [facility] NOS Hospital 493.90 493.90 02-02-2013 [place] ASTHMA, [facility] UNSPECIFIED Hospital 596.89 596.89 02-02-2013 [place] OTHER [facility] SPECIFIED Hospital DISORDERS OF BLADDER 785.1 785.1 02-02-2013 [place] PALPITATION [facility] S [facility] V15.05 V15.05 02-02-2013 [place] ALLERGY TO [facility] OTHER FOODS Hospital 413.9 413.9 01-23-2013 [place] ANGINA [facility] Hospital NEC/NOS 648.93 648.93 OTH 01-17-2013 [facility] RTUM 724.2 724.2 01-17-2013 [facility] 640.03 640.03 01-12-2013 [place] [facility] ART 642.93 642.93 01-12-2013 [facility] NOS-ANTEPAR Hospital MIC V14.8 V14.8 01-12-2013 [place] HX-DRUG [facility] ALLERGY NEC Hospital V15.01 V15.01 01-12-2013 [facility] ALLERGY TO [facility] PEANUTS [facility] V15.02 V15.02 01-12-2013 [facility] ALLERGY TO [facility] MILK [facility] PRODUCTS V15.04 V15.04 01-12-2013 [facility] ALLERGY TO [facility] SEAFOOD [facility] 625.9 F41.9 ANXIETY DISORDER, UNSPECIFIED I10 ESSENTIAL (PRIMARY) HYPERTENSIO N I80.9 PHLEBITIS AND THROMBOPHLE BITIS OF UNSPECIFIED SITE Allergies, Adverse Reactions, Alerts Type Drug Allergy Food Allergy Adverse Reaction to Substance Substance Reaction Severity Methylprednisolone Unknown Unknown MILK Unknown Unknown Cinnamon Oil Unknown Unknown Peanuts R-HDVFNA-AOUU/THROAT Unknown Onion Z-MUPJAV-TTAO/THROAT Unknown PEANUTS (FOOD) F-RSLHJW-ZCQJ/THROAT Unknown Shrimp Unknown Unknown Medications Na ND [...] Rodriguez MD (ER) 3 20:22 3 23:13 [facility] er R. Emergency IKE Dugan (ER) 3 15:18 3 17:15 [facility] Jonatan E. Emergency IKE Dugan (ER) 3 11:11 3 13:40 [facility] Jonatan E. Emergency IKE Leone MD (ER) 3 20:12 3 21:26 [facility] Emergency IKE Leone MD (ER) 3 21:32 3 22:59 [facility]
--- OUTSIDE RECORDS SUMMARY | 2017-01-28 17:50 | External Medical Summary Rpt ---
Author Author EVELYN Whiteside, [employer] Organization [employer] Address Unknown Phone Unavailable Results CHLAMYDIA AND GONORRHEA TESTING Observa Value Referen Units Interpr Notes Date tion ce etation Range COLLECT NA No No No No Feb 08 OR informa informa informa informa 2012 tion in tion in tion in tion in 10:30 source source source source AM data data data data ETHNICI WHITE, No No No No Feb 08 TY NON-HIS informa informa informa informa 2012 PANIC tion in tion in tion in tion in 10:30 source source source source AM data data data data KIT JUNE No No No No Feb 08 EXPIRAT informa informa informa informa 2012 ION tion in tion in tion in tion in 10:30 DATE source source source source AM data data data data SYMPTOM NO No No No No Feb 08 S informa informa informa informa 2012 tion in tion in tion in tion in 10:30 source source source source AM data data data data REASON VOLUNTE No No No No Feb 08 FOR ER/MEDI informa informa informa informa 2012 REQUEST JADIEL tion in tion in tion in tion in 10:30 PROBLEM source source source source AM data data data data SPECIME URINE No No No No Feb 08 N informa informa informa informa 2012 SOURCE tion in tion in tion in tion in 10:30 source source source source AM data data data data PREGNAN NO No No No No Feb 08 T informa informa informa informa 2012 tion in tion in tion in tion in 10:30 source source source source AM data data data data CHART NA No No No No Feb 08 NUMBER informa informa informa informa 2012 tion in tion in tion in tion in 10:30 source source source source AM data data data data Chlamyd NEGATIV No No No NEGATIV Feb 08 ia E informa informa informa E 2012 trachom tion in tion in tion in RESULT= 10:30 atis source source source WITHIN AM rRNA data data data NORMAL [Presen ce] in LIMITSP Unspeci OSITIVE fied specime RESULT= n by Probe & ABNORMA target LEQUIVO JADIEL amplifi RESULT= cation method INDETER MINATEU NSATISF ACTORY RESULT= INVALID Neisser NEGATIV No No No NEGATIV Feb 08 ia E informa informa informa E 2012 gonorrh tion in tion in tion in RESULT= 10:30 oeae source source source WITHIN AM rRNA data data data NORMAL [Presen ce] in LIMITSP Unspeci OSITIVE fied specime RESULT= n by Probe & ABNORMA target LEQUIVO JADIEL amplifi RESULT= cation method INDETER MINATEU NSATISF ACTORY RESULT= INVALID THE APTIMA COMBO 2 ASSAY IS NOT INTENDE D FOR THE EVALUAT ION OF SUSPECT EDSEXUA L ABUSE OR FOR OTHER MEDICO- LEGAL INDICAT IONS. FOR THOSE PATIENT S FORWHOM A FALSE POSITIV E RESULT MAY HAVE ADVERSE PSYCHO- SOCIAL IMPACT, [facility] NG.\.br \This report contain s patient informa tion that must be protect ed in accorda nce with the Health Insuran ce Portabi lity and Account ability Act. CHLAMYDIA AND GONORRHEA TESTING Observa Value Referen Units Interpr Notes Date tion ce etation Range COLLECT NA No No No No Feb 08 OR informa informa informa informa 2012 tion in tion in tion in tion in 10:30 source source source source AM data data data data ETHNICI WHITE, No No No No Feb 08 TY NON-HIS informa informa informa informa 2011 PANIC tion in tion in tion in tion in 10:30 source source source source AM data data data data KIT JUNE No No No No Feb 08 EXPIRAT informa informa informa informa 2012 ION tion in tion in tion in tion in 10:30 DATE source source source source AM data data data data SYMPTOM NO No No No No Feb 08 S informa informa informa informa 2012 tion in tion in tion in tion in 10:30 source source source source AM data data data data REASON VOLUNTE No No No No Feb 08 FOR ER/MEDI informa informa informa informa 2012 REQUEST JADIEL tion in tion in tion in tion in 10:30 PROBLEM source source source source AM data data data data SPECIME URINE No No No No Feb 08 N informa informa informa informa 2012 SOURCE tion in tion in tion in tion in 10:30 source source source source AM data data data data PREGNAN NO No No No No Feb 08 T informa informa informa informa 2012 tion in tion in tion in tion in 10:30 source source source source AM data data data data CHART NA No No No No Feb 08 NUMBER informa informa informa informa 2012 tion in tion in tion in tion in 10:30 source source source source AM data data data data Chlamyd Pending No No No No Feb 08 ia informa informa informa informa 2012 trachom tion in tion in tion in tion in 10:30 atis source source source source AM rRNA data data data data [Presen ce] in Unspeci fied specime n by Probe & target amplifi cation method Neisser Pending No No No \.br\Feb 08 ia informa informa informa is 2012 gonorrh tion in tion in tion in report 10:30 oeae source source source contain AM rRNA data data data s [Presen patient ce] in Unspeci informa fied tion specime that n by must be Probe & target protect ed in amplifi accorda cation nce method with the Health Insuran ce Portabi lity and Account ability Act.
--- OUTSIDE RECORDS SUMMARY | 2017-01-28 17:50 | External Medical Summary Rpt | CCD ---
Demographics Preferred Language Thai Marital Status Unknown Gnosticist Affiliation Unknown Race Unknown Ethnic Group Unknown Author Author , EVELYN RIVAS Address Unknown Phone Immunization No patient found.
--- OUTSIDE RECORDS SUMMARY | 2017-01-28 17:50 | External Medical Summary Rpt | CCD ---
Demographics Preferred Language Czech Marital Status Unknown Anabaptism Affiliation Unknown Race Unknown Ethnic Group Unknown Author Author , EVELYN RIVAS Address Unknown Phone Immunization No patient found.
--- OUTSIDE RECORDS SUMMARY | 2017-01-28 17:50 | External Medical Summary Rpt ---
[...] MAY HAVE ADVERSE PSYCHO- SOCIAL IMPACT, THE [facility] MMENDS RETESTI NG.\.br \This report contain s [...]
--- NOTE | 2017-01-28 19:13 | Urgent Treatment Center Report ---
History of Present Issue Date/Time Seen by Provider 01/28/171912 Visit Reason Pt arrived:Walked Presenting Problem:SORE THROAT, FEVER X3 DAYS Location if Accident: Onset of symptoms date/time:/ or onset unknown for:MEDICAL HX UNKNOWN Have you (or family members/close friends) recently traveled outside the [place]? N If Yes, where/when: Have you had exposure to infectious disease within the past month? TB? Other? Specify: Patient state that she was exposed to the "flu" last week from a family member that tested positive State that she has been having fever, sore throat and over all not feeling well now for around 3 days States that now her children are sick too so she thought she better come in and have everyone checked to see if they have the flu or strep throat ALLERGIES Coded Allergies: latex (Mild, I-ITCHING 10/07/15) Onion (O-ARNCJA-SBVT/THROAT 10/07/15) PEANUTS (FOOD) (From PEANUTS (FOOD/DRUG)) (N-JPAMZO-EBQL/THROAT 10/07/15) Shrimp (10/07/15) cinnamon (10/07/15) methylprednisolone (10/07/15) onion (10/07/15) Home Medications Active Scripts Hydroxyzine Pamoate (Vistaril 25MG CAP) 25 MG PO Q6HP PRN anxiety #10 CAP Prov: 09/07/16 Reported Medications Bisoprolol Fumarate 5 MG PO DAILY #30 Albuterol Sulfate (Ventolin Hfa) 0.09 MG IH Q6HP PRN ASTHMA #18 History Medical History General CAD? No Angina: No [place]: No Hypertension? Yes Hyperlipidemia? No CHF? No DVT? No PE? No COPD? No Asthma? Yes Anemia? No GERD? Yes Gastric ulcers? No GI Bleed? No Hernia? No Thyroid Problems? No Hypothyroidism? No CVA? No Seizures? No Diabetes? No Insulin Dependent: No Insulin Pump: No Home FSBS? No Renal Insuffiency? No UTI? No Stones? No BPH? No GB Disease: No Nephritic Syndrome? No Asplenia? No Hepatitis? No Sickle Cell Disease? No Arthritis? No Migraines? No Cataracts? No Glaucoma? No MRSA? No HIV? No TB? No Anxiety? Yes Depression? Yes Cancer? No More? Yes Additional hx: HEART PALPITATIONS Immunization HX DT/Tetanus 1-4 Years Ago Flu Refused Pneumonia Unknown Surgical Hx Previous Surgery?Y WISDOM TEETH D & C Family History Family HX Diabetes Yes CAD Yes Hypertension Yes Hyperlipidemia No Cancer Yes TB No Social History Smoking Hx Smoker: Never Smoker Tobacco: No Alcohol Alcohol: No Review of Systems All Other Systems Reviewed and Negative Constitutional fever ENT nose congestion, throat pain. Respiratory cough Physical Exam Vital Signs Vital Signs Date Time Temp Pulse Resp B/P Pulse O2 O2 Flow FiO2 Ox Delivery Rate 01/28 1910 98.7 88 18 100 General Appearance normal appearance, WD/WN, no apparent distress Ear, Nose, Throat Mild pharyngeal erythema, no exudate, mild drainage noted Respiratory Status Yes: trachea midline, chest symmetrical, non tender chest. No: respiratory distress. Cardiovascular normal exam, regular rate/rhythm, no peripheral edema Neurologic alert, normal exam, oriented x 3 Medical Decision Making LABS/Meds/Orders Pt receiving controlled substance in ED? No Departure Departure Time of Disposition 1939 Disposition DC Home or Self Care(routine) Clinical Impression Primary Impression: Viral upper respiratory infection Condition STABLE Patient Instructions DI for Fever (Symptom) -- Adult, Sore Throat Additional Instructions * Monitor Temp. Tylenol and/or Ibuprofen as needed. ER if fever is no less than 101 despite alternating Tylenol and Ibuprofen * Encourage fluids, water, Gatorade, powerade, pedialyte if infant/toddler/or child * Warm salt water gargles for throat irritation *Warm fluids *Sore throat lozenges *Sleep elevated *humidifier or vaporizer Lots of rest Increase fluids, water, Gatorade, powerade *Flonase 2 sprays each nostril daily but may take 2-3 days to notice improvement with it *Bromfed may cause drowsiness. Know how it effect you or your child. Before driving, caring for small children or sending your child to school *Your throat swab was sent to lab for culture. Those results area typically sent to your primary care physician. Be sure to follow up in 2-3 days if no improvement so they can review those results and treat if necessary If you dont have primary care I recommend you get one, but in the mean time you will have to return to a walk in clinic Follow up IMMEDIATELY for new or worsening of symptoms OR no noticeable improvement over the next 48-72 hours. 911 immediately for any life threatening symptoms such as chest pain or difficulty breathing Follow up with family doctor if symptoms persist or worsen Discharge Counseling Counseled pt/family regarding diagnosis, test results, home care, follow up needs at 1941
[2017-01-28 19:43] LABS: UTC STREP SCREEN NOT DETECTED (NOTDETECTED)
[2017-01-28 19:47] VITALS: BP 128/85
== END 2017-01-28 19:48 | disposition home or self-care (01) ==
LOC: UTC 17:45
PROVIDERS: Nurse Practitioner
DX: J06.9 Acute upper respiratory infection, unspecified (principal)